=== PATIENT | male | born 1945 | race Caucasian/White ===

== ENCOUNTER 2022-01-22 03:25 | Emergency (ER) | payer MEDICARE, OTHER ==
[~2022-01-22] VITALS: Ht 185.4 cm; Wt 102.0 kg
[~2022-01-22 03:25] MED LIST: HYDROCHLOROTHIA25 MG PO; LOSARTAN POTASS50 MG PO
[2022-01-22] MEDS ORDERED: ATORVASTATIN CA10 MG PO (03:40)
[2022-01-22] MEDS ORDERED: BENZONATATE100 MG PO (05:15)
== END 2022-01-22 05:40 | disposition home or self-care (01) ==
LOC: ED 03:25
DX: J18.9 Pneumonia, unspecified organism (principal); E78.00 Pure hypercholesterolemia, unspecified; Z79.899 Other long term (current) drug therapy
CPT/HCPCS: 36415; 71046; 80053; 83880; 85025; 99285-25

== ENCOUNTER 2022-10-03 10:32 | Emergency (ER) | payer MEDICARE, OTHER ==
[~2022-10-03] VITALS: Ht 185.4 cm; Wt 104.2 kg
[~2022-10-03 10:32] MED LIST changes: +ATORVASTATIN CA10 MG PO; +BENZONATATE100 MG PO
[2022-10-03] MEDS ORDERED: HYDROCHLOROTHIA25 MG PO (10:48)
[2022-10-03] MEDS ORDERED: CEPHALEXIN500 M1 PO (11:20)
== END 2022-10-03 14:11 | disposition home or self-care (01) ==
LOC: ED 10:32
PROC: 0KQC0ZZ Repair Right Hand Muscle, Open Approach (ICD-10-PCS; principal; 2022-10-03)
DX: S66.821A Laceration of other specified muscles, fascia and tendons at wrist and hand level, right hand, initial encounter (principal); Z23 Encounter for immunization; Z79.899 Other long term (current) drug therapy; W27.0XXA Contact with workbench tool, initial encounter
CPT/HCPCS: 12002; 90471; 90715; 99282-25; A9270; J1885

== ENCOUNTER 2023-04-11 08:25 | Emergency (ER) | payer MEDICARE, OTHER ==
[~2023-04-11] VITALS: Ht 185.4 cm; Wt 103.9 kg
--- OUTSIDE RECORDS SUMMARY | ~2023-04-11 | XMS | Continuity of Care Document ---
Demographics + + + | Address | [address] | | | [place] [address] | + + + | Preferred Language | Unknown | + + + | Marital Status | | + + + | Jain Affiliation | Unknown | + + + | Race | White | + + + | Ethnic Group | or | + + + Author + + + | Author | [facility] | + + + | Organization | [facility] | + + + | Address | [address] | | | [place] [address] | + + + | Phone | | + + + Care Team Providers + + + + | Care Buffing Machine Tender Name | Role | Phone | + + + + Unavailable | Unavailable | + + + + Unavailable | Unavailable | + + + + Unavailable | Unavailable | + + + + Unavailable | Unavailable | + + + + Unavailable | Unavailable | + + + + Unavailable | Unavailable | + + + + Allergies and Intolerances + + + + + + | date | description | facility | reaction | severity | + + + + + + | (no date) | NO ALLERGY | [facility] | (no reaction) | (no severity) | | | INFORMATION | [facility] System - | | | | | AVAILABLE | [place] | | | + + + + + + | (no date) | NO KNOWN | [facility] | (no reaction) | (no severity) | | | ALLERGIES | Health System - | | | | | | [place] | | | + + + + + + | (no date) | No Known Drug | [facility] | (no reaction) | (no severity) | | | Allergies | | | | + + + + + + | (no date) | NO KNOWN | [facility] | (no reaction) | (no severity) | | | ALLERGIES | | | | + + + + + + Encounters No information. Functional Status No information. Immunizations + + + + | date | description | facility | + + + + | 2022-10-03 00:00 | Tdap | [facility] | + + + + Medications + + + + | date | description | facility | + + + + | 2022-10-03 00:00 | CEPHALEXIN | [facility] | + + + + | 2021-11-12 00:00 | [id number] 200 actuat | [facility] | | | albuterol 0.09 mg/actuat | [facility] [place] | | | metered dose inhaler | | + + + + | 2022-10-03 00:00 | HYDROCHLOROTHIAZIDE | [facility] | + + + + | 2021-02-25 00:00 | hydrochlorothiazide 25 mg | [facility] | | | oral tablet | [facility] [place] | + + + + | 2022-10-03 00:00 | ATORVASTATIN CALCIUM | [facility] | + + + + | 2020-12-31 00:00 | atorvastatin calcium 10 mg | [facility] | | | oral tablet | [facility] [place] | + + + + | 2022-01-06 00:00 | fluticasone propionate 0.25 | [facility] | | | mg / salmeterol 0.05 mg | [facility] [place] | | | per actuat dry powder | | | | inhaler, 60 actuat | | + + + + | 2022-10-03 00:00 | LOSARTAN POTASSIUM | [facility] | + + + + | 2022-01-14 00:00 | losartan potassium 50 mg | [facility] | | | oral tablet | [facility] [place] | + + + + Problems + + + + | date | description | facility | + + + + | (no date) | Pneumonia, unspecified | [facility] - | | | organism | [place] | + + + + | (no date) | Abnormal findings on | [facility] - | | | diagnostic imaging of other | [place] | | | specified body structures | | + + + + | (no date) | Abnormal findings on | [facility] - | | | diagnostic imaging of other | [place] | | | specified body structures | | + + + + | (no date) | Encounter for screening | [facility] - | | | for infectious and | [place] | | | parasitic diseases, | | | | unspecified | | + + + + | 2022-01-13 00:00 | imaging of thorax abnormal | [facility] | | | (finding) | [facility] [place] | + + + + | 2022-01-13 00:00 | upward displacement of | [facility] | | | diaphragm | [facility] [place] | + + + + | 2022-01-13 00:00 | Elevated diaphragm | [facility] | | | | [facility] [place] | + + + + | 2022-01-13 00:00 | Abnormal CXR | [facility] | | | | [facility] [place] | + + + + | 2022-01-13 07:52:12 | Abnormal findings on | [facility] - | | | diagnostic imaging of other | [place] | | | specified body structures | | + + + + | 2022-01-13 11:21:09 | Disorders of diaphragm | [facility] - | | | | [place] | + + + + | 2022-01-13 11:21:09 | Abnormal findings on | [facility] - | | | diagnostic imaging of other | [place] | | | specified body structures | | + + + + | 2022-01-13 12:30:36 | Abnormal findings on | [facility] - | | | diagnostic imaging of other | [place] | | | specified body structures | | + + + + | 2022-01-13 13:02:15 | Abnormal findings on | [facility] - | | | diagnostic imaging of other | [place] | | | specified body structures | | + + + + | 2022-01-22 00:00 | Atypical pneumonia | [facility] | + + + + | 2022-01-22 03:27 | Pure hypercholesterolemia, | [facility] | | | unspecified | [facility] | + + + + | 2022-01-22 03:27 | Pneumonia, unspecified | [facility] | | | organism | [facility] | + + + + | 2022-01-22 03:27 | Cough, unspecified | [facility] | | | | [facility] | + + + + | 2022-01-22 03:27 | Other retirement (current) | [facility] | | | drug therapy | [facility] | + + + + | 2022-03-12 07:28 | Other nonspecific abnormal | [facility] - | | | finding of lung field | [place] | + + + + | 2022-03-19 10:30:59 | Pneumonia, unspecified | [facility] - | | | organism | [place] | + + + + | 2022-04-28 11:47:19 | Pneumonia, unspecified | [facility] - | | | organism | [place] | + + + + | 2022-05-10 14:58 | Diarrhea | [facility] | + + + + | 2022-05-10 19:47:36 | Pneumonia, unspecified | [facility] | | | organism | | + + + + | 2022-07-02 07:13 | SPONDYLOSIS, UNSPECIFIED | [facility] | + + + + | 2022-10-03 00:00 | Laceration of hand | [facility] | + + + + Procedures No information. Results/Labs +--------+--------+ +---------+--------+---------+ | test | date | facility | value | unit | notes | +--------+--------+ +---------+--------+---------+ + + | Result panel 1 | + + + + + + + + + | Specimen | (no date) | [facility] | (missing) | (missing) | (missing) | | collection | | Pulmonary | | | | | (procedure) | | [facility] [place] | | | | + + + + + + + + + | Result panel 2 | + + + + + + + + + | Specimen | (no date) | [facility] | (missing) | (missing) | (missing) | | collection | | Pulmonary | | | | | (procedure) | | [facility] [place] | | | | + + + + + + + + + | Result panel 3 | + + + + + + + + + | | (no date) | [facility] | (missing) | (missing) | (missing) | | (unavailable | | Pulmonary | | | | | ) | | [facility] [place] | | | | + + + + + + + + + | Result panel 4 | + + + + + + + + + | Specimen | (no date) | [facility] | (missing) | (missing) | (missing) | | collection | | Pulmonary | | | | | (procedure) | | [facility] [place] | | | | + + + + + + + + + | Result panel 5 | + + + + + + + + + | | (no date) | [facility] | (missing) | (missing) | (missing) | | (unavailable | | Pulmonary | | | | | ) | | [facility] [place] | | | | + + + + + + + + + | Result panel 6 | + + + + + + + + + | Specimen | (no date) | [facility] | (missing) | (missing) | (missing) | | collection | | Pulmonary | | | | | (procedure) | | [facility] [place] | | | | + + + + + + + + + | Result panel 7 | + + + + + + + + + | | (no date) | [facility] | (missing) | (missing) | (missing) | | (unavailable | | Pulmonary | | | | | ) | | [facility] [place] | | | | + + + + + + + + + | Result panel 8 | + + + + + +--------+---------+ + | NRBC/100 | 2022-01-13 | [facility] | 0.0 | % | (missing) | | WBCS BY | 12:30:55 | Health | | | | | AUTOMATED | | System - | | | | | COUNT | | [place] | | | | + + + +--------+---------+ + | NRBC/100 | 2022-01-13 | [facility] | 0.0 | % | (missing) | | WBCS BY | 12:30:55 | Health | | | | | AUTOMATED | | System - | | | | | COUNT | | [place] | | | | + + + +--------+---------+ + | | 2022-01-13 | [facility] | 0.0 | k/mcl | (missing) | | NRBC(10*3/UL | :30:55 | Health | | | | | ) IN BLOOD | | System - | | | | | BY AUTOMATED | | [place] | | | | | COUNT | | | | | | + + + +--------+---------+ + | | 2022-01-13 | [facility] | 0.0 | k/mcl | (missing) | | NRBC(10*3/UL | 12:30:55 | Health | | | | | ) IN BLOOD | | System - | | | | | BY AUTOMATED | | [place] | | | | | COUNT | | | | | | + + + +--------+---------+ + | IMMATURE | 2022-01-13 | [facility] | 0.03 | k/mcl | (missing) | | GRANULOCYTE | 12:30:55 | Health | | | | | (ABS) | | System - | | | | | | | [place] | | | | + + + +--------+---------+ + | IMMATURE | 2022-01-13 | [facility] | 0.03 | k/mcl | (missing) | | GRANULOCYTE | 12:30:55 | Health | | | | | (ABS) | | System - | | | | | | | [place] | | | | + + + +--------+---------+ + | BASOPHILS | 2022-01-13 | [facility] | 0.1 | k/mcl | (missing) | | (10*3/UL) IN | 12:30:55 | Health | | | | | BLOOD BY | | System - | | | | | AUTOMATED | | [place] | | | | | COUNT | | | | | | + + + +--------+---------+ + | BASOPHILS | 2022-01-13 | [facility] | 0.1 | k/mcl | (missing) | | (10*3/UL) IN | 12:30:55 | Health | | | | | BLOOD BY | | System - | | | | | AUTOMATED | | [place] | | | | | COUNT | | | | | | + + + +--------+---------+ + | IMMATURE | 2022-01-13 | [facility] | 0.3 | % | (missing) | | GRANULOCYTE | 12:30:55 | Health | | | | | % (AUTO) | | System - | | | | | | | [place] | | | | + + + +--------+---------+ + | IMMATURE | 2022-01-13 | [facility] | 0.3 | % | (missing) | | GRANULOCYTE | 12:30:55 | Health | | | | | % (AUTO) | | System - | | | | | | | [place] | | | | + + + +--------+---------+ + | EOSINOPHILS | 2022-01-13 | [facility] | 0.3 | k/mcl | (missing) | | (10*3/UL) | 12:30:55 | Health | | | | | IN BLOOD BY | | System - | | | | | AUTOMATED | | [place] | | | | | COUNT | | | | | | + + + +--------+---------+ + | EOSINOPHILS | 2022-01-13 | [facility] | 0.3 | k/mcl | (missing) | | (10*3/UL) | 12:30:55 | Health | | | | | IN BLOOD BY | | System - | | | | | AUTOMATED | | [place] | | | | | COUNT | | | | | | + + + +--------+---------+ + | | 2022-01-13 | [facility] | 0.5 | % | (missing) | | BASOPHILS/10 | 12:30:55 | Health | | | | | 0 LEUKOCYTES | | System - | | | | | IN BLOOD BY | | [place] | | | | | AUTOMATED | | | | | | | COUNT | | | | | | + + + +--------+---------+ + | | 2022-01-13 | [facility] | 0.5 | % | (missing) | | BASOPHILS/10 | 12:30:55 | Health | | | | | 0 LEUKOCYTES | | System - | | | | | IN BLOOD BY | | [place] | | | | | AUTOMATED | | | | | | | COUNT | | | | | | + + + +--------+---------+ + | MONOCYTES | 2022-01-13 | [facility] | 0.9 | k/mcl | (missing) | | (10*3/UL) IN | 12:30:55 | Health | | | | | BLOOD BY | | System - | | | | | AUTOMATED | | [place] | | | | | COUNT | | | | | | + + + +--------+---------+ + | MONOCYTES | 2022-01-13 | [facility] | 0.9 | k/mcl | (missing) | | (10*3/UL) IN | 12:30:55 | Health | | | | | BLOOD BY | | System - | | | | | AUTOMATED | | [place] | | | | | COUNT | | | | | | + + + +--------+---------+ + | PLATELET | 2022-01-13 | [facility] | 10.9 | fl | (missing) | | MEAN VOLUME | 12:30:55 | Health | | | | | (FL) IN | | System - | | | | | BLOOD BY | | [place] | | | | | AUTOMATED | | | | | | | COUNT | | | | | | + + + +--------+---------+ + | PLATELET | 2022-01-13 | [facility] | 10.9 | fl | (missing) | | MEAN VOLUME | 12:30:55 | Health | | | | | (FL) IN | | System - | | | | | BLOOD BY | | [place] | | | | | AUTOMATED | | | | | | | COUNT | | | | | | + + + +--------+---------+ + | | 2022-01-13 | [facility] | 11.6 | k/mcl | (missing) | | LEUKOCYTES(1 | 12:30:55 | Health | | | | | 0*3/UL) IN | | System - | | | | | BLOOD BY | | [place] | | | | | AUTOMATED | | | | | | | COUNT | | | | | | + + + +--------+---------+ + | | 2022-01-13 | [facility] | 11.6 | k/mcl | (missing) | | LEUKOCYTES(1 | 12::55 | Health | | | | | 0*3/UL) IN | | System - | | | | | BLOOD BY | | [place] | | | | | AUTOMATED | | | | | | | COUNT | | | | | | + + + +--------+---------+ + | HEMOGLOBIN | 2022-01-13 | [facility] | 13.9 | g/dl | (missing) | | (G/DL) IN | 12:30:55 | Health | | | | | BLOOD | | System - | | | | | | | [place] | | | | + + + +--------+---------+ + | HEMOGLOBIN | 2022-01-13 | [facility] | 13.9 | g/dl | (missing) | | (G/DL) IN | 12:30:55 | Health | | | | | BLOOD | | System - | | | | | | | [place] | | | | + + + +--------+---------+ + | ERYTHROCYTE | 2022-01-13 | [facility] | 14.8 | % | (missing) | | | 12:30:55 | Health | | | | | DISTRIBUTION | | System - | | | | | WIDTH | | [place] | | | | | (RATIO) BY | | | | | | | AUTOMATED | | | | | | | COUNT | | | | | | + + + +--------+---------+ + | ERYTHROCYTE | 2022-01-13 | [facility] | 14.8 | % | (missing) | | | 12:30:55 | Health | | | | | DISTRIBUTION | | System - | | | | | WIDTH | | [place] | | | | | (RATIO) BY | | | | | | | AUTOMATED | | | | | | | COUNT | | | | | | + + + +--------+---------+ + | | 2022-01-13 | [facility] | 2.2 | % | (missing) | | EOSINOPHILS/ | 12:30:55 | Health | | | | | 100 | | System - | | | | | LEUKOCYTES | | [place] | | | | | IN BLOOD BY | | | | | | | AUTOMATED | | | | | | | COUNT | | | | | | + + + +--------+---------+ + | | 2022-01-13 | [facility] | 2.2 | % | (missing) | | EOSINOPHILS/ | 12:30:55 | Health | | | | | 100 | | System - | | | | | LEUKOCYTES | | [place] | | | | | IN BLOOD BY | | | | | | | AUTOMATED | | | | | | | COUNT | | | | | | + + + +--------+---------+ + | LYMPHOCYTES | 2022-01-13 | [facility] | 2.9 | k/mcl | (missing) | | (10*3/UL) | 12:30:55 | Health | | | | | IN BLOOD BY | | System - | | | | | AUTOMATED | | [place] | | | | | COUNT | | | | | | + + + +--------+---------+ + | LYMPHOCYTES | 2022-01-13 | [facility] | 2.9 | k/mcl | (missing) | | (10*3/UL) | 12:30:55 | Health | | | | | IN BLOOD BY | | System - | | | | | AUTOMATED | | [place] | | | | | COUNT | | | | | | + + + +--------+---------+ + | PLATELETS | 2022-01-13 | [facility] | 206 | k/mcl | (missing) | | (10*3/UL) IN | 12:30:55 | Health | | | | | BLOOD | | System - | | | | | AUTOMATED | | [place] | | | | | COUNT | | | | | | + + + +--------+---------+ + | PLATELETS | 2022-01-13 | [facility] | 206 | k/mcl | (missing) | | (10*3/UL) IN | 12:30:55 | Health | | | | | BLOOD | | System - | | | | | AUTOMATED | | [place] | | | | | COUNT | | | | | | + + + +--------+---------+ + | | 2022-01-13 | [facility] | 24.8 | % | (missing) | | LYMPHOCYTES/ | 12:30:55 | Health | | | | | 100 | | System - | | | | | LEUKOCYTES | | [place] | | | | | IN BLOOD BY | | | | | | | AUTOMATED | | | | | | | COUNT | | | | | | + + + +--------+---------+ + | | 2022-01-13 | [facility] | 24.8 | % | (missing) | | LYMPHOCYTES/ | 12:30:55 | Health | | | | | 100 | | System - | | | | | LEUKOCYTES | | [place] | | | | | IN BLOOD BY | | | | | | | AUTOMATED | | | | | | | COUNT | | | | | | + + + +--------+---------+ + | ERYTHROCYTE | 2022-01-13 | [facility] | 29.1 | pg | (missing) | | MEAN | 12:30:55 | Health | | | | | CORPUSCULAR | | System - | | | | | HEMOGLOBIN | | [place] | | | | | (PG) BY | | | | | | | AUTOMATED | | | | | | | COUNT | | | | | | + + + +--------+---------+ + | ERYTHROCYTE | 2022-01-13 | [facility] | 29.1 | pg | (missing) | | MEAN | 12:30:55 | Health | | | | | CORPUSCULAR | | System - | | | | | HEMOGLOBIN | | [place] | | | | | (PG) BY | | | | | | | AUTOMATED | | | | | | | COUNT | | | | | | + + + +--------+---------+ + | ERYTHROCYTE | 2022-01-13 | [facility] | 32.4 | g/dl | (missing) | | MEAN | 12:30:55 | Health | | | | | CORPUSCULAR | | System - | | | | | HEMOGLOBIN | | [place] | | | | | CONCENTRATIO | | | | | | | N (G/DL) BY | | | | | | | AUTOMATED | | | | | | + + + +--------+---------+ + | ERYTHROCYTE | 2022-01-13 | [facility] | 32.4 | g/dl | (missing) | | MEAN | 12:30:55 | Health | | | | | CORPUSCULAR | | System - | | | | | HEMOGLOBIN | | [place] | | | | | CONCENTRATIO | | | | | | | N (G/DL) BY | | | | | | | AUTOMATED | | | | | | + + + +--------+---------+ + | | 2022-01-13 | [facility] | 4.78 | m/mcl | (missing) | | ERYTHROCYTES | 12:30:55 | Health | | | | | (10*6/UL) | | System - | | | | | IN BLOOD BY | | [place] | | | | | AUTOMATED | | | | | | | COUNT | | | | | | + + + +--------+---------+ + | | 2022-01-13 | [facility] | 4.78 | m/mcl | (missing) | | ERYTHROCYTES | 12:30:55 | Health | | | | | (10*6/UL) | | System - | | | | | IN BLOOD BY | | [place] | | | | | AUTOMATED | | | | | | | COUNT | | | | | | + + + +--------+---------+ + | HEMATOCRIT | 2022-01-13 | [facility] | 42.9 | % | (missing) | | (%) IN BLOOD | 12:30:55 | Health | | | | | BY | | System - | | | | | AUTOMATED | | [place] | | | | | COUNT | | | | | | + + + +--------+---------+ + | HEMATOCRIT | 2022-01-13 | [facility] | 42.9 | % | (missing) | | (%) IN BLOOD | 12:30:55 | Health | | | | | BY | | System - | | | | | AUTOMATED | | [place] | | | | | COUNT | | | | | | + + + +--------+---------+ + | | 2022-01-13 | [facility] | 64.6 | % | (missing) | | NEUTROPHILS/ | 12:30:55 | Health | | | | | 100 | | System - | | | | | LEUKOCYTES | | [place] | | | | | IN BLOOD BY | | | | | | | AUTOMATED | | | | | | | COUNT | | | | | | + + + +--------+---------+ + | | 2022-01-13 | [facility] | 64.6 | % | (missing) | | NEUTROPHILS/ | 12:30:55 | Health | | | | | 100 | | System - | | | | | LEUKOCYTES | | [place] | | | | | IN BLOOD BY | | | | | | | AUTOMATED | | | | | | | COUNT | | | | | | + + + +--------+---------+ + | NEUTROPHILS | 2022-01-13 | [facility] | 7.5 | k/mcl | (missing) | | (10*3/UL) | 12:30:55 | Health | | | | | IN BLOOD BY | | System - | | | | | AUTOMATED | | [place] | | | | | COUNT | | | | | | + + + +--------+---------+ + | NEUTROPHILS | 2022-01-13 | [facility] | 7.5 | k/mcl | (missing) | | (10*3/UL) | 12:30:55 | Health | | | | | IN BLOOD BY | | System - | | | | | AUTOMATED | | [place] | | | | | COUNT | | | | | | + + + +--------+---------+ + | | 2022-01-13 | [facility] | 7.6 | % | (missing) | | MONOCYTES/10 | 12:30:55 | Health | | | | | 0 LEUKOCYTES | | System - | | | | | IN BLOOD BY | | [place] | | | | | AUTOMATED | | | | | | | COUNT | | | | | | + + + +--------+---------+ + | | 2022-01-13 | [facility] | 7.6 | % | (missing) | | MONOCYTES/10 | 12::55 | Health | | | | | 0 LEUKOCYTES | | System - | | | | | IN BLOOD BY | | [place] | | | | | AUTOMATED | | | | | | | COUNT | | | | | | + + + +--------+---------+ + | ERYTHROCYTE | 2022-01-13 | [facility] | 89.7 | fl | (missing) | | MEAN | 12:30:55 | Health | | | | | CORPUSCULAR | | System - | | | | | VOLUME (FL) | | [place] | | | | | BY AUTOMATED | | | | | | | COUNT | | | | | | + + + +--------+---------+ + | ERYTHROCYTE | 2022-01-13 | [facility] | 89.7 | fl | (missing) | | MEAN | 12:30:55 | Health | | | | | CORPUSCULAR | | System - | | | | | VOLUME (FL) | | [place] | | | | | BY AUTOMATED | | | | | | | COUNT | | | | | | + + + +--------+---------+ + + + | Result panel 9 | + + + + + + + + + | A. FLAVUS | 2022-01-13 | [facility] | (missing) | (missing) | (missing) | | AB, | 12:30:56 | Health | | | | | PRECIPITIN | | System - | | | | | | | [place] | | | | + + + + + + + | A. | 2022-01-13 | [facility] | (missing) | (missing) | (missing) | | FUMIGATUS #1 | 12:30:56 | Health | | | | | AB, | | System - | | | | | PRECIPITIN | | [place] | | | | + + + + + + + | A. | 2022-01-13 | [facility] | (missing) | (missing) | (missing) | | FUMIGATUS #2 | 12:30:56 | Health | | | | | AB, | | System - | | | | | PRECIPITIN | | [place] | | | | + + + + + + + | A. | 2022-01-13 | [facility] | (missing) | (missing) | (missing) | | FUMIGATUS #3 | 12:30:56 | Health | | | | | AB, | | System - | | | | | PRECIPITIN | | [place] | | | | + + + + + + + | A. | 2022-01-13 | [facility] | (missing) | (missing) | (missing) | | FUMIGATUS #6 | 12:30:56 | Health | | | | | AB, | | System - | | | | | PRECIPITIN | | [place] | | | | + + + + + + + | A. | 2022-01-13 | [facility] | (missing) | (missing) | (missing) | | PULLULANS | 12:30:56 | Health | | | | | AB, | | System - | | | | | PRECIPITIN | | [place] | | | | + + + + + + + | ALLERGEN, | 2022-01-13 | [facility] | (missing) | (missing) | (missing) | | ANIMAL, | 12:30:56 | Health | | | | | FEATHER MIX | | System - | | | | | IGE | | [place] | | | | + + + + + + + | ALLERGEN, | 2022-01-13 | [facility] | (missing) | (missing) | (missing) | | FOOD, BEEF | 12:30:56 | Health | | | | | IGE | | System - | | | | | | | [place] | | | | + + + + + + + | ALLERGEN, | 2022-01-13 | [facility] | (missing) | (missing) | (missing) | | FOOD, PORK | 12:30:56 | Health | | | | | IGE | | System - | | | | | | | [place] | | | | + + + + + + + | ALLERGEN, | 2022-01-13 | [facility] | (missing) | (missing) | (missing) | | FUNGI/MOLD, | 12:30:56 | Health | | | | | PHOMA BETAE | | System - | | | | | IGE | | [place] | | | | + + + + + + + | ALLERGEN, | 2022-01-13 | [facility] | (missing) | (missing) | (missing) | | INTERP, | 12:30:56 | Health | | | | | IMMUNOCAP | | System - | | | | | SCORE IGE | | [place] | | | | + + + + + + + | Karyna CULVER | 2022-01-13 | [facility] | (missing) | (missing) | (missing) | | AB, | 12:30:56 | Health | | | | | PRECIPITIN | | System - | | | | | | | [place] | | | | + + + + + + + | TOMYON | 2022-01-13 | [facility] | (missing) | (missing) | (missing) | | SERUM AB, | 12:30:56 | Health | | | | | PRECIPITIN | | System - | | | | | | | [place] | | | | + + + + + + + | Deyanira DAIGLE | 2022-01-13 | [facility] | (missing) | (missing) | (missing) | | AB, | 12:30:56 | Health | | | | | PRECIPITIN | | System - | | | | | | | [place] | | | | + + + + + + + | T. CANDIDUS | 2022-01-13 | [facility] | (missing) | (missing) | (missing) | | AB, | 12:30:56 | Health | | | | | PRECIPITIN | | System - | | | | | | | [place] | | | | + + + + + + + | T. VULGARIS | 2022-01-13 | [facility] | (missing) | (missing) | (missing) | | #1 AB, | 12:30:56 | Health | | | | | PRECIPITIN | | System - | | | | | | | [place] | | | | + + + + + + + | A. | 2022-01-13 | [facility] | (missing) | (missing) | (missing) | | FUMIGATUS #3 | 12:30:56 | Health | | | | | AB, | | System - | | | | | PRECIPITIN | | [place] | | | | + + + + + + + | S. VIRIDIS | 2022-01-13 | [facility] | (missing) | (missing) | (missing) | | AB, | 12:30:56 | Health | | | | | PRECIPITIN | | System - | | | | | | | [place] | | | | + + + + + + + | T. MADYSONUS | 2022-01-13 | [facility] | (missing) | (missing) | (missing) | | AB, | 12:30:56 | Health | | | | | PRECIPITIN | | System - | | | | | | | [place] | | | | + + + + + + + | A. FLAVUS | 2022-01-13 | [facility] | (missing) | (missing) | (missing) | | AB, | 12:30:56 | Health | | | | | PRECIPITIN | | System - | | | | | | | [place] | | | | + + + + + + + | A. | 2022-01-13 | [facility] | (missing) | (missing) | (missing) | | FUMIGATUS #2 | 12:30:56 | Health | | | | | AB, | | System - | | | | | PRECIPITIN | | [place] | | | | + + + + + + + | ALLERGEN, | 2022-01-13 | [facility] | (missing) | (missing) | (missing) | | ANIMAL, | 12:30:56 | Health | | | | | FEATHER MIX | | System - | | | | | IGE | | [place] | | | | + + + + + + + | ALLERGEN, | 2022-01-13 | [facility] | (missing) | (missing) | (missing) | | INTERP, | 12:30:56 | Health | | | | | IMMUNOCAP | | System - | | | | | SCORE IGE | | [place] | | | | + + + + + + + | T. VULGARIS | 2022-01-13 | [facility] | (missing) | (missing) | (missing) | | #1 AB, | 12:30:56 | Health | | | | | PRECIPITIN | | System - | | | | | | | [place] | | | | + + + + + + + | ALLERGEN, | 2022-01-13 | [facility] | (missing) | (missing) | (missing) | | FOOD, BEEF | 12:30:56 | Health | | | | | IGE | | System - | | | | | | | [place] | | | | + + + + + + + | ALLERGEN, | 2022-01-13 | [facility] | (missing) | (missing) | (missing) | | FUNGI/MOLD, | 12:30:56 | Health | | | | | PHOMA BETAE | | System - | | | | | IGE | | [place] | | | | + + + + + + + | ALLERGEN, | 2022-01-13 | [facility] | (missing) | (missing) | (missing) | | FOOD, PORK | 12:30:56 | Health | | | | | IGE | | System - | | | | | | | [place] | | | | + + + + + + + | PIGEON | 2022-01-13 | [facility] | (missing) | (missing) | (missing) | | SERUM AB, | 12:30:56 | Health | | | | | PRECIPITIN | | System - | | | | | | | [place] | | | | + + + + + + + | A. | 2022-01-13 | [facility] | (missing) | (missing) | (missing) | | FUMIGATUS #1 | 12:30:56 | Health | | | | | AB, | | System - | | | | | PRECIPITIN | | [place] | | | | + + + + + + + | A. | 2022-01-13 | [facility] | (missing) | (missing) | (missing) | | FUMIGATUS #6 | 12:30:56 | Health | | | | | AB, | | System - | | | | | PRECIPITIN | | [place] | | | | + + + + + + + | A. | 2022-01-13 | [facility] | (missing) | (missing) | (missing) | | [facility] | 12:30:56 | Health | | | | | AB, | | System - | | | | | PRECIPITIN | | [place] | | | | + + + + + + + | Karyna CULVER | 2022-01-13 | [facility] | (missing) | (missing) | (missing) | | AB, | 12:30:56 | Health | | | | | PRECIPITIN | | System - | | | | | | | [place] | | | | + + + + + + + | ANTINUCLEAR | 2022-01-13 | [facility] | <1:80 | (missing) | (missing) | | AB, HEP-2 | 12:30:56 | Health | (Negative) | | | | SUBSTRATE, S | | System - | | | | | | | [place] | | | | + + + + + + + | ANTINUCLEAR | 2022-01-13 | [facility] | <1:80 | (missing) | | | AB, HEP-2 | 12:30:56 | Health | (Negative) | | -------ADDIT | | SUBSTRATE, S | | System - | | | IONAL | | | | [place] | | | INFORMATION- | | | | | | | | | | | | | | ------ | | | | | | | Method: | | | | | | | Immunofluore | | | | | | | scence using | | | | | | | HEp-2 | | | | | | | cellular | | | | | | | substrate. | | | | | | | Test | | | | | | | Performed | | | | | | | by: [facility] | | [facility] | [facility] | | | | | | | Laboratories | | | | | | | - [address] | | | | | | | [address] | | | | | | | [address] | | | [address] | | [address], | | | | | | | [place], | | | | | | | [place] [address] Lab | | | | | | | Director: | | | | | | | Robert Flowers | | | | | | | [facility] | | | | | | | Ph.D.; CHARISIA# | | | | | | | [id number] | + + + + + + + | C REACTIVE | 2022-01-13 | [facility] | 1.30 | mg/dl | (missing) | | PROTEIN | 12:30:56 | Health | | | | | (MG/DL) IN | | System - | | | | | SER/PLAS | | [place] | | | | + + + + + + + | C REACTIVE | 2022-01-13 | [facility] | 1.30 | mg/dl | (missing) | | PROTEIN | 12:30:56 | Health | | | | | (MG/DL) IN | | System - | | | | | SER/PLAS | | [place] | | | | + + + + + + + | | 2022-01-13 | [facility] | 18 | mm/hr | (missing) | | SEDIMENTATIO | :30:56 | Health | | | | | N RATE, | | System - | | | | | ERYTHROCYTE | | [place] | | | | + + + + + + + | | 2022-01-13 | [facility] | 7.5 | ku/l | (missing) | | IMMUNOGLOBUL | 12:30:56 | Health | | | | | IN E (IGE) | | System - | | | | | | | [place] | | | | + + + + + + + | | 2022-01-13 | [facility] | 7.5 | ku/l | Test | | IMMUNOGLOBUL | 12:30:56 | Health | | | Performed | | IN E (IGE) | | System - | | | by: [facility] | | | | [place] | | | [facility] | | | | | | | [facility] | | | | | | | - [place] | | | | | | | [place] | | | | | | | [address] | | | | | | | [address] | | | | | | | [address], | | | | | | | [place], | | | | | | | [place] [address] Lab | | | | | | | Director: | | | | | | | Robert Flowers | | | | | | | [facility] | | | | | | | Ph.D.; SERGIO# | | | | | | | [id number] | + + + + + + + | C-ANCA | 2022-01-13 | [facility] | Negative | (missing) | (missing) | | | 12:30:56 | Health | | | | | | | System - | | | | | | | [place] | | | | + + + + + + + | P-ANCA | 2022-01-13 | [facility] | Negative | (missing) | (missing) | | | 12:30:56 | Health | | | | | | | System - | | | | | | | [place] | | | | + + + + + + + | C-ANCA | 2022-01-13 | [facility] | Negative | (missing) | (missing) | | | 12:30:56 | Health | | | | | | | System - | | | | | | | [place] | | | | + + + + + + + | P-ANCA | 2022-01-13 | [facility] | Negative | (missing) | Negative for | | | 12:30:56 | Health | | | cANCA and | | | | System - | | | pANCA | | | | [place] | | | patterns by | | | | | | | immunofluore | | | | | | | scence. | | | | | | | | | | | | | | -------ADDIT | | | | | | | IONAL | | | | | | | INFORMATION- | | | | | | | | | | | | | | ------ This | | | | | | | test was | | | | | | | developed | | | | | | | and its | | | | | | | performance | | | | | | | characterist | | | | | | | ics | | | | | | | determined | | | | | | | by [facility] | | [facility] | [facility] in a | | | | | | | manner | | | | | | | consistent | | | | | | | with CLIA | | | | | | | requirements | | | | | | | . This test | | | | | | | has not been | | | | | | | cleared or | | | | | | | approved by | | | | | | | the [place] | | | | | | | Food and | | | | | | | Drug | | | | | | | Administrati | | | | | | | on. Test | | | | | | | Performed | | | | | | | by: [facility] | | | | [facility] | | [facility] | | | | | | | Laboratories | | | | | | | - [place] | | | | | | | [address] | | [address] | | | | | | | [address] | | | | | | | [address], | | | | | | | [place], | | | | | | | [place] [address] Lab | | | | | | | Director: | | | | | | | Robert Flowers | | | | | | | [facility] | | | | | | | Ph.D.; CLIA# | | | | | | | [id number] | + + + + + + + | SCAN RESULT | 2022-01-13 | [facility] | See Scanned | (missing) | (missing) | | | 12:30:56 | Health | Report | | | | | | System - | | | | | | | [place] | | | | + + + + + + + + + | Result panel 10 | + + + + + + + + + | | 2022-01-13 | [facility] | (missing) | (missing) | (missing) | | (unavailable | 13:02:15 | Health | | | | | ) | | System - | | | | | | | [place] | | | | + + + + + + + | | 2022-01-13 | [facility] | BONES: No | (missing) | (missing) | | (unavailable | 13:02:15 | Health | acute or | | | | ) | | System - | suspicious | | | | | | [place] | bony | | | | | | | abnormality. | | | | | | | | | | + + + + + + + | | 2022-01-13 | [facility] | COMPARISON: | (missing) | (missing) | | (unavailable | 13:02:15 | Health | None. | | | | ) | | System - | | | | | | | [place] | | | | + + + + + + + | | 2022-01-13 | [facility] | Electronical | (missing) | (missing) | | (unavailable | 13:02:15 | Health | ly signed | | | | ) | | System - | by: Darin | | | | | | [place] | MD Jamaal | | | | | | | on 01/13/2022 | | | | | | | 1:30 PM at | | | | | | | workstation | | | | | | | [id number] | | | + + + + + + + | | 2022-01-13 | [facility] | FINDINGS: | (missing) | (missing) | | (unavailable | 13:02:15 | Health | | | | | ) | | System - | | | | | | | [place] | | | | + + + + + + + | | 2022-01-13 | [facility] | HEART: | (missing) | (missing) | | (unavailable | 13:02:15 | Health | Normal in | | | | ) | | System - | size. | | | | | | [place] | | | | + + + + + + + | | 2022-01-13 | [facility] | | (missing) | (missing) | | (unavailable | 13:02:15 | Health | INDICATIONS: | | | | ) | | System - | infiltrates | | | | | | [place] | | | | + + + + + + + | | 2022-01-13 | [facility] | Ill-defined | (missing) | (missing) | | (unavailable | :02:15 | Health | bilateral | | | | ) | | System - | peripheral | | | | | | [place] | opacities. | | | | | | | Differential | | | | | | | | | | | | | | consideratio | | | | | | | ns may | | | | | | | include | | | | | | | atypical | | | | | | | infection, | | | | | | | organizing | | | | | | | pneumonia or | | | | | | | chronic | | | | | | | interstitial | | | | | | | lung | | | | | | | disease. | | | | | | | Correlation | | | | | | | with prior | | | | | | | outside | | | | | | | imaging | | | | | | | studies may | | | | | | | be useful. | | | | | | | CT chest per | | | | | | | | | | | | | | high-resolut | | | | | | | ion protocol | | | | | | | could also | | | | | | | be helpful. | | | + + + + + + + | | 2022-01-13 | [facility] | LUNGS: | (missing) | (missing) | | (unavailable | 13:02:15 | Health | Ill-defined | | | | ) | | System - | bilateral | | | | | | [place] | peripheral | | | | | | | opacities.. | | | | | | | No focal | | | | | | | consolidatio | | | | | | | n. No | | | | | | | suspicious | | | | | | | lung | | | | | | | nodules. | | | + + + + + + + | | 2022-01-13 | [facility] | MEDIASTINUM: | (missing) | (missing) | | (unavailable | 13:02:15 | Health | Normal | | | | ) | | System - | mediastinal | | | | | | [place] | contours | | | | | | | without | | | | | | | radiographic | | | | | | | evidence of | | | | | | | | | | | | | | lymphadenopa | | | | | | | thy. | | | + + + + + + + | | 2022-01-13 | [facility] | PLEURAL | (missing) | (missing) | | (unavailable | 13:02:15 | Health | SPACES: No | | | | ) | | System - | pleural | | | | | | [place] | effusion or | | | | | | | pneumothorax | | | | | | | . | | | + + + + + + + | | 2022-01-13 | [facility] | PROCEDURE: | (missing) | (missing) | | (unavailable | 13:02:15 | Health | CHEST - TWO | | | | ) | | System - | VIEWS | | | | | | [place] | | | | + + + + + + + | | 2022-01-13 | [facility] | | (missing) | (missing) | | (unavailable | 13:02:15 | Health | Procedure(s) | | | | ) | | System - | : * No | | | | | | [place] | procedures | | | | | | | listed * | | | + + + + + + + + + | Result panel 11 | + + + + + + + + + | | 2022-01-13 | [facility] | (missing) | (missing) | (missing) | | (unavailable | 20:06:55 | Pulmonary | | | | | ) | | [facility] [place] | | | | + + + + + + + + + | Result panel 12 | + + +--------+ + + + + + | Body | 2022-01-13 | [facility] | (missing) | (missing) | (missing) | | | 20:06:55 | Pulmonary | | | | | | | [facility] [place] | | | | +--------+ + + + + + + + | Result panel 13 | + + + + + +--------+ + + | | 2022-01-13 | [facility] | 11.6 | (missing) | (missing) | | (unavailable | 20:24:35 | Pulmonary | | | | | ) | | [facility] [place] | | | | + + + +--------+ + + + + | Result panel 14 | + + + + + +--------+ + + | | 2022-01-13 | [facility] | 4.78 | (missing) | (missing) | | (unavailable | 20:24:35 | Pulmonary | | | | | ) | | [facility] [place] | | | | + + + +--------+ + + + + | Result panel 15 | + + + + + +--------+--------+ + | | 2022-01-13 | [facility] | 13.9 | g/dL | (missing) | | (unavailable | 20:24:35 | Pulmonary | | | | | ) | | [facility] [place] | | | | + + + +--------+--------+ + + + | Result panel 16 | + + + + + +--------+-----+ + | | 2022-01-13 | [facility] | 42.9 | % | (missing) | | (unavailable | 20:24:35 | Pulmonary | | | | | ) | | [facility] [place] | | | | + + + +--------+-----+ + + + | Result panel 17 | + + + + + +--------+------+ + | | 2022-01-13 | [facility] | 89.7 | fl | (missing) | | (unavailable | 20:24:35 | Pulmonary | | | | | ) | | [facility] [place] | | | | + + + +--------+------+ + + + | Result panel 18 | + + + + + +--------+------+ + | | 2022-01-13 | [facility] | 29.1 | pg | (missing) | | (unavailable | 20:24:35 | Pulmonary | | | | | ) | | [facility] [place] | | | | + + + +--------+------+ + + + | Result panel 19 | + + + + + +--------+--------+ + | | 2022-01-13 | [facility] | 32.4 | g/dL | (missing) | | (unavailable | 20:24:35 | Pulmonary | | | | | ) | | [facility] [place] | | | | + + + +--------+--------+ + + + | Result panel 20 | + + + + + +--------+-----+ + | | 2022-01-13 | [facility] | 14.8 | % | (missing) | | (unavailable | 20:24:35 | Pulmonary | | | | | ) | | [facility] [place] | | | | + + + +--------+-----+ + + + | Result panel 21 | + + + + + +-------+ + + | | 2022-01-13 | [facility] | 206 | (missing) | (missing) | | (unavailable | 20:24:35 | Pulmonary | | | | | ) | | [facility] [place] | | | | + + + +-------+ + + + + | Result panel 22 | + + + + + +--------+------+ + | | 2022-01-13 | [facility] | 10.9 | fl | (missing) | | (unavailable | 20:24:35 | Pulmonary | | | | | ) | | [facility] [place] | | | | + + + +--------+------+ + + + | Result panel 23 | + + + + + +--------+-----+ + | | 2022-01-13 | [facility] | 64.6 | % | (missing) | | (unavailable | 20:24:35 | Pulmonary | | | | | ) | | [facility] [place] | | | | + + + +--------+-----+ + + + | Result panel 24 | + + + + + +--------+-----+ + | | 2022-01-13 | [facility] | 24.8 | % | (missing) | | (unavailable | 20:24:35 | Pulmonary | | | | | ) | | [facility] [place] | | | | + + + +--------+-----+ + + + | Result panel 25 | + + + + + +-------+-----+ + | | 2022-01-13 | [facility] | 7.6 | % | (missing) | | (unavailable | 20:24:35 | Pulmonary | | | | | ) | | [facility] [place] | | | | + + + +-------+-----+ + + + | Result panel 26 | + + + + + +-------+-----+ + | | 2022-01-13 | [facility] | 2.2 | % | (missing) | | (unavailable | 20:24:35 | Pulmonary | | | | | ) | | [facility] [place] | | | | + + + +-------+-----+ + + + | Result panel 27 | + + + + + +-------+-----+ + | | 2022-01-13 | [facility] | 0.5 | % | (missing) | | (unavailable | 20:24:35 | Pulmonary | | | | | ) | | [facility] [place] | | | | + + + +-------+-----+ + + + | Result panel 28 | + + + + + +-------+-----+ + | | 2022-01-13 | [facility] | 0.3 | % | (missing) | | (unavailable | 20:24:35 | Pulmonary | | | | | ) | | [facility] [place] | | | | + + + +-------+-----+ + + + | Result panel 29 | + + + + + +-------+-----+ + | | 2022-01-13 | [facility] | 0.0 | % | (missing) | | (unavailable | 20:24:35 | Pulmonary | | | | | ) | | [facility] [place] | | | | + + + +-------+-----+ + + + | Result panel 30 | + + + + + +-------+ + + | | 2022-01-13 | [facility] | 7.5 | (missing) | (missing) | | (unavailable | 20:24:35 | Pulmonary | | | | | ) | | [facility] [place] | | | | + + + +-------+ + + + + | Result panel 31 | + + + + + +-------+ + + | | 2022-01-13 | [facility] | 2.9 | (missing) | (missing) | | (unavailable | 20:24:35 | Pulmonary | | | | | ) | | [facility] [place] | | | | + + + +-------+ + + + + | Result panel 32 | + + + + + +-------+ + + | | 2022-01-13 | [facility] | 0.9 | (missing) | (missing) | | (unavailable | 20:24:35 | Pulmonary | | | | | ) | | [facility] [place] | | | | + + + +-------+ + + + + | Result panel 33 | + + + + + +-------+ + + | | 2022-01-13 | [facility] | 0.3 | (missing) | (missing) | | (unavailable | 20:24:35 | Pulmonary | | | | | ) | | [facility] [place] | | | | + + + +-------+ + + + + | Result panel 34 | + + + + + +-------+ + + | | 2022-01-13 | [facility] | 0.1 | (missing) | (missing) | | (unavailable | 20:24:35 | Pulmonary | | | | | ) | | [facility] [place] | | | | + + + +-------+ + + + + | Result panel 35 | + + + + + +--------+ + + | | 2022-01-13 | [facility] | 0.03 | (missing) | (missing) | | (unavailable | 20:24:35 | Pulmonary | | | | | ) | | [facility] [place] | | | | + + + +--------+ + + + + | Result panel 36 | + + + + + +-------+ + + | | 2022-01-13 | [facility] | 0.0 | (missing) | (missing) | | (unavailable | 20:24:35 | Pulmonary | | | | | ) | | [facility] [place] | | | | + + + +-------+ + + + + | Result panel 37 | + + + + + + + + + | | 2022-01-13 | [facility] | Abnormal | (missing) | (missing) | | (unavailable | 20:24:35 | Pulmonary | | | | | ) | | [facility] [place] | | | | + + + + + + + + + | Result panel 38 | + + + + + + + + + | | 2022-01-13 | [facility] | (missing) | (missing) | (missing) | | (unavailable | 20:30:29 | Pulmonary | | | | | ) | | [facility] [place] | | | | + + + + + + + + + | Result panel 39 | + + + + + + + + + | | 2022-01-13 | [facility] | (missing) | (missing) | (missing) | | (unavailable | 20:30:29 | Pulmonary | | | | | ) | | [facility] [place] | | | | + + + + + + + + + | Result panel 40 | + + + + + + + + + | | 2022-01-13 | [facility] | (missing) | (missing) | (missing) | | (unavailable | 20:30:29 | Pulmonary | | | | | ) | | [facility] [place] | | | | + + + + + + + + + | Result panel 41 | + + + + + +--------+---------+ + | | 2022-01-13 | [facility] | 1.30 | mg/dL | (missing) | | (unavailable | 20:49:45 | Pulmonary | | | | | ) | | [facility] [place] | | | | + + + +--------+---------+ + + + | Result panel 42 | + + + + + + + + + | | 2022-01-13 | [facility] | Abnormal | (missing) | (missing) | | (unavailable | 20:49:45 | Pulmonary | | | | | ) | | [facility] [place] | | | | + + + + + + + + + | Result panel 43 | + + + + + +------+ + + | Sed Rate | 2022-01-13 | [facility] | 18 | (missing) | (missing) | | | 21:00:47 | Pulmonary | | | | | | | [facility] [place] | | | | + + + +------+ + + + + | Result panel 44 | + + + + + + + + + | | 2022-01-13 | [facility] | Normal | (missing) | (missing) | | (unavailable | 21:00:47 | Pulmonary | | | | | ) | | [facility] [place] | | | | + + + + + + + + + | Result panel 45 | + + + + + + + + + | NON-APPLICATION DEVELOPER MANAGER | 2022-03-12 | [facility] | | (missing) | (missing) | | CYTOLOGY | 07:28 | Health | [facility] | | | | | | System - | pplication/r | | | | | | [place] | tfUnable to | | | | | | | process the | | | | | | | BASE64 data | | | | | | | that was | | | | | | | here | | | + + + + + + + | NON-APPLICATION DEVELOPER MANAGER | 2022-03-12 | [facility] | See Note: | (missing) | (missing) | | CYTOLOGY | 07:28 | Health | | | | | | | System - | | | | | | | [place] | | | | + + + + + + + | NON-APPLICATION DEVELOPER MANAGER | 2022-03-12 | [facility] | See Note: | (missing) | CASE: | | CYTOLOGY | 07:28 | Health | | | N-90 | | | | System - | | | PATIENT: | | | | [place] | | | JERMAINE RANKIN | | | | | | | Medical | | | | | | | Record #: | | | | | | | [id number] | | | | | | | Visit #: | | | | | | | [id number] | | | | | | | Location: | | | | | | | [facility] [place] | | | | | | | Date of | | | | | | | : | | | | | | | 1945 | | | | | | | Age: 76 | | | | | | | Service | | | | | | | Date: | | | | | | | 03/12/2022 | | | | | | | 10:47:11 AM | | | | | | | Gender: M | | | | | | | Received: | | | | | | | 03/12/2022 | | | | | | | Physician(s) | | | | | | | : Germain | | | | | | | Bill | | | | | | | MD Mejia Not | | | | | | | on file | | | | | | | Physician, | | | | | | | MD Tissue: | | | | | | | A) Left | | | | | | | upper lobe | | | | | | | bronchoalveo | | | | | | | lar lavage. | | | | | | | B) Left | | | | | | | lower lobe | | | | | | | transbronchi | | | | | | | al biopsy. | | | | | | | Clinical | | | | | | | Data: | | | | | | | Persistent | | | | | | | pulmonary | | | | | | | infiltrates. | | | | | | | Diagnosis: | | | | | | | A. Lung, | | | | | | | left upper | | | | | | | lobe, | | | | | | | bronchoalveo | | | | | | | lar lavage: | | | | | | | No malignant | | | | | | | cells or | | | | | | | viral | | | | | | | cytopathic | | | | | | | effect | | | | | | | identified. | | | | | | | Predominantl | | | | | | | y alveolar | | | | | | | macrophages | | | | | | | with | | | | | | | scattered | | | | | | | chronic | | | | | | | inflammatory | | | | | | | cells. AFB | | | | | | | and GMS are | | | | | | | negative for | | | | | | | acid-fast | | | | | | | bacilli and | | | | | | | fungal | | | | | | | organisms. | | | | | | | B. Lung, | | | | | | | left lower | | | | | | | lobe, | | | | | | | transbronchi | | | | | | | al biopsy: | | | | | | | Benign | | | | | | | bronchial | | | | | | | mucosa with | | | | | | | mild chronic | | | | | | | | | | | | | | inflammation | | | | | | | . Benign, | | | | | | | unremarkable | | | | | | | alveolar | | | | | | | parenchyma. | | | | | | | Gross | | | | | | | Description: | | | | | | | A. Received | | | | | | | is | | | | | | | approximatel | | | | | | | y 50 mL of | | | | | | | cloudy, | | | | | | | colorless | | | | | | | fluid in | | | | | | | Cytolyt, | | | | | | | from which | | | | | | | two | | | | | | | cytospins, a | | | | | | | ThinPrep, a | | | | | | | cell block, | | | | | | | and special | | | | | | | stains for | | | | | | | AFB and GMS | | | | | | | are | | | | | | | prepared. B. | | | | | | | Received in | | | | | | | formalin | | | | | | | are multiple | | | | | | | biopsies of | | | | | | | chavira | | | | | | | tissue, from | | | | | | | which a | | | | | | | traditional | | | | | | | cell block | | | | | | | is prepared. | | | | | | | Microscopic | | | | | | | | | | | | | | Description: | | | | | | | A. The | | | | | | | ThinPrep and | | | | | | | cell block | | | | | | | slides | | | | | | | contain | | | | | | | numerous | | | | | | | alveolar | | | | | | | macrophages | | | | | | | and | | | | | | | scattered | | | | | | | mixed | | | | | | | inflammatory | | | | | | | cells, | | | | | | | primarily | | | | | | | chronic | | | | | | | inflammatory | | | | | | | cells. No | | | | | | | malignant | | | | | | | cells or | | | | | | | viral | | | | | | | cytopathic | | | | | | | effect is | | | | | | | identified. | | | | | | | AFB and GMS | | | | | | | special | | | | | | | stains are | | | | | | | negative for | | | | | | | acid-fast | | | | | | | bacilli and | | | | | | | fungal | | | | | | | organisms. | | | | | | | Control | | | | | | | tissues | | | | | | | reacted | | | | | | | appropriatel | | | | | | | y. B. The | | | | | | | slide | | | | | | | contains | | | | | | | fragments of | | | | | | | bronchial | | | | | | | mucosa with | | | | | | | mild chronic | | | | | | | | | | | | | | inflammation | | | | | | | and | | | | | | | alveolar | | | | | | | parenchyma. | | | | | | | There is no | | | | | | | evidence of | | | | | | | malignancy, | | | | | | | significant | | | | | | | acute | | | | | | | inflammation | | | | | | | or | | | | | | | granulomas. | | | | | | | A small | | | | | | | amount of | | | | | | | anthracotic | | | | | | | pigment is | | | | | | | present. | | | | | | | IAC:cdm | | | | | | | Final | | | | | | | Diagnosis | | | | | | | performed by | | | | | | | Krys A. | | | | | | | Czyszczon | | | | | | | D.O. | | | | | | | Electronical | | | | | | | ly signed | | | | | | | 03/13/2022 | | | | | | | Service | | | | | | | provided by: | | | | | | | [facility] | [place] | | | | | | | [facility] | | | | | | | [facility], | | | | | | | [address] | | | | | | | [address] | | | | | | | [place], | | | | | | | [place] | | | | | | | [phone] | + + + + + + + + + | Result panel 46 | + + + + + +-------+ + + | POCT | 2022-03-12 | [facility] | 4.0 | mmol/l | (missing) | | POTASSIUM | 08:54 | Health | | | | | | | System - | | | | | | | [place] | | | | + + + +-------+ + + + + | Result panel 47 | + + + + + + + + + | | 2022-03-12 | [facility] | (missing) | (missing) | (missing) | | (unavailable | 09:46 | Health | | | | | ) | | System - | | | | | | | [place] | | | | + + + + + + + | | 2022-03-12 | [facility] | Electronical | (missing) | (missing) | | (unavailable | 09:46 | Health | ly signed | | | | ) | | System - | by: Valerio | | | | | | [place] | MD Chacho | | | | | | | on 03/12/2022 | | | | | | | 11:38 AM at | | | | | | | workstation | | | | | | | | | | | | | | [id number] | | | + + + + + + + | | 2022-03-12 | [facility] | FINDINGS: | (missing) | (missing) | | (unavailable | 09:46 | Health | | | | | ) | | System - | | | | | | | [place] | | | | + + + + + + + | | 2022-03-12 | [facility] | FLUORO | (missing) | (missing) | | (unavailable | 09:46 | Health | TIME: 2.077 | | | | ) | | System - | minutes | | | | | | [place] | | | | + + + + + + + | | 2022-03-12 | [facility] | | (missing) | (missing) | | (unavailable | 09:46 | Health | INDICATIONS: | | | | ) | | System - | | | | | | | [place] | Bronchoscopy | | | | | | | . | | | + + + + + + + | | 2022-03-12 | [facility] | Intraprocedu | (missing) | (missing) | | (unavailable | 09:46 | Health | ral | | | | ) | | System - | fluoroscopy | | | | | | [place] | provided to | | | | | | | the clinical | | | | | | | service for | | | | | | | surgical | | | | | | | purposes. | | | + + + + + + + | | 2022-03-12 | [facility] | PROCEDURE: | (missing) | (missing) | | (unavailable | 09:46 | Health | FLUOROSCOPY | | | | ) | | System - | - LESS THAN | | | | | | [place] | ONE HOUR | | | + + + + + + + | | 2022-03-12 | [facility] | | (missing) | (missing) | | (unavailable | 09:46 | Health | Procedure(s) | | | | ) | | System - | : * No | | | | | | [place] | procedures | | | | | | | listed * | | | + + + + + + + | | 2022-03-12 | [facility] | Several spot | (missing) | (missing) | | (unavailable | 09:46 | Health | images from | | | | ) | | System - | real time | | | | | | [place] | intraoperati | | | | | | | ve C-arm | | | | | | | fluoroscopy | | | | | | | were | | | | | | | submitted. | | | + + + + + + + + + | Result panel 48 | + + + + + + + + + | FUNGAL | 2022-03-12 | [facility] | 445 | (missing) | (missing) | | CULTURE | 10:44:16 | Health | | | | | | | System - | | | | | | | [place] | | | | + + + + + + + | FUNGAL | 2022-03-12 | [facility] | 445 | (missing) | [place] | | CULTURE | 10:44:16 | Health | | | Gold | | | | System - | | | General | | | | [place] | | | [phone] | | | | | | | Rare Yeast | | | | | | | Isolated | | | | | | | Further | | | | | | | isolation | | | | | | | required | + + + + + + + | FUNGAL | 2022-03-12 | [facility] | 528 | (missing) | (missing) | | CULTURE | 10:44:16 | Health | | | | | | | System - | | | | | | | [place] | | | | + + + + + + + | FUNGAL | 2022-03-12 | [facility] | 528 | (missing) | [place] | | CULTURE | 10:44:16 | Health | | | Gold | | | | System - | | | General | | | | [place] | | | [phone] | | | | | | | Rare | | | | | | | Eulalia | | | | | | | albicans | + + + + + + + | GRAM STAIN | 2022-03-12 | [facility] | Few | (missing) | (missing) | | | 10:44:16 | Health | Epithelial | | | | | | System - | cells | | | | | | [place] | | | | + + + + + + + | GRAM STAIN | 2022-03-12 | [facility] | Few | (missing) | (missing) | | | 10:44:16 | Health | Epithelial | | | | | | System - | cells | | | | | | [place] | | | | + + + + + + + | GRAM STAIN | 2022-03-12 | [facility] | Few Gram | (missing) | (missing) | | | 10:44:16 | Health | negative | | | | | | System - | rods | | | | | | [place] | | | | + + + + + + + | GRAM STAIN | 2022-03-12 | [facility] | Few Gram | (missing) | (missing) | | | 10:44:16 | Health | negative | | | | | | System - | rods | | | | | | [place] | | | | + + + + + + + | GRAM STAIN | 2022-03-12 | [facility] | Few Gram | (missing) | Gram stain | | | 10:44:16 | Health | negative | | performed on | | | | System - | rods | | | | | | [place] | | | concentrated | | | | | | | specimen. | + + + + + + + | GRAM STAIN | 2022-03-12 | [facility] | Few Gram | (missing) | (missing) | | | 10:44:16 | Health | positive | | | | | | System - | cocci | | | | | | [place] | | | | + + + + + + + | GRAM STAIN | 2022-03-12 | [facility] | Few Gram | (missing) | (missing) | | | 10:44:16 | Health | positive | | | | | | System - | cocci | | | | | | [place] | | | | + + + + + + + | GRAM STAIN | 2022-03-12 | [facility] | Few Gram | (missing) | (missing) | | | 10:44:16 | Health | positive | | | | | | System - | rods | | | | | | [place] | | | | + + + + + + + | GRAM STAIN | 2022-03-12 | [facility] | Few Gram | (missing) | (missing) | | | 10:44:16 | Health | positive | | | | | | System - | rods | | | | | | [place] | | | | + + + + + + + | GRAM STAIN | 2022-03-12 | [facility] | Few WBCs | (missing) | (missing) | | | 10:44:16 | Health | | | | | | | System - | | | | | | | [place] | | | | + + + + + + + | GRAM STAIN | 2022-03-12 | [facility] | Few WBCs | (missing) | (missing) | | | 10:44:16 | Health | | | | | | | System - | | | | | | | [place] | | | | + + + + + + + | GRAM STAIN | 2022-03-12 | [facility] | Few WBCs | (missing) | [facility] | | | 10:44:16 | Health | | | Gold | | | | System - | | | General | | | | [place] | | | [phone] | | | | | | | | + + + + + + + | FUNGUS | 2022-03-12 | [facility] | No Yeast or | (missing) | (missing) | | STAIN | 10:44:16 | Health | [facility] | | | | | | System - | | | | | | | [place] | | | | + + + + + + + | FUNGUS | 2022-03-12 | [facility] | No Yeast or | (missing) | [place] | | STAIN | 10:44:16 | Health | [facility] | | Gold | | | | System - | | | General | | | | [place] | | | [phone] | | | | | | | | + + + + + + + | AFB STAIN | 2022-03-12 | [facility] | No acid | (missing) | (missing) | | | 10:44:16 | Health | fast bacilli | | | | | | System - | seen on | | | | | | [place] | concentrated | | | | | | | smear | | | + + + + + + + | AFB STAIN | 2022-03-12 | [facility] | No acid | (missing) | (missing) | | | 10:44:16 | Health | fast bacilli | | | | | | System - | seen on | | | | | | [place] | concentrated | | | | | | | smear | | | + + + + + + + | AFB STAIN | 2022-03-12 | [facility] | No acid | (missing) | [place] | | | 10:44:16 | Health | fast bacilli | | Gold | | | | System - | seen on | | General | | | | [place] | concentrated | | [phone] | | | | | smear | | | + + + + + + + | AFB CULTURE | 2022-03-12 | [facility] | No growth | (missing) | (missing) | | | 10:44:16 | Health | at 1 week | | | | | | System - | | | | | | | [place] | | | | + + + + + + + | AFB CULTURE | 2022-03-12 | [facility] | No growth | (missing) | [place] | | | 10:44:16 | Health | at 1 week | | Gold | | | | System - | | | General | | | | [place] | | | [phone] | | | | | | | | + + + + + + + | AFB CULTURE | 2022-03-12 | [facility] | No growth | (missing) | (missing) | | | 10:44:16 | Health | at 2 weeks | | | | | | System - | | | | | | | [place] | | | | + + + + + + + | AFB CULTURE | 2022-03-12 | [facility] | No growth | (missing) | [place] | | | 10:44:16 | Health | at 2 weeks | | Gold | | | | System - | | | General | | | | [place] | | | [phone] | | | | | | | | + + + + + + + | AFB CULTURE | 2022-03-12 | [facility] | No growth | (missing) | (missing) | | | 10:44:16 | Health | at 3 weeks | | | | | | System - | | | | | | | [place] | | | | + + + + + + + | AFB CULTURE | 2022-03-12 | [facility] | No growth | (missing) | [place] | | | 10:44:16 | Health | at 3 weeks | | Gold | | | | System - | | | General | | | | [place] | | | [phone] | | | | | | | | + + + + + + + | AFB CULTURE | 2022-03-12 | [facility] | No growth | (missing) | (missing) | | | 10:44:16 | Health | at 4 weeks | | | | | | System - | | | | | | | [place] | | | | + + + + + + + | AFB CULTURE | 2022-03-12 | [facility] | No growth | (missing) | [place] | | | 10:44:16 | Health | at 4 weeks | | Gold | | | | System - | | | General | | | | [place] | | | [phone] | | | | | | | | + + + + + + + | AFB CULTURE | 2022-03-12 | [facility] | No growth | (missing) | (missing) | | | 10:44:16 | Health | at 5 weeks | | | | | | System - | | | | | | | [place] | | | | + + + + + + + | AFB CULTURE | 2022-03-12 | [facility] | No growth | (missing) | [place] | | | 10:44:16 | Health | at 5 weeks | | Gold | | | | System - | | | General | | | | [place] | | | [phone] | | | | | | | | + + + + + + + | AFB CULTURE | 2022-03-12 | [facility] | No growth | (missing) | (missing) | | | 10:44:16 | Health | at 6 weeks | | | | | | System - | | | | | | | [place] | | | | + + + + + + + | AFB CULTURE | 2022-03-12 | [facility] | No growth | (missing) | [place] | | | 10:44:16 | Health | at 6 weeks | | Gold | | | | System - | | | General | | | | [place] | | | [phone] | | | | | | | | + + + + + + + | RESPIRATORY | 2022-03-12 | [facility] | Normal | (missing) | (missing) | | CULTURE | 10:44:16 | Health | Respiratory | | | | | | System - | [facility] | | | | | | [place] | | | | + + + + + + + | RESPIRATORY | 2022-03-12 | [facility] | Normal | (missing) | [place] | | CULTURE | 10:44:16 | Health | Respiratory | | Gold | | | | System - | [facility] | | General | | | | [place] | | | [phone] | | | | | | | | + + + + + + + | RESPIRATORY | 2022-03-12 | [facility] | Normal | (missing) | (missing) | | CULTURE | 10:44:16 | Health | Respiratory | | | | | | System - | Jennifer. No | | | | | | [place] | pathogens | | | | | | | isolated. | | | + + + + + + + | RESPIRATORY | 2022-03-12 | [facility] | Normal | (missing) | [place] | | CULTURE | 10:44:16 | Health | Respiratory | | Gold | | | | System - | Jennifer. No | | General | | | | [place] | pathogens | | [phone] | | | | | isolated. | | | + + + + + + + + + | Result panel 49 | + + + + + + + + + | | 2022-03-12 | [facility] | 0 | /mcl | (missing) | | ERYTHROCYTES | 10:45 | Health | | | | | (MCL) IN | | System - | | | | | BODY FLUID | | [place] | | | | + + + + + + + | | 2022-03-12 | [facility] | 0 | /mcl | (missing) | | ERYTHROCYTES | 10:45 | Health | | | | | (MCL) IN | | System - | | | | | BODY FLUID | | [place] | | | | + + + + + + + | | 2022-03-12 | [facility] | 10 | % | (missing) | | MONOS-MACROS | 10:45 | Health | | | | | /100 WBC IN | | System - | | | | | BF BY MAN CT | | [place] | | | | | | | | | | | + + + + + + + | | 2022-03-12 | [facility] | 10 | % | (missing) | | MONOS-MACROS | 10:45 | Health | | | | | /100 WBC IN | | System - | | | | | BF BY MAN CT | | [place] | | | | | | | | | | | + + + + + + + | NUCLEATED | 2022-03-12 | [facility] | 224 | /mcl | (missing) | | CELLS IN | 10:45 | Health | | | | | BODY FLUID | | System - | | | | | | | [place] | | | | + + + + + + + | NUCLEATED | 2022-03-12 | [facility] | 224 | /mcl | | | CELLS IN | 10:45 | Health | | | Intracellula | | BODY FLUID | | System - | | | r bacteria | | | | [place] | | | noted. | + + + + + + + | BRONCHIAL | 2022-03-12 | [facility] | 4 | % | (missing) | | EPI/200 WBC | 10:45 | Health | | | | | BY MAN CT | | System - | | | | | | | [place] | | | | + + + + + + + | | 2022-03-12 | [facility] | 4 | % | (missing) | | EOSINOPHILS/ | 10:45 | Health | | | | | 100 WBC IN | | System - | | | | | BF BY MANUAL | | [place] | | | | | [place] | | | | | | + + + + + + + | SQUAMOUS | 2022-03-12 | [facility] | 4 | % | (missing) | | EPI/200 WBC | 10:45 | Health | | | | | IN BF BY MAN | | System - | | | | | [place] | | [place] | | | | + + + + + + + | | 2022-03-12 | [facility] | 4 | % | (missing) | | EOSINOPHILS/ | 10:45 | Health | | | | | 100 WBC IN | | System - | | | | | BF BY MANUAL | | [place] | | | | | [place] | | | | | | + + + + + + + | SQUAMOUS | 2022-03-12 | [facility] | 4 | % | (missing) | | EPI/200 WBC | 10:45 | Health | | | | | IN BF BY MAN | | System - | | | | | [place] | | [place] | | | | + + + + + + + | BRONCHIAL | 2022-03-12 | [facility] | 4 | % | (missing) | | EPI/200 WBC | 10:45 | Health | | | | | BY MAN CT | | System - | | | | | | | [place] | | | | + + + + + + + | | 2022-03-12 | [facility] | 6 | % | (missing) | | LYMPHOCYTES/ | 10:45 | Health | | | | | 100 WBC IN | | System - | | | | | BF BY MAN CT | | [place] | | | | | | | | | | | + + + + + + + | | 2022-03-12 | [facility] | 6 | % | (missing) | | LYMPHOCYTES/ | 10:45 | Health | | | | | 100 WBC IN | | System - | | | | | BF BY MAN CT | | [place] | | | | | | | | | | | + + + + + + + | | 2022-03-12 | [facility] | 73 | % | (missing) | | NEUTROPHILS/ | 10:45 | Health | | | | | 100 WBC IN | | System - | | | | | BF BY MAN CT | | [place] | | | | | | | | | | | + + + + + + + | | 2022-03-12 | [facility] | 73 | % | [place] | | NEUTROPHILS/ | 10:45 | Health | | | Gold | | 100 WBC IN | | System - | | | General | | BF BY MAN CT | | [place] | | | [phone] | | | | | | | | + + + + + + + | VOLUME OF | 2022-03-12 | [facility] | 9.0 | ml | (missing) | | BODY FLUID | 10:45 | Health | | | | | | | System - | | | | | | | [place] | | | | + + + + + + + | VOLUME OF | 2022-03-12 | [facility] | 9.0 | ml | [place] | | BODY FLUID | 10:45 | Health | | | Gold | | | | System - | | | General | | | | [place] | | | [phone] | | | | | | | | + + + + + + + | APPEARANCE | 2022-03-12 | [facility] | Cloudy | (missing) | (missing) | | OF BODY | 10:45 | Health | | | | | FLUID | | System - | | | | | | | [place] | | | | + + + + + + + | APPEARANCE | 2022-03-12 | [facility] | Cloudy | (missing) | (missing) | | OF BODY | 10:45 | Health | | | | | FLUID | | System - | | | | | | | [place] | | | | + + + + + + + | COLOR OF | 2022-03-12 | [facility] | Colorless | (missing) | (missing) | | BODY FLUID | 10:45 | Health | | | | | | | System - | | | | | | | [place] | | | | + + + + + + + | COLOR OF | 2022-03-12 | [facility] | Colorless | (missing) | (missing) | | BODY FLUID | 10:45 | Health | | | | | | | System - | | | | | | | [place] | | | | + + + + + + + + + | Result panel 50 | + + + + + + + + + | ADENOVIRUS | 2022-03-12 | [facility] | (missing) | (missing) | (missing) | | | 10:47:11 | Health | | | | | | | System - | | | | | | | [place] | | | | + + + + + + + | ADENOVIRUS | 2022-03-12 | [facility] | (missing) | (missing) | Currently | | | 10:47:11 | Health | | | there is an | | | | System - | | | increased | | | | [place] | | | risk of | | | | | | | false | | | | | | | negative | | | | | | | Adenovirus | | | | | | | results when | | | | | | | using the | | | | | | | [employer] | | | | | | | Pneumonia | | | | | | | Panel.? If | | | | | | | Adenovirus | | | | | | | is | | | | | | | suspected, | | | | | | | further | | | | | | | testing is | | | | | | | required. | + + + + + + + | AFB CULTURE | 2022-03-12 | [facility] | [phone] | (missing) | (missing) | | | 10:47:11 | Health | | | | | | | System - | | | | | | | [place] | | | | + + + + + + + | AFB CULTURE | 2022-03-12 | [facility] | [phone] | (missing) | [facility] | | | 10:47:11 | Health | | | Gold | | | | System - | | | General | | | | [place] | | | [phone] | | | | | | | From Liquid | | | | | | | Media Only | | | | | | | Acid Fast | | | | | | | Bacilli | | | | | | | Isolated | | | | | | | Isolate has | | | | | | | been sent to | | | | | | | reference | | | | | | | laboratory | | | | | | | for further | | | | | | | testing. | | | | | | | Please see | | | | | | | separate | | | | | | | report for | | | | | | | test | | | | | | | results. | + + + + + + + | AFB CULTURE | 2022-03-12 | [facility] | [phone] | (missing) | [facility] | | | 10:47:11 | Health | | | Gold | | | | System - | | | General | | | | [place] | | | [phone] | | | | | | | From Liquid | | | | | | | Media Only | | | | | | | Acid Fast | | | | | | | Bacilli | | | | | | | Isolated | + + + + + + + | CTX-M | 2022-03-12 | [facility] | N/A | (missing) | (missing) | | | 10:47:11 | Health | | | | | | | System - | | | | | | | [place] | | | | + + + + + + + | IMP | 2022-03-12 | [facility] | N/A | (missing) | (missing) | | | 10:47:11 | Health | | | | | | | System - | | | | | | | [place] | | | | + + + + + + + | KPC | 2022-03-12 | [facility] | N/A | (missing) | (missing) | | | 10:47:11 | Health | | | | | | | System - | | | | | | | [place] | | | | + + + + + + + | MECA/C | 2022-03-12 | [facility] | N/A | (missing) | (missing) | | | 10:47:11 | Health | | | | | | | System - | | | | | | | [place] | | | | + + + + + + + | NDM | 2022-03-12 | [facility] | N/A | (missing) | (missing) | | | 10:47:11 | Health | | | | | | | System - | | | | | | | [place] | | | | + + + + + + + | OXA-48-LIKE | 2022-03-12 | [facility] | N/A | (missing) | (missing) | | | 10:47:11 | Health | | | | | | | System - | | | | | | | [place] | | | | + + + + + + + | VIM | 2022-03-12 | [facility] | N/A | (missing) | (missing) | | | 10:47:11 | Health | | | | | | | System - | | | | | | | [place] | | | | + + + + + + + | KPC | 2022-03-12 | [facility] | N/A | (missing) | (missing) | | | 10:47:11 | Health | | | | | | | System - | | | | | | | [place] | | | | + + + + + + + | NDM | 2022-03-12 | [facility] | N/A | (missing) | (missing) | | | 10:47:11 | Health | | | | | | | System - | | | | | | | [place] | | | | + + + + + + + | IMP | 2022-03-12 | [facility] | N/A | (missing) | (missing) | | | 10:47:11 | Health | | | | | | | System - | | | | | | | [place] | | | | + + + + + + + | VIM | 2022-03-12 | [facility] | N/A | (missing) | (missing) | | | 10:47:11 | Health | | | | | | | System - | | | | | | | [place] | | | | + + + + + + + | OXA-48-LIKE | 2022-03-12 | [facility] | N/A | (missing) | (missing) | | | 10:47:11 | Health | | | | | | | System - | | | | | | | [place] | | | | + + + + + + + | CTX-M | 2022-03-12 | [facility] | N/A | (missing) | (missing) | | | 10:47:11 | Health | | | | | | | System - | | | | | | | [place] | | | | + + + + + + + | GRAM STAIN | 2022-03-12 | [facility] | No | (missing) | (missing) | | | 10:47:11 | Health | Epithelial | | | | | | System - | cells | | | | | | [place] | | | | + + + + + + + | GRAM STAIN | 2022-03-12 | [facility] | No | (missing) | (missing) | | | 10:47:11 | Health | Epithelial | | | | | | System - | cells | | | | | | [place] | | | | + + + + + + + | GRAM STAIN | 2022-03-12 | [facility] | No WBCs | (missing) | (missing) | | | 10:47:11 | Health | | | | | | | System - | | | | | | | [place] | | | | + + + + + + + | GRAM STAIN | 2022-03-12 | [facility] | No WBCs | (missing) | (missing) | | | 10:47:11 | Health | | | | | | | System - | | | | | | | [place] | | | | + + + + + + + | GRAM STAIN | 2022-03-12 | [facility] | No WBCs | (missing) | [facility] | | | 10:47:11 | Health | | | Gold | | | | System - | | | General | | | | [place] | | | [phone] | | | | | | | Gram stain | | | | | | | performed on | | | | | | | | | | | | | | concentrated | | | | | | | specimen. | + + + + + + + | GRAM STAIN | 2022-03-12 | [facility] | No WBCs | (missing) | [facility] | | | 10:47:11 | Health | | | Gold | | | | System - | | | General | | | | [place] | | | [phone] | | | | | | | | + + + + + + + | FUNGUS | 2022-03-12 | [facility] | No Yeast or | (missing) | (missing) | | STAIN | 10:47:11 | Health | [facility] | | | | | | System - | | | | | | | [place] | | | | + + + + + + + | FUNGUS | 2022-03-12 | [facility] | No Yeast or | (missing) | [place] | | STAIN | 10:47:11 | Health | [facility] | | Gold | | | | System - | | | General | | | | [place] | | | [phone] | | | | | | | | + + + + + + + | AFB STAIN | 2022-03-12 | [facility] | No acid | (missing) | (missing) | | | 10:47:11 | Health | fast bacilli | | | | | | System - | seen on | | | | | | [place] | concentrated | | | | | | | smear | | | + + + + + + + | AFB STAIN | 2022-03-12 | [facility] | No acid | (missing) | (missing) | | | 10:47:11 | Health | fast bacilli | | | | | | System - | seen on | | | | | | [place] | concentrated | | | | | | | smear | | | + + + + + + + | AFB STAIN | 2022-03-12 | [facility] | No acid | (missing) | [facility] | | | 10:47:11 | Health | fast bacilli | | Gold | | | | System - | seen on | | General | | | | [place] | concentrated | | [phone] | | | | | smear | | | + + + + + + + | AFB CULTURE | 2022-03-12 | [facility] | No growth | (missing) | (missing) | | | 10:47:11 | Health | at 1 week | | | | | | System - | | | | | | | [place] | | | | + + + + + + + | FUNGAL | 2022-03-12 | [facility] | No growth | (missing) | (missing) | | CULTURE | 10:47:11 | Health | at 1 week | | | | | | System - | | | | | | | [place] | | | | + + + + + + + | AFB CULTURE | 2022-03-12 | [facility] | No growth | (missing) | [facility] | | | 10:47:11 | Health | at 1 week | | Gold | | | | System - | | | General | | | | [place] | | | [phone] | | | | | | | | + + + + + + + | FUNGAL | 2022-03-12 | [facility] | No growth | (missing) | [place] | | CULTURE | 10:47:11 | Health | at 1 week | | Gold | | | | System - | | | General | | | | [place] | | | [phone] | | | | | | | | + + + + + + + | AFB CULTURE | 2022-03-12 | [facility] | No growth | (missing) | (missing) | | | 10:47:11 | Health | at 2 weeks | | | | | | System - | | | | | | | [place] | | | | + + + + + + + | FUNGAL | 2022-03-12 | [facility] | No growth | (missing) | (missing) | | CULTURE | 10:47:11 | Health | at 2 weeks | | | | | | System - | | | | | | | [place] | | | | + + + + + + + | AFB CULTURE | 2022-03-12 | [facility] | No growth | (missing) | [facility] | | | 10:47:11 | Health | at 2 weeks | | Gold | | | | System - | | | General | | | | [place] | | | [phone] | | | | | | | | + + + + + + + | FUNGAL | 2022-03-12 | [facility] | No growth | (missing) | [place] | | CULTURE | 10:47:11 | Health | at 2 weeks | | Gold | | | | System - | | | General | | | | [place] | | | [phone] | | | | | | | | + + + + + + + | AFB CULTURE | 2022-03-12 | [facility] | No growth | (missing) | (missing) | | | 10:47:11 | Health | at 3 weeks | | | | | | System - | | | | | | | [place] | | | | + + + + + + + | FUNGAL | 2022-03-12 | [facility] | No growth | (missing) | (missing) | | CULTURE | 10:47:11 | Health | at 3 weeks | | | | | | System - | | | | | | | [place] | | | | + + + + + + + | AFB CULTURE | 2022-03-12 | [facility] | No growth | (missing) | [facility] | | | 10:47:11 | Health | at 3 weeks | | Gold | | | | System - | | | General | | | | [place] | | | [phone] | | | | | | | | + + + + + + + | FUNGAL | 2022-03-12 | [facility] | No growth | (missing) | [place] | | CULTURE | 10:47:11 | Health | at 3 weeks | | Gold | | | | System - | | | General | | | | [place] | | | [phone] | | | | | | | | + + + + + + + | AFB CULTURE | 2022-03-12 | [facility] | No growth | (missing) | (missing) | | | 10:47:11 | Health | at 4 weeks | | | | | | System - | | | | | | | [place] | | | | + + + + + + + | FUNGAL | 2022-03-12 | [facility] | No growth | (missing) | (missing) | | CULTURE | 10:47:11 | Health | at 4 weeks | | | | | | System - | | | | | | | [place] | | | | + + + + + + + | AFB CULTURE | 2022-03-12 | [facility] | No growth | (missing) | [facility] | | | 10:47:11 | Health | at 4 weeks | | Gold | | | | System - | | | General | | | | [place] | | | [phone] | | | | | | | | + + + + + + + | FUNGAL | 2022-03-12 | [facility] | No growth | (missing) | [facility] | | CULTURE | 10:47:11 | Health | at 4 weeks | | Gold | | | | System - | | | General | | | | [place] | | | [phone] | | | | | | | | + + + + + + + | AFB CULTURE | 2022-03-12 | [facility] | No growth | (missing) | (missing) | | | 10:47:11 | Health | at 5 weeks | | | | | | System - | | | | | | | [place] | | | | + + + + + + + | AFB CULTURE | 2022-03-12 | [facility] | No growth | (missing) | [facility] | | | 10:47:11 | Health | at 5 weeks | | Gold | | | | System - | | | General | | | | [place] | | | [phone] | | | | | | | | + + + + + + + | AFB CULTURE | 2022-03-12 | [facility] | No growth | (missing) | (missing) | | | 10:47:11 | Health | at 6 weeks | | | | | | System - | | | | | | | [place] | | | | + + + + + + + | AFB CULTURE | 2022-03-12 | [facility] | No growth | (missing) | [facility] | | | 10:47:11 | Health | at 6 weeks | | Gold | | | | System - | | | General | | | | [place] | | | [phone] | | | | | | | | + + + + + + + | GRAM STAIN | 2022-03-12 | [facility] | No | (missing) | (missing) | | | 10:47:11 | Health | organisms | | | | | | System - | seen | | | | | | [place] | | | | + + + + + + + | GRAM STAIN | 2022-03-12 | [facility] | No | (missing) | (missing) | | | 10:47:11 | Health | organisms | | | | | | System - | seen | | | | | | [place] | | | | + + + + + + + | RESPIRATORY | 2022-03-12 | [facility] | Normal | (missing) | (missing) | | CULTURE | 10:47:11 | Health | Respiratory | | | | | | System - | [facility] | | | | | | [place] | | | | + + + + + + + | RESPIRATORY | 2022-03-12 | [facility] | Normal | (missing) | [facility] | | CULTURE | 10:47:11 | Health | Respiratory | | Gold | | | | System - | [facility] | | General | | | | [place] | | | [phone] | | | | | | | Gram stain | | | | | | | performed on | | | | | | | | | | | | | | concentrated | | | | | | | specimen. | + + + + + + + | RESPIRATORY | 2022-03-12 | [facility] | Normal | (missing) | (missing) | | CULTURE | 10:47:11 | Health | Respiratory | | | | | | System - | [facility]. No | | | | | | [place] | pathogens | | | | | | | isolated. | | | + + + + + + + | RESPIRATORY | 2022-03-12 | [facility] | Normal | (missing) | [facility] | | CULTURE | 10:47:11 | Health | Respiratory | | Gold | | | | System - | [facility]. No | | General | | | | [place] | pathogens | | [phone] | | | | | isolated. | | Gram stain | | | | | | | performed on | | | | | | | | | | | | | | concentrated | | | | | | | specimen. | + + + + + + + | CHLAMYDIA | 2022-03-12 | [facility] | Not | (missing) | (missing) | | PNEUMONIAE | 10:47:11 | Health | Detected | | | | | | System - | | | | | | | [place] | | | | + + + + + + + | CORONAVIRUS | 2022-03-12 | [facility] | Not | (missing) | (missing) | | | 10:47:11 | Health | Detected | | | | | | System - | | | | | | | [place] | | | | + + + + + + + | HUMAN | 2022-03-12 | [facility] | Not | (missing) | (missing) | | METAPNEUMOVI | 10:47:11 | Health | Detected | | | | JOSE | | System - | | | | | | | [place] | | | | + + + + + + + | HUMAN | 2022-03-12 | [facility] | Not | (missing) | (missing) | | RHINOVIRUS/E | 10:47:11 | Health | Detected | | | | NTEROVIRUS | | System - | | | | | | | [place] | | | | + + + + + + + | INFLUENZA A | 2022-03-12 | [facility] | Not | (missing) | (missing) | | | 10:47:11 | Health | Detected | | | | | | System - | | | | | | | [place] | | | | + + + + + + + | INFLUENZA B | 2022-03-12 | [facility] | Not | (missing) | (missing) | | | 10:47:11 | Health | Detected | | | | | | System - | | | | | | | [place] | | | | + + + + + + + | LEGIONELLA | 2022-03-12 | [facility] | Not | (missing) | (missing) | | PNEUMONIAE | 10:47:11 | Health | Detected | | | | | | System - | | | | | | | [place] | | | | + + + + + + + | MYCOPLASMA | 2022-03-12 | [facility] | Not | (missing) | (missing) | | PNEUMONIAE | 10:47:11 | Health | Detected | | | | | | System - | | | | | | | [place] | | | | + + + + + + + | | 2022-03-12 | [facility] | Not | (missing) | (missing) | | PARAINFLUENZ | 10:47:11 | Health | Detected | | | | A VIRUS | | System - | | | | | | | [place] | | | | + + + + + + + | RESPIRATORY | 2022-03-12 | [facility] | Not | (missing) | (missing) | | SYNCYTIAL | 10:47:11 | Health | Detected | | | | VIRUS | | System - | | | | | | | [place] | | | | + + + + + + + | HUMAN | 2022-03-12 | [facility] | Not | (missing) | (missing) | | RHINOVIRUS/E | 10:47:11 | Health | Detected | | | | NTEROVIRUS | | System - | | | | | | | [place] | | | | + + + + + + + | RESPIRATORY | 2022-03-12 | [facility] | Not | (missing) | (missing) | | SYNCYTIAL | 10:47:11 | Health | Detected | | | | VIRUS | | System - | | | | | | | [place] | | | | + + + + + + + | | 2022-03-12 | [facility] | Not | (missing) | (missing) | | PARAINFLUENZ | 10:47:11 | Health | Detected | | | | A VIRUS | | System - | | | | | | | [place] | | | | + + + + + + + | MYCOPLASMA | 2022-03-12 | [facility] | Not | (missing) | (missing) | | PNEUMONIAE | 10:47:11 | Health | Detected | | | | | | System - | | | | | | | [place] | | | | + + + + + + + | LEGIONELLA | 2022-03-12 | [facility] | Not | (missing) | (missing) | | PNEUMONIAE | 10:47:11 | Health | Detected | | | | | | System - | | | | | | | [place] | | | | + + + + + + + | INFLUENZA B | 2022-03-12 | [facility] | Not | (missing) | (missing) | | | 10:47:11 | Health | Detected | | | | | | System - | | | | | | | [place] | | | | + + + + + + + | INFLUENZA A | 2022-03-12 | [facility] | Not | (missing) | (missing) | | | 10:47:11 | Health | Detected | | | | | | System - | | | | | | | [place] | | | | + + + + + + + | HUMAN | 2022-03-12 | [facility] | Not | (missing) | (missing) | | METAPNEUMOVI | 10:47:11 | Health | Detected | | | | JOSE | | System - | | | | | | | [place] | | | | + + + + + + + | CORONAVIRUS | 2022-03-12 | [facility] | Not | (missing) | (missing) | | | 10:47:11 | Health | Detected | | | | | | System - | | | | | | | [place] | | | | + + + + + + + | CHLAMYDIA | 2022-03-12 | [facility] | Not | (missing) | (missing) | | PNEUMONIAE | 10:47:11 | Health | Detected | | | | | | System - | | | | | | | [place] | | | | + + + + + + + | | 2022-03-12 | [facility] | Not | copies/ml | (missing) | | ENTEROBACTER | 10:47:11 | Health | Detected | | | | CLOACAE | | System - | | | | | COMPLEX | | [place] | | | | + + + + + + + | ESCHERICHIA | 2022-03-12 | [facility] | Not | copies/ml | (missing) | | COLI | 10:47:11 | Health | Detected | | | | | | System - | | | | | | | [place] | | | | + + + + + + + | HAEMOPHILUS | 2022-03-12 | [facility] | Not | copies/ml | (missing) | | INFLUENZAE | 10:47:11 | Health | Detected | | | | | | System - | | | | | | | [place] | | | | + + + + + + + | KLEBSIELLA | 2022-03-12 | [facility] | Not | copies/ml | (missing) | | AEROGENES | 10:47:11 | Health | Detected | | | | | | System - | | | | | | | [place] | | | | + + + + + + + | KLEBSIELLA | 2022-03-12 | [facility] | Not | copies/ml | (missing) | | OXYTOCA | 10:47:11 | Health | Detected | | | | | | System - | | | | | | | [place] | | | | + + + + + + + | KLEBSIELLA | 2022-03-12 | [facility] | Not | copies/ml | (missing) | | PNEUMONIAE | 10:47:11 | Health | Detected | | | | GROUP | | System - | | | | | | | [place] | | | | + + + + + + + | MORAXELLA | 2022-03-12 | [facility] | Not | copies/ml | (missing) | | CATARRHALIS | 10:47:11 | Health | Detected | | | | | | System - | | | | | | | [place] | | | | + + + + + + + | PROTEUS | 2022-03-12 | [facility] | Not | copies/ml | (missing) | | SPP. | 10:47:11 | Health | Detected | | | | | | System - | | | | | | | [place] | | | | + + + + + + + | PSEUDOMONAS | 2022-03-12 | [facility] | Not | copies/ml | (missing) | | AERUGINOSA | 10:47:11 | Health | Detected | | | | | | System - | | | | | | | [place] | | | | + + + + + + + | SERRATIA | 2022-03-12 | [facility] | Not | copies/ml | (missing) | | MARCESCENS | 10:47:11 | Health | Detected | | | | | | System - | | | | | | | [place] | | | | + + + + + + + | | 2022-03-12 | [facility] | Not | copies/ml | (missing) | | STAPHYLOCOCC | 10:47:11 | Health | Detected | | | | US AUREUS | | System - | | | | | | | [place] | | | | + + + + + + + | | 2022-03-12 | [facility] | Not | copies/ml | (missing) | | STREPTOCOCCU | 10:47:11 | Health | Detected | | | | S AGALACTIAE | | System - | | | | | | | [place] | | | | + + + + + + + | | 2022-03-12 | [facility] | Not | copies/ml | (missing) | | STREPTOCOCCU | 10:47:11 | Health | Detected | | | | S PNEUMONIAE | | System - | | | | | | | [place] | | | | + + + + + + + | | 2022-03-12 | [facility] | Not | copies/ml | (missing) | | STREPTOCOCCU | 10:47:11 | Health | Detected | | | | S PYOGENES | | System - | | | | | | | [place] | | | | + + + + + + + | | 2022-03-12 | [facility] | Not | copies/ml | (missing) | | STREPTOCOCCU | 10:47:11 | Health | Detected | | | | S PYOGENES | | System - | | | | | | | [place] | | | | + + + + + + + | | 2022-03-12 | [facility] | Not | copies/ml | (missing) | | STREPTOCOCCU | 10:47:11 | Health | Detected | | | | S PNEUMONIAE | | System - | | | | | | | [place] | | | | + + + + + + + | | 2022-03-12 | [facility] | Not | copies/ml | (missing) | | STREPTOCOCCU | 10:47:11 | Health | Detected | | | | S AGALACTIAE | | System - | | | | | | | [place] | | | | + + + + + + + | | 2022-03-12 | [facility] | Not | copies/ml | (missing) | | STAPHYLOCOCC | 10:47:11 | Health | Detected | | | | US AUREUS | | System - | | | | | | | [place] | | | | + + + + + + + | SERRATIA | 2022-03-12 | [facility] | Not | copies/ml | (missing) | | MARCESCENS | 10:47:11 | Health | Detected | | | | | | System - | | | | | | | [place] | | | | + + + + + + + | PSEUDOMONAS | 2022-03-12 | [facility] | Not | copies/ml | (missing) | | AERUGINOSA | 10:47:11 | Health | Detected | | | | | | System - | | | | | | | [place] | | | | + + + + + + + | PROTEUS | 2022-03-12 | [facility] | Not | copies/ml | (missing) | | SPP. | 10:47:11 | Health | Detected | | | | | | System - | | | | | | | [place] | | | | + + + + + + + | MORAXELLA | 2022-03-12 | [facility] | Not | copies/ml | (missing) | | CATARRHALIS | 10:47:11 | Health | Detected | | | | | | System - | | | | | | | [place] | | | | + + + + + + + | KLEBSIELLA | 2022-03-12 | [facility] | Not | copies/ml | (missing) | | PNEUMONIAE | 10:47:11 | Health | Detected | | | | GROUP | | System - | | | | | | | [place] | | | | + + + + + + + | KLEBSIELLA | 2022-03-12 | [facility] | Not | copies/ml | (missing) | | OXYTOCA | 10:47:11 | Health | Detected | | | | | | System - | | | | | | | [place] | | | | + + + + + + + | KLEBSIELLA | 2022-03-12 | [facility] | Not | copies/ml | (missing) | | AEROGENES | 10:47:11 | Health | Detected | | | | | | System - | | | | | | | [place] | | | | + + + + + + + | HAEMOPHILUS | 2022-03-12 | [facility] | Not | copies/ml | (missing) | | INFLUENZAE | 10:47:11 | Health | Detected | | | | | | System - | | | | | | | [place] | | | | + + + + + + + | ESCHERICHIA | 2022-03-12 | [facility] | Not | copies/ml | (missing) | | COLI | 10:47:11 | Health | Detected | | | | | | System - | | | | | | | [place] | | | | + + + + + + + | | 2022-03-12 | [facility] | Not | copies/ml | (missing) | | ENTEROBACTER | 10:47:11 | Health | Detected | | | | CLOACAE | | System - | | | | | COMPLEX | | [place] | | | | + + + + + + + | | 2022-03-12 | [facility] | Not | copies/ml | (missing) | | ACINETOBACTE | 10:47:11 | Health | Detected | | | | R | | System - | | | | | CALCOACETICU | | [place] | | | | | S-BAUMANNII | | | | | | | COMPLEX | | | | | | + + + + + + + | | 2022-03-12 | [facility] | Not | copies/ml | [place] | | ACINETOBACTE | 10:47:11 | Health | Detected | | Gold | | R | | System - | | | General | | CALCOACETICU | | [place] | | | [phone] | | S-BAUMANNII | | | | | This assay | | COMPLEX | | | | | is able to | | | | | | | detect | | | | | | | Coronavirus | | | | | | | 229E, OC43, | | | | | | | HKU1, and | | | | | | | NL63.? It | | | | | | | cannot | | | | | | | detect | | | | | | | SARS-CoV-2.' | | | | | | | Note: | | | | | | | Detection of | | | | | | | bacterial | | | | | | | nucleic acid | | | | | | | may be | | | | | | | indicative | | | | | | | of | | | | | | | colonizing | | | | | | | or normal | | | | | | | respiratory | | | | | | | jennifer and | | | | | | | may not | | | | | | | indicate the | | | | | | | causative | | | | | | | agent of | | | | | | | pneumonia. | | | | | | | Semi-quantit | | | | | | | ative Bin | | | | | | | (copies/mL) | | | | | | | results | | | | | | | generated by | | | | | | | the | | | | | | | [employer] | | | | | | | Pneumonia | | | | | | | Panel are | | | | | | | not | | | | | | | equivalent | | | | | | | to CFU/mL | | | | | | | and do not | | | | | | | consistently | | | | | | | correlate | | | | | | | with the | | | | | | | quantity of | | | | | | | bacterial | | | | | | | analytes | | | | | | | compared to | | | | | | | CFU/mL. For | | | | | | | specimens | | | | | | | with | | | | | | | multiple | | | | | | | bacteria | | | | | | | detected, | | | | | | | the relative | | | | | | | abundance | | | | | | | of nucleic | | | | | | | acids | | | | | | | (copies/mL) | | | | | | | may not | | | | | | | correlate | | | | | | | with the | | | | | | | relative | | | | | | | abundance of | | | | | | | bacteria as | | | | | | | determined | | | | | | | by culture | | | | | | | (CFU/mL). | | | | | | | Clinical | | | | | | | correlation | | | | | | | is advised | | | | | | | to determine | | | | | | | | | | | | | | significance | | | | | | | of | | | | | | | semi-quantit | | | | | | | ative Bin | | | | | | | (copies/mL) | | | | | | | for clinical | | | | | | | management. | | | | | | | Note: | | | | | | | Antimicrobia | | | | | | | l resistance | | | | | | | can occur | | | | | | | via multiple | | | | | | | mechanisms. | | | | | | | A Not | | | | | | | Detected | | | | | | | result for a | | | | | | | genetic | | | | | | | marker of | | | | | | | antimicrobia | | | | | | | l resistance | | | | | | | does not | | | | | | | indicate | | | | | | | susceptibili | | | | | | | ty to | | | | | | | associated | | | | | | | antimicrobia | | | | | | | l drugs or | | | | | | | drug | | | | | | | classes. A | | | | | | | Detected | | | | | | | result for a | | | | | | | genetic | | | | | | | marker of | | | | | | | antimicrobia | | | | | | | l resistance | | | | | | | cannot be | | | | | | | definitively | | | | | | | linked to | | | | | | | the | | | | | | | microorganis | | | | | | | m(s) | | | | | | | detected. | | | | | | | Culture is | | | | | | | required to | | | | | | | obtain | | | | | | | isolates for | | | | | | | | | | | | | | antimicrobia | | | | | | | l | | | | | | | susceptibili | | | | | | | ty testing | | | | | | | and | | | | | | | [employer] | | | | | | | Pneumonia | | | | | | | Panel | | | | | | | results | | | | | | | should be | | | | | | | used in | | | | | | | conjunction | | | | | | | with culture | | | | | | | results for | | | | | | | the | | | | | | | determinatio | | | | | | | n of | | | | | | | susceptibili | | | | | | | ty or | | | | | | | resistance. | + + + + + + + + + | Result panel 51 | + + + + + + + + + | | 2022-03-12 | [facility] | 0 | /mcl | (missing) | | ERYTHROCYTES | 10:48 | Health | | | | | (MCL) IN | | System - | | | | | BODY FLUID | | [place] | | | | + + + + + + + | | 2022-03-12 | [facility] | 0 | /mcl | (missing) | | ERYTHROCYTES | 10:48 | Health | | | | | (MCL) IN | | System - | | | | | BODY FLUID | | [place] | | | | + + + + + + + | | 2022-03-12 | [facility] | 1 | % | (missing) | | BASOPHILS/10 | 10:48 | Health | | | | | 0 LEUKOCYTES | | System - | | | | | IN BODY | | [place] | | | | | FLUID BY MAN | | | | | | | CT | | | | | | + + + + + + + | | 2022-03-12 | [facility] | 1 | % | (missing) | | EOSINOPHILS/ | 10:48 | Health | | | | | 100 WBC IN | | System - | | | | | BF BY MANUAL | | [place] | | | | | [place] | | | | | | + + + + + + + | | 2022-03-12 | [facility] | 1 | % | (missing) | | BASOPHILS/10 | 10:48 | Health | | | | | 0 LEUKOCYTES | | System - | | | | | IN BODY | | [place] | | | | | FLUID BY MAN | | | | | | | CT | | | | | | + + + + + + + | | 2022-03-12 | [facility] | 1 | % | (missing) | | EOSINOPHILS/ | 10:48 | Health | | | | | 100 WBC IN | | System - | | | | | BF BY MANUAL | | [place] | | | | | [place] | | | | | | + + + + + + + | | 2022-03-12 | [facility] | 25 | % | (missing) | | LYMPHOCYTES/ | 10:48 | Health | | | | | 100 WBC IN | | System - | | | | | BF BY MAN CT | | [place] | | | | | | | | | | | + + + + + + + | | 2022-03-12 | [facility] | 25 | % | (missing) | | LYMPHOCYTES/ | 10:48 | Health | | | | | 100 WBC IN | | System - | | | | | BF BY MAN CT | | [place] | | | | | | | | | | | + + + + + + + | NUCLEATED | 2022-03-12 | [facility] | 325 | /mcl | (missing) | | CELLS IN | 10:48 | Health | | | | | BODY FLUID | | System - | | | | | | | [place] | | | | + + + + + + + | NUCLEATED | 2022-03-12 | [facility] | 325 | /mcl | (missing) | | CELLS IN | 10:48 | Health | | | | | BODY FLUID | | System - | | | | | | | [place] | | | | + + + + + + + | | 2022-03-12 | [facility] | 5 | % | (missing) | | NEUTROPHILS/ | 10:48 | Health | | | | | 100 WBC IN | | System - | | | | | BF BY MAN CT | | [place] | | | | | | | | | | | + + + + + + + | | 2022-03-12 | [facility] | 5 | % | Leah | | NEUTROPHILS/ | 10:48 | Health | | | Gold | | 100 WBC IN | | System - | | | General | | BF BY MAN CT | | [place] | | | [phone] | | | | | | | | + + + + + + + | | 2022-03-12 | [facility] | 69 | % | (missing) | | MONOS-MACROS | 10:48 | Health | | | | | /100 WBC IN | | System - | | | | | BF BY MAN CT | | [place] | | | | | | | | | | | + + + + + + + | | 2022-03-12 | [facility] | 69 | % | (missing) | | MONOS-MACROS | 10:48 | Health | | | | | /100 WBC IN | | System - | | | | | BF BY MAN CT | | [place] | | | | | | | | | | | + + + + + + + | VOLUME OF | 2022-03-12 | [facility] | 8.0 | ml | (missing) | | BODY FLUID | 10:48 | Health | | | | | | | System - | | | | | | | [place] | | | | + + + + + + + | VOLUME OF | 2022-03-12 | [facility] | 8.0 | ml | Leah | | BODY FLUID | 10:48 | Health | | | Gold | | | | System - | | | General | | | | [place] | | | [phone] | | | | | | | | + + + + + + + | COLOR OF | 2022-03-12 | [facility] | Colorless | (missing) | (missing) | | BODY FLUID | 10:48 | Health | | | | | | | System - | | | | | | | [place] | | | | + + + + + + + | COLOR OF | 2022-03-12 | [facility] | Colorless | (missing) | (missing) | | BODY FLUID | 10:48 | Health | | | | | | | System - | | | | | | | [place] | | | | + + + + + + + | APPEARANCE | 2022-03-12 | [facility] | Hazy | (missing) | (missing) | | OF BODY | 10:48 | Health | | | | | FLUID | | System - | | | | | | | [place] | | | | + + + + + + + | APPEARANCE | 2022-03-12 | [facility] | Hazy | (missing) | (missing) | | OF BODY | 10:48 | Health | | | | | FLUID | | System - | | | | | | | [place] | | | | + + + + + + + + + | Result panel 52 | + + + + + + + + + | | 2022-03-12 | [facility] | (missing) | (missing) | (missing) | | (unavailable | 10:50 | Health | | | | | ) | | System - | | | | | | | [place] | | | | + + + + + + + | | 2022-03-12 | [facility] | 1. No | (missing) | (missing) | | (unavailable | 10:50 | Health | evidence of | | | | ) | | System - | complication | | | | | | [place] | post | | | | | | | bronchoscopy | | | | | | | . | | | + + + + + + + | | 2022-03-12 | [facility] | BONES: No | (missing) | (missing) | | (unavailable | 10:50 | Health | acute | | | | ) | | System - | osseous | | | | | | [place] | abnormality. | | | | | | | | | | + + + + + + + | | 2022-03-12 | [facility] | COMPARISON: | (missing) | (missing) | | (unavailable | 10:50 | Health | 01/13/2022 | | | | ) | | System - | | | | | | | [place] | | | | + + + + + + + | | 2022-03-12 | [facility] | Electronical | (missing) | (missing) | | (unavailable | 10:50 | Health | ly signed | | | | ) | | System - | by: Valerio | | | | | | [place] | MD Chacho | | | | | | | on 03/12/2022 | | | | | | | 11:41 AM at | | | | | | | workstation | | | | | | | | | | | | | | [phone] | | | + + + + + + + | | 2022-03-12 | [facility] | FINDINGS: | (missing) | (missing) | | (unavailable | 10:50 | Health | | | | | ) | | System - | | | | | | | [place] | | | | + + + + + + + | | 2022-03-12 | [facility] | HEART: | (missing) | (missing) | | (unavailable | 10:50 | Health | Normal in | | | | ) | | System - | size and | | | | | | [place] | appearance. | | | + + + + + + + | | 2022-03-12 | [facility] | INDICATION: | (missing) | (missing) | | (unavailable | 10:50 | Health | post | | | | ) | | System - | broncoscopy | | | | | | [place] | | | | + + + + + + + | | 2022-03-12 | [facility] | LUNGS: | (missing) | (missing) | | (unavailable | 10:50 | Health | Peripheral | | | | ) | | System - | reticular | | | | | | [place] | opacities | | | | | | | redemonstrat | | | | | | | ed, not well | | | | | | | assessed on | | | | | | | this | | | | | | | portable | | | | | | | radiograph. | | | | | | | Hazy opacity | | | | | | | at the | | | | | | | right | | | | | | | peripheral | | | | | | | midlung | | | | | | | favored | | | | | | | reflect | | | | | | | technique. | | | | | | | No | | | | | | | consolidatio | | | | | | | n | | | + + + + + + + | | 2022-03-12 | [facility] | MEDIASTINUM: | (missing) | (missing) | | (unavailable | 10:50 | Health | Normal | | | | ) | | System - | mediastinal | | | | | | [place] | contours | | | | | | | without | | | | | | | radiographic | | | | | | | evidence of | | | | | | | | | | | | | | lymphadenopa | | | | | | | thy. | | | + + + + + + + | | 2022-03-12 | [facility] | PLEURAL | (missing) | (missing) | | (unavailable | 10:50 | Health | SPACES: | | | | ) | | System - | Unchanged | | | | | | [place] | elevation of | | | | | | | the right | | | | | | | hemidiaphrag | | | | | | | m. No | | | | | | | pleural | | | | | | | effusion or | | | | | | | pneumothorax | | | | | | | . | | | + + + + + + + | | 2022-03-12 | [facility] | PROCEDURE: | (missing) | (missing) | | (unavailable | 10:50 | Health | CHEST - ONE | | | | ) | | System - | VIEW | | | | | | [place] | | | | + + + + + + + | | 2022-03-12 | [facility] | | (missing) | (missing) | | (unavailable | 10:50 | Health | Procedure(s) | | | | ) | | System - | : * No | | | | | | [place] | procedures | | | | | | | listed * | | | + + + + + + + | | 2022-03-12 | [facility] | SUPPORT | (missing) | (missing) | | (unavailable | 10:50 | Health | DEVICES: | | | | ) | | System - | None. | | | | | | [place] | | | | + + + + + + + + + | Result panel 53 | + + + + + + + + + | | 2022-04-28 | [facility] | (missing) | (missing) | (missing) | | (unavailable | 11:47:19 | Health | | | | | ) | | System - | | | | | | | [place] | | | | + + + + + + + | | 2022-04-28 | [facility] | BONY | (missing) | (missing) | | (unavailable | 11:47:19 | Health | THORAX: | | | | ) | | System - | Unremarkable | | | | | | [place] | . | | | + + + + + + + | | 2022-04-28 | [facility] | COMPARISON: | (missing) | (missing) | | (unavailable | 11:47:19 | Health | Chest x-ray | | | | ) | | System - | 03/12/2022. | | | | | | [place] | | | | + + + + + + + | | 2022-04-28 | [facility] | Electronical | (missing) | (missing) | | (unavailable | 11:47:19 | Health | ly signed | | | | ) | | System - | by: Marlene | | | | | | [place] | MD Thomas on | | | | | | | 04/28/2022 | | | | | | | 12:22 PM at | | | | | | | workstation | | | | | | | [phone] | | | + + + + + + + | | 2022-04-28 | [facility] | FINDINGS: | (missing) | (missing) | | (unavailable | 11:47:19 | Health | | | | | ) | | System - | | | | | | | [place] | | | | + + + + + + + | | 2022-04-28 | [facility] | HEART: | (missing) | (missing) | | (unavailable | 11:47:19 | Health | Normal size. | | | | ) | | System - | | | | | | | [place] | | | | + + + + + + + | | 2022-04-28 | [facility] | | (missing) | (missing) | | (unavailable | 11:47:19 | Health | INDICATIONS: | | | | ) | | System - | Infiltrates | | | | | | [place] | | | | + + + + + + + | | 2022-04-28 | [facility] | LUNGS: | (missing) | (missing) | | (unavailable | 11:47:19 | Health | Bibasilar | | | | ) | | System - | pulmonary | | | | | | [place] | infiltrates | | | | | | | have | | | | | | | resolved. | | | | | | | There | | | | | | | continues to | | | | | | | be | | | | | | | mamillation | | | | | | | of the right | | | | | | | | | | | | | | hemidiaphrag | | | | | | | m. | | | + + + + + + + | | 2022-04-28 | [facility] | PLEURA: No | (missing) | (missing) | | (unavailable | 11:47:19 | Health | effusions or | | | | ) | | System - | | | | | | | [place] | pneumothorax | | | | | | | . | | | + + + + + + + | | 2022-04-28 | [facility] | PROCEDURE: | (missing) | (missing) | | (unavailable | 11:47:19 | Health | CHEST - TWO | | | | ) | | System - | VIEWS | | | | | | [place] | | | | + + + + + + + | | 2022-04-28 | [facility] | | (missing) | (missing) | | (unavailable | 11:47:19 | Health | Procedure(s) | | | | ) | | System - | : * No | | | | | | [place] | procedures | | | | | | | listed * | | | + + + + + + + | | 2022-04-28 | [facility] | | (missing) | Steve Wilson | | (unavailable | 11:47:19 | Health | Procedure(s) | | clinic | | ) | | System - | : * No | | | | | | [place] | procedures | | | | | | | listed * | | | + + + + + + + | | 2022-04-28 | [facility] | Resolution | (missing) | (missing) | | (unavailable | 11:47:19 | Health | of bilateral | | | | ) | | System - | pneumonia. | | | | | | [place] | | | | + + + + + + + + + | Result panel 54 | + + + + + + + + + | MISC TEST | 2022-04-28 | [facility] | (missing) | (missing) | (missing) | | NAME | 12:04 | Health | | | | | | | System - | | | | | | | [place] | | | | + + + + + + + | MISC TEST | 2022-04-28 | [facility] | (missing) | (missing) | [facility] | | NAME | 12:04 | Health | | | Gold | | | | System - | | | General | | | | [place] | | | [phone] | | | | | | | | + + + + + + + | SCAN RESULT | 2022-04-28 | [facility] | Final | (missing) | | | | 12:04 | Health | Report, [id number] | | | | | | System - | & [facility] | | | | | | [place] | ([facility] | | | | | | | [facility] | | | | | | | [facility]) | | | + + + + + + + Social History + + + + | date | description | facility | + + + + | 2022-01-13 00:00 | Never smoked tobacco | [facility] | | | | [facility] [place] | + + + + Vital Signs + + + +---------+ | date | measurement | value | units | + + + +---------+ | 2022-01-13 00:00 | BMI | 29.93 | kg/m2 | + + + +---------+ | 2022-01-13 00:00 | BP_diastolic | 62 | mmHg | + + + +---------+ | 2022-01-13 00:00 | BP_systolic | 118 | mmHg | + + + +---------+ | 2022-01-13 00:00 | heart_rate | 79 | /min | + + + +---------+ | 2022-01-13 00:00 | o2_saturation | 93 | % | + + + +---------+ | 2022-01-13 00:00 | temperature_metric | 36.44 | C | | | | | | + + + +---------+ | 2022-01-13 00:00 | | 97.59 | F | | | temperature_standar | | | | | d | | | + + + +---------+ | 2022-01-13 00:00 | weight_metric | 100.25 | kg | + + + +---------+ | 2022-01-13 00:00 | weight_standard | 221 | lb | + + + +---------+ | 2022-10-03 00:00 | BMI | 30.3 | kg/m2 | + + + +---------+ | 2022-10-03 00:00 | BP_diastolic | 81 | mmHg | + + + +---------+ | 2022-10-03 00:00 | BP_systolic | 119 | mmHg | + + + +---------+ | 2022-10-03 00:00 | heart_rate | 75 | /min | + + + +---------+ | 2022-10-03 00:00 | height_metric | 185.42 | cm | + + + +---------+ | 2022-10-03 00:00 | height_standard | 73 | in | + + + +---------+ | 2022-10-03 00:00 | o2_saturation | 98 | % | + + + +---------+ | 2022-10-03 00:00 | respiration_rate | 18 | /min | + + + +---------+ | 2022-10-03 00:00 | temperature_metric | 37 | C | | | | | | + + + +---------+ | 2022-10-03 00:00 | | 98.6 | F | | | temperature_standar | | | | | d | | | + + + +---------+ | 2022-10-03 00:00 | weight_metric | 104.24 | kg | + + + +---------+ | 2022-10-03 00:00 | weight_standard | 229.81 | lb | + + + +---------+"
--- OUTSIDE RECORDS SUMMARY | ~2023-04-11 | XMS | Continuity of Care Document ---
Demographics + + + | Address | [address] | | | [place] [address] | + + + | Preferred Language | Unknown | + + + | Marital Status | | + + + | Mormonism Affiliation | Unknown | + + + | Race | White | + + + | Ethnic Group | or | + + + Author + + + | Author | [facility] | + + + | Organization | [facility] | + + + | Address | [address] | | | [place] [address] | + + + | Phone | | + + + Care Team Providers + + + + | Care Nursing Project Coordinator Name | Role | Phone | + [...] | 2022-10-03 00:00 | Tdap | [facility] | + + + + Medications + + + + | date | description | facility | + + + + | 2022-10-03 00:00 | CEPHALEXIN | [facility] | + + + + | 2021-11-12 00:00 | [id number] 200 actuat | [facility] | | | albuterol 0.09 mg/actuat | [facility] [place] | | | metered dose inhaler | | + + + + | 2022-10-03 00:00 | HYDROCHLOROTHIAZIDE | [facility] | + + + + | 2021-02-25 00:00 | hydrochlorothiazide 25 mg | [facility] | | | oral tablet | [facility] [place] | + + + + | 2022-10-03 00:00 | ATORVASTATIN CALCIUM | [facility] | + + + + | [...] 2022-10-03 00:00 | LOSARTAN POTASSIUM | [facility] | + + + + | 2022-01-14 00:00 | losartan potassium 50 mg | [facility] | | | oral tablet | [facility] [place] | + + + + Problems + + + + | date | description | facility | + + + + | (no date) | Pneumonia, unspecified | [facility] [place] [facility] - | | | organism | [place] | + + + + | (no date) | Abnormal findings on | [facility] - | | | diagnostic imaging of other | [place] | | | specified body structures | | + + + + | (no date) | Abnormal findings on | [facility] - | | | diagnostic imaging of other | [place] | | | specified body structures | | + + + + | (no date) | Encounter for screening | [facility] - | | | for infectious and | [place] | | | parasitic diseases, | | | | unspecified | | + + + + | 2022-01-13 00:00 | imaging of thorax abnormal | [facility] | | | (finding) | [facility] [place] | + + + + | 2022-01-13 00:00 | upward displacement of | [facility] | | | diaphragm | [facility] [place] | + + + + | 2022-01-13 00:00 | Elevated diaphragm | [facility] | | | | [facility] [place] | + + + + | 2022-01-13 00:00 | Abnormal CXR | [facility] | | | | [facility] [place] | + + + + | 2022-01-13 07:52:12 | Abnormal findings on | [facility] [place] - | | | diagnostic imaging of other | [place] | | | specified body structures | | + + + + | 2022-01-13 11:21:09 | Disorders of diaphragm | [facility] [place] - | | | | [place] | + + + + | 2022-01-13 11:21:09 | Abnormal findings on | [facility] [place] [facility] - | | | diagnostic imaging of other | [place] | | | specified body structures | | + + + + | 2022-01-13 12:30:36 | Abnormal findings on | [facility] [place] - | | | diagnostic imaging of other | [place] | | | specified body structures | | + + + + | 2022-01-13 13:02:15 | Abnormal findings on | [facility] [place] - | | | diagnostic imaging of other | [place] | | | specified body structures | | + + + + | 2022-01-22 00:00 | Atypical pneumonia | [facility] | + + + + | 2022-01-22 [...] + + | 2022-01-22 03:27 | Other usp (current) | [facility] | | | drug therapy | [facility] | + + + + | 2022-03-12 07:28 | Other nonspecific abnormal | [facility] [place] [facility] - | | | finding of lung field | [place] | + + + + | 2022-03-19 10:30:59 | Pneumonia, unspecified | [facility] [place] - | | | organism | [place] | + + + + | 2022-04-28 11:47:19 | Pneumonia, unspecified | [facility] [place] - | | | organism | [place] | + + + + | 2022-05-10 14:58 | Diarrhea | [facility] | + + + + | 2022-05-10 19:47:36 | Pneumonia, unspecified | [facility] | | | organism | | + + + + | 2022-07-02 07:13 | SPONDYLOSIS, UNSPECIFIED | [facility] | + + + + | 2022-10-03 00:00 | Laceration of hand | [facility] | + + + + Procedures [...] | | | | | | | [place], | | | | | | | [place] [address] Lab | | | | | | | Director: | | | | | | | Robert Flowers | | | | | | | Gideon Hernandez | | | | | | | Ph.D.; CHARISIA# | | | | | | | [id number] | + + + + + + [...] | | | [place] | | | [facility] | | | | | | | [facility] | | | | | | | - [place] | | | | | | | [place] | | | | | | | [address] | | | | | | | [address] | | | | | | | [address], | | | | | | | [place], | | | | | | | [place] [address] Lab | | | | | | | Director: | | | | | | | Robert Flowers | | | | | | | Gideon Hernandez | | | | | | | Ph.D.; SERGIO# | | | | | | | [id number] | + + + + + + [...] | | | | | | by Hernandez | | | | | | [...] | | | | | | - [place] | | | | | | | [place] | | | | | | | [address] | | | | | | | [address] | | | | | | | [address], | | | | | | | [place], | | | | | | | [place] [address] Lab | | | | | | | Director: | | | | | | | Robert Flowers | | | | | | | Gideon Hernandez | | | | | | | Ph.D.; CLIA# | | | | | | | [id number] | + + + + + + [...] + + | | 2022-01-13 | [facility] | 0.03 | (missing) | (missing) | [...] + + + + + + | NON-SITE INSPECTOR | 2022-03-12 | [facility] | | [...] + + + + + + | NON-SITE INSPECTOR | 2022-03-12 | [facility] | See Note: | (missing) | (missing) | | CYTOLOGY | 07:28 | Health | | | | | | | System - | | | | | | | [place] | | | | + + + + + + + | NON-SITE INSPECTOR | 2022-03-12 | [facility] | See [...] | | | | | | | [phone] | | | | | | | Visit #: | | | | | | | [id number] | | | | | | | [...] | | | | | | | [place] | | | | | | | Pathology | | | | | | | [facility], | | | | | | | [address] | | | | | | | [address] | | | | | | | [place], | | | | | | | [place] | | | | | | | [phone] | + + + + + + [...] | | | | | | | [phone] | | | + + + + [...] | | | [place] | | | [phone] | | | | | | | [...] | | | [place] | | | [phone] | | | | | | | [...] | | | [place] | | | [phone] | | | | | | | [...] | | | [place] | | | [phone] | | | | | | | [...] | | [place] | concentrated | | [phone] | | | | | smear | [...] | | | [place] | | | [phone] | | | | | | | [...] | | | [place] | | | [phone] | | | | | | | [...] | | | [place] | | | [phone] | | | | | | | [...] | | | [place] | | | [phone] | | | | | | | [...] | | | [place] | | | [phone] | | | | | | | [...] | | | [place] | | | [phone] | | | | | | | [...] 10:44:16 | Health | Respiratory | | [facility] | | | | System - | [facility] | | General | | | | [place] | | | [phone] | | | | | | | [...] | | [place] | pathogens | | [phone] | | | | | isolated. | [...] CT | | [place] | | | [phone] | | | | | | | [...] | | | [place] | | | [phone] | | | | | | | [...] | | | [place] | | | [phone] | | | | | | | [...] | | | [place] | | | [phone] | | | | | | | [...] | | | [place] | | | [phone] | | | | | | | [...] | | | [place] | | | [phone] | | | | | | | [...] | | | [place] | | | [phone] | | | | | | | [...] | | [place] | concentrated | | [phone] | | | | | smear | [...] | | | [place] | | | [phone] | | | | | | | | + + + + + + + | FUNGAL | 2022-03-12 | [facility] | No growth | (missing) | [facility] | | CULTURE | 10:47:11 | Health | at 1 week | | Gold | | | | System - | | | General | | | | [place] | | | [phone] | | | | | | | [...] | | | [place] | | | [phone] | | | | | | | | + + + + + + + | FUNGAL | 2022-03-12 | [facility] | No growth | (missing) | [facility] | | CULTURE | 10:47:11 | Health | at 2 weeks | | Gold | | | | System - | | | General | | | | [place] | | | [phone] | | | | | | | [...] | | | [place] | | | [phone] | | | | | | | | + + + + + + + | FUNGAL | 2022-03-12 | [facility] | No growth | (missing) | [facility] | | CULTURE | 10:47:11 | Health | at 3 weeks | | Gold | | | | System - | | | General | | | | [place] | | | [phone] | | | | | | | [...] | | | [place] | | | [phone] | | | | | | | | + + + + + + + | FUNGAL | 2022-03-12 | [facility] | No growth | (missing) | [facility] | | CULTURE | 10:47:11 | Health | at 4 weeks | | Gold | | | | System - | | | General | | | | [place] | | | [phone] | | | | | | | [...] | | | [place] | | | [phone] | | | | | | | [...] | | | [place] | | | [phone] | | | | | | | [...] | | | [place] | | | [phone] | | | | | | | [...] | | [place] | pathogens | | [phone] | | | | | isolated. | [...] [facility] | | [place] | | | [phone] | | S-[facility] | | | | [...] CT | | [place] | | | [phone] | | | | | | | [...] | | | [place] | | | [phone] | | | | | | | [...] | | | | | | | [phone] | | | + + + + [...] | | | [place] | | | [phone] | | | | | | | [...] | | | | | | | [employer] | | | | | | | [...]
[~2023-04-11 08:25] MED LIST changes: +CEPHALEXIN500 M1 PO
--- OUTSIDE RECORDS SUMMARY | 2023-04-11 08:28 | XMS ---
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 CARE PROVIDERS There are no care providers on record at this time. Shakira has no Care Guidelines for this patient. [place] VISIT COUNT (12 MO.) 3 AN[facility] TOTAL 4 NOTE: Visits indicate total known visits. 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 [place] [facility] TYPE: Emergency COMPLAINT: - NAUSEA DIAGNOSES: - Pneumonia, unspecified organism - Diarrhea - NAUSEA INPATIENT VISIT TRACKING (12 MO.) No inpatient visits to display in this time frame [email or web address]
[2023-04-11 08:46] LABS: BASOPHILS 0.6 % (0-2); EOSINOPHILS 0.4 % (0-6); HEMOGLOBIN 15.1 g/dL (12.0-18.0); LYMPHOCYTES 31.6 % (24-44); MCH 30.5 (27-36); MCHC 34.3 g/dl (30-36); MCV 89.1 fl (81-99); MONOCYTES 4.1 % (0-12); NEUTROPHILS 63.3 % (39-80); PLATELET COUNT 169 K/uL (140-440); RBC 4.94 M/ul (4.3-5.7); RDW 13.5 (10.5-15.0)
[2023-04-11 09:00] LABS: ALBUMIN 3.9 g/dL (3.4-5.0); ALBUMIN/GLOBULIN RATIO 1.22 (1.1-2.4); ANION GAP 14.6 (7-21); BILIRUBIN, TOTAL 0.6 ng/dL (0.2-1.0); BUN/CREATININE RATIO 17.88 (6.0-28.6); CREATININE, SERUM 1.23 mg/dL (0.70-1.30); POTASSIUM 3.6 mmol/L (3.5-5.1); PROTEIN, TOTAL 7.1 g/dL (6.4-8.2)
[2023-04-11 10:10] LABS: BILIRUBIN, URINE NEGATIVE (negative); BLOOD/HGB, URINE NEGATIVE (Negative); KETONE, URINE SMALL (Negative); LEUK ESTERASE, URINE NEGATIVE (negative); NITRITE, URINE NEGATIVE (negative)
[2023-04-11 10:37] LABS: INFLUENZA B NAA NEGATIVE (NEGATIVE); RESPIRATORY SYNCYTIAL VIR NAA NEGATIVE (NEGATIVE)
[2023-04-11] MEDS ORDERED: ONDANSETRON ODT8 MG PO (11:34)
[2023-04-11 12:25] VITALS: BP 131/75
== END 2023-04-11 12:26 | disposition home or self-care (01) ==
LOC: ED 08:25
PROVIDERS: Family Medicine
DX: A08.4 Viral intestinal infection, unspecified (principal); R51.9 Headache, unspecified; Z20.822 Contact with and (suspected) exposure to COVID-19; Z79.899 Other long term (current) drug therapy
CPT/HCPCS: 36415; 74177; 80053; 81003; 83735; 85025; 87502; 96361; 96375; 99284-25; J1790; J2270; J2405; J7030; Q9967; U0002

== ENCOUNTER 2023-06-11 17:32 | Emergency (ER) | payer MEDICARE, OTHER ==
[~2023-06-11] VITALS: Ht 185.4 cm; Wt 93.0 kg
[~2023-06-11 17:32] MED LIST changes: +ONDANSETRON ODT8 MG PO
--- OUTSIDE RECORDS SUMMARY | 2023-06-11 17:34 | XMS ---
PreManage Notification: JERMAINE RANKIN Security Expense Analyst Events No recent Security Events currently on file CRITERIA MET - [facility] CARE PROVIDERS There are no care providers on record at this time. Shakira has no Care Guidelines for this patient. [place] VISIT COUNT (12 MO.) 4 [facility] TOTAL 4 NOTE: Visits indicate total known visits. ED/C VISIT TRACKING (12 MO.) 06/11/2023 17:33 [facility] [place] TYPE: Emergency COMPLAINT: - VOMITING 04/11/2023 08:26 [facility] [place] TYPE: Emergency COMPLAINT: - NAUSEA, WEAKNESS DIAGNOSES: - Contact with and (suspected) exposure to COVID-19 - Headache, unspecified - Other watermelon inspector (current) drug therapy - Viral intestinal infection, unspecified - Vomiting, unspecified 10/05/2022 07:32 [facility] [place] TYPE: Emergency COMPLAINT: - WOUND CHECK 10/03/2022 10:33 [facility] [place] TYPE: Emergency COMPLAINT: - R HAND INJURY DIAGNOSES: - Contact with workbench tool, initial encounter - Encounter for immunization - Laceration of other specified muscles, fascia and tendons at wrist and hand level, right hand, initial encounter - Laceration without foreign body of right hand, initial encounter - Other watermelon inspector (current) drug therapy INPATIENT VISIT TRACKING (12 MO.) No inpatient visits to display in this time frame [id number]
[2023-06-11] MEDS ORDERED: METRONIDAZOLE500 MG PO (17:36)
[2023-06-11] MEDS ORDERED: TETRACYCLINE H500 MG PO (17:37)
[2023-06-11] MEDS ORDERED: ANTI-DIARR262 MG/15 PO (17:37)
[2023-06-11 18:19] LABS: BASOPHILS 0.3 % (0-2); EOSINOPHILS 0.4 % (0-6); HEMOGLOBIN 14.8 g/dL (12.0-18.0); LYMPHOCYTES 21.2 % (24-44); MCH 30.7 (27-36); MCHC 33.7 g/dl (30-36); MCV 91.2 fl (81-99); MONOCYTES 4.8 % (0-12); NEUTROPHILS 73.3 % (39-80); PLATELET COUNT 140 K/uL (140-440); RBC 4.83 M/ul (4.3-5.7); RDW 14.6 (10.5-15.0)
[2023-06-11 18:31] LABS: ALBUMIN 3.7 g/dL (3.4-5.0); ALBUMIN/GLOBULIN RATIO 1.23 (1.1-2.4); BILIRUBIN, TOTAL 0.7 ng/dL (0.2-1.0); BUN/CREATININE RATIO 16.21 (6.0-28.6); CALCIUM 8.9 mg/dL (8.5-10.1); CREATININE, SERUM 1.48 mg/dL (0.70-1.30); PROTEIN, TOTAL 6.7 g/dL (6.4-8.2)
[2023-06-11 20:38] LABS: INFLUENZA B NAA NEGATIVE (NEGATIVE); RESPIRATORY SYNCYTIAL VIR NAA NEGATIVE (NEGATIVE)
[2023-06-11] MEDS ORDERED: PROTONIX40 MG PO (21:16)
[2023-06-11] MEDS ORDERED: PROMETHAZINE HC25 M1 PO (21:16)
[2023-06-11 21:45] VITALS: BP 119/63
== END 2023-06-11 21:45 | disposition home or self-care (01) ==
LOC: ED 17:32
PROVIDERS: Emergency Medicine; Family Medicine
DX: K29.70 Gastritis, unspecified, without bleeding (principal); E86.0 Dehydration; T36.95XA Adverse effect of unspecified systemic antibiotic, initial encounter; Z20.822 Contact with and (suspected) exposure to COVID-19; X58.XXXA Exposure to other specified factors, initial encounter; Z79.899 Other long term (current) drug therapy
CPT/HCPCS: 36415; 80053; 81001; 83735; 85025; 87502; 96374; 99284-25; C9803; J2405; J7030; U0002

== ENCOUNTER 2023-06-13 20:24 | Inpatient (IN) | payer MEDICARE, OTHER ==
[~2023-06-13] VITALS: Ht 185.4 cm; Wt 93.0 kg
[~2023-06-13 20:24] MED LIST changes: +ANTI-DIARR262 MG/15 PO; +METRONIDAZOLE500 MG PO; +PROMETHAZINE HC25 M1 PO; +PROTONIX40 MG PO; +TETRACYCLINE H500 MG PO
--- OUTSIDE RECORDS SUMMARY | 2023-06-13 20:27 | XMS ---
PreManage Notification: JERMAINE RANKIN Security Dust Collector Events No recent Security Events currently on file CRITERIA MET - [facility] - [facility] - 2 Visits in 30 Days CARE PROVIDERS There are no care providers on record at this time. Shakira has no Care Guidelines for this patient. [place] VISIT COUNT (12 MO[address] 5 [facility] TOTAL 5 NOTE: Visits indicate total known visits. ED/C VISIT TRACKING (12 MO.) [facility] [place] [facility] COMPLAINT: - ABDOMINAL PAIN 06/11/2023 17:33 [facility] [place] TYPE: Emergency COMPLAINT: - VOMITING DIAGNOSES: - Adverse effect of unspecified systemic antibiotic, initial encounter - Contact with and (suspected) exposure to COVID-19 - Dehydration - Epigastric pain - Exposure to other specified factors, initial encounter - Gastritis, unspecified, without bleeding - Other terminal worker (current) drug therapy 04/11/2023 08:26 [facility] [place] TYPE: Emergency COMPLAINT: - NAUSEA, WEAKNESS DIAGNOSES: - Contact with and (suspected) exposure to COVID-19 - Headache, unspecified - Other care home (current) drug therapy - Viral intestinal infection, unspecified - Vomiting, unspecified 10/05/2022 07:32 [facility] [place] TYPE: Emergency COMPLAINT: - WOUND CHECK 10/03/2022 10:[address] [facility] [place] TYPE: Emergency COMPLAINT: - R HAND INJURY DIAGNOSES: - Contact with workbench tool, initial encounter - Encounter for immunization - Laceration of other specified muscles, fascia and tendons at wrist and hand level, right hand, initial encounter - Laceration without foreign body of right hand, initial encounter - Other care home (current) drug therapy INPATIENT VISIT TRACKING (12 MO.) No inpatient visits to display in this time frame [email or web address]
[2023-06-13 20:45] LABS: BASOPHILS 0.4 % (0-2); HEMATOCRIT 46.9 % (35.0-50.0); LYMPHOCYTES 27.3 % (24-44); MCHC 34.1 g/dl (30-36); MCV 90.9 fl (81-99); MONOCYTES 8.3 % (0-12); PLATELET COUNT 143 K/uL (140-440); RBC 5.16 M/ul (4.3-5.7); RDW 14.6 (10.5-15.0)
[2023-06-13 20:55] LABS: ALBUMIN 4.2 g/dL (3.4-5.0); ALBUMIN/GLOBULIN RATIO 1.4 (1.1-2.4); ANION GAP 13.6 (7-21); BILIRUBIN, TOTAL 0.7 ng/dL (0.2-1.0); BUN/CREATININE RATIO 14.64 (6.0-28.6); CALCIUM 9.2 mg/dL (8.5-10.1); CREATININE, SERUM 1.57 mg/dL (0.70-1.30); POTASSIUM 3.6 mmol/L (3.5-5.1); PROTEIN, TOTAL 7.2 g/dL (6.4-8.2)
[2023-06-13 22:49] LABS: BILIRUBIN, URINE NEGATIVE (negative); BLOOD/HGB, URINE NEGATIVE (Negative); KETONE, URINE NEGATIVE (Negative); LEUK ESTERASE, URINE NEGATIVE (negative); NITRITE, URINE NEGATIVE (negative); PH, URINE 6.5 (5-7)
--- NOTE | 2023-06-13 23:34 | NUR ---
bedside report received from ed rn shahram stevens brought to floor from ed by ed rn. pt awake and orineted to room and poc, call light in reach. cupola charger remains in room to complete admission.
[2023-06-13 23:38] VITALS: BP 174/81
[2023-06-13 23:51] LABS: INFLUENZA B NAA NEGATIVE (NEGATIVE); RESPIRATORY SYNCYTIAL VIR NAA NEGATIVE (NEGATIVE)
--- NOTE | 2023-06-14 00:20 | NUR ---
pt went to bathroom sba and voided 300mls dark yellow urine. back in bed, steady on feet. pt asking for ice chips, educated pt is strictly npo for now, mouth swabs at bedside. iv fluids infusing as directed, iv site wnl. assessment complete. call light in reach. hearing aids in seperate denture cups, labeled with pt sticker.
--- NOTE | 2023-06-14 01:25 | NUR ---
rounded on pt, pt resting quietly in bed with eyes closed. on ra, rr even and unlabored. no distress noted. call light in reach.
--- NOTE | 2023-06-14 01:59 | NUR ---
call light answered, pt reports 7/10 abd pain-prn pain medication given, see emar. pt asking about his nausea medication, not yet available. pt reports nausea increases w/ pain. pt educated on available nausea medication, alt measures used-deep breathing, cool rag to forehead and pt smelled alcohol swabs, reports this does help he thinks. focused assessment unchanged, call light in reach.
--- NOTE | 2023-06-14 02:42 | NUR ---
pt REPORTS ABD PAIN REMAINS, SOMEWHAT IMPROVES BUT STILL REPROTS INTOLERABLE, GRIMACING NOTED. TELEPHONE ORDER READ BACK FROM DR ROMANO FOR ONE TIME ORDER OF 0.5MG IV DILAUDID FOR NOW. MEDICATION GIVEN-SEE EMAR.
--- NOTE | 2023-06-14 03:30 | NUR ---
rounded on pt, pt remains on ra, rr even and unalbored. no distress noted. pt appears much more relaxed and comfortable. call light in reach.
[2023-06-14 04:38] VITALS: BP 137/84
--- NOTE | 2023-06-14 04:53 | NUR ---
rounded on pt, pt resting quietly in bed. on ra, rr even and unlabored. no distress noted. iv site wnl, fluids infusing as directed. pt deneis additional needs or concerns, call light in reach and urinal emptied. iv pump also cleared.
--- NOTE | 2023-06-14 06:12 | NUR ---
prn pain and nausea medication given, see emar. pt reprots pain 4/10 in abd when still, increases with movement. iv site wnl, fluids contineu to infuse as directed. call light in reach and cpox in place for safety, PT remains wnl on ra. rr even and unlabored.
--- NOTE | 2023-06-14 07:32 | NUR ---
PT AWAKE AND AND INTERACTIVE AT TIME OF SHIFT REPORT. WARM WASH CLOTH AND PERSONAL CARE ITEMS PROVIDED. AGREES HE IS COMFORTABLE AT THIS TIME DENIES OTHER REQUESTS. CALL LIGHT AND NEEDED ITEMS IN REACH.
--- NOTE | 2023-06-14 09:06 | NUR ---
PT CONTINUES RESTING IN BED AT THIS TIME. INDICATES HE WANTS TO "STAY AHEAD OF THE PAIN" PRNS AND TIMING DISCUSSED. PT VERBALIZES UNDERSTANDING, NEXT MED TIME WRITTEN ON WHITE BOARD.
[2023-06-14 09:08] VITALS: BP 138/77
--- NOTE | 2023-06-14 09:44 | NUR ---
NO EMESIS THIS SHIFT. PT DOES STATE HE IS A LITTLE NAUSEATED "ALL THE TIME" HOWEVER. RESTING EYES CLOSED CURRENTLY CALL LIGHT IN REACH
--- NOTE | 2023-06-14 10:34 | NUR ---
PATIENT IN BED, VITALS AND I/O'S COMPLETED. PATIENT HAS NO OTHER REQUESTS AT THIS TIME. CALL LIGHT WITHIN REACH.
--- NOTE | 2023-06-14 10:48 | NUR ---
PT CONTINUES RESTING IN BED. PRESENT BRINGS PERSONAL CARE ITEMS. NEEDS DENIED
--- NOTE | 2023-06-14 11:51 | NUR ---
DR OGDEN IN TO SEE PT, HIS IS PRESENT. PLAN OF CARE DISCUSSED AT LENGTH PT AND HAD SEVERAL QUESTIONS. ALL WERE ANSWERED. PT TO ADVANCE TO CLEAR LIQUIDS.
[2023-06-14 12:58] VITALS: BP 131/66
[2023-06-14 12:58] LABS: CHOLESTEROL/HDL RATIO 2.8
[2023-06-14] MEDS ORDERED: LOSARTAN POTAS100 MG PO (13:36)
--- NOTE | 2023-06-14 14:11 | NUR ---
PT RESTING EYES CLOSED, LEFT UNDISTURBED. CALL LIGHT AND H20 AT BEDSIDE
--- NOTE | 2023-06-14 15:06 | NUR ---
PT RATES PAIN 2/10 STATES HE'S FEELING "MUCH BETTER" THIS SHIFT. HE HAD WANTED PAIN MED Q2 AT START OF SHIFT, FEARING HE'D GET BEHIND, WILL BE STRETCHING IT OUT FARTHER HE SEEMS WELL IMPROVED. CLEAR LIQUIDS PROVIDED AT NOON TIME, PT HAS SIPS ONLY AND HAS DONE WELL. IS PRESENT IN THE ROOM
--- NOTE | 2023-06-14 15:45 | NUR ---
RECORDS RECEIVED FROM [facility] IN [place]. RECORDS PLACED ON PTS PAPER CHART.
--- NOTE | 2023-06-14 17:33 | NUR ---
PT AWAKENS TO NOISE AGREES HE WANTS PAIN MEDICATION AT THIS TIME. AGREES HE STILL HAS SOME NAUSEA, WELL BUT NO EMESIS OR WRETCHING. REFUSES ANY CLEAR LIQUIDS TAKING SIPS OF H20 ONLY. RETURNS TO RESTING EYES CLOSED
[2023-06-14 17:56] VITALS: BP 135/85
--- NOTE | 2023-06-14 17:56 | NUR ---
IN WITH PT FOR VS AND I/O. PT'S PRIMARY NURSE IN WITH PT. PT'S DINNER TRAY AT BEDSIDE; HOWEVER, HE HAS NOT FELT LIKE DRINKING ANY OF IT. CALL LIGHT IN REACH. DENIES FURTHER NEEDS AT THIS TIME.
--- NOTE | 2023-06-14 19:30 | NUR ---
REPORT RECEIVED FROM DAY SHIFT RN. PT RESTING IN BED. SAFETY PRECAUTIONS MAINTAINED. CALL LIGHT WITHIN REACH. WILL CONTINUE TO MONITOR.
[2023-06-14 20:44] VITALS: BP 161/74
--- NOTE | 2023-06-14 20:54 | NUR ---
PT ASSESSED AND MEDICATIONS GIVEN. IVF INFUSING PER ORDER. PT UP INDEPENDENTLY. GOOD OUTPUT NOTED. PAIN TREATED WITH IV DILAUDID. SAFETY PRECAUTIONS MAINTAINED. CALL LIGHT WITHIN [facility]. WILL CONTINUE TO MONITOR.
[2023-06-15 05:20] VITALS: BP 133/58
[2023-06-15 05:54] LABS: BASOPHILS 0.2 % (0-2); EOSINOPHILS 1.8 % (0-6); HEMATOCRIT 40.5 % (35.0-50.0); HEMOGLOBIN 14.2 g/dL (12.0-18.0); LYMPHOCYTES 24.5 % (24-44); MCH 31.1 (27-36); MCV 88.8 fl (81-99); NEUTROPHILS 63.5 % (39-80); PLATELET COUNT 116 K/uL (140-440); RBC 4.56 M/ul (4.3-5.7); RDW 14.1 (10.5-15.0)
--- NOTE | 2023-06-15 06:02 | NUR ---
PT RESTED WELL DURING THE SHIFT. IVF INFUSING PER ORDER. PT UP INDEPENDENTLY. PT VOIDING ADEQUETLY. VSS. PAIN MANAGED WITH DILAUDID. ZOFRAN GIVEN FOR NAUSEA. PT ABLE TO DRINK SMALL AMOUNTS OF FLUIDS DURING THE SHIFT. SAFETY PRECAUTIONS MAINTAINED. CALL LIGHT WITHIN REACH. WILL CONTINUE TO MONITOR.
[2023-06-15 06:03] LABS: ALBUMIN/GLOBULIN RATIO 1.11 (1.1-2.4); ANION GAP 9.8 (7-21); BILIRUBIN, TOTAL 0.7 ng/dL (0.2-1.0); BUN/CREATININE RATIO 12.5 (6.0-28.6); CALCIUM 8.5 mg/dL (8.5-10.1); CREATININE, SERUM 1.04 mg/dL (0.70-1.30); POTASSIUM 3.8 mmol/L (3.5-5.1); PROTEIN, TOTAL 5.7 g/dL (6.4-8.2)
--- NOTE | 2023-06-15 07:35 | NUR ---
PT AWAKE AND INTERACTIVE AT TIME OF SHIFT REPORT. NO C/O PAIN OR NAUSEA RESTING IN BED READING.
--- NOTE | 2023-06-15 08:27 | NUR ---
PT CONTINUES RESTING IN BED AGREES HE WILL SHOWER THIS SHIFT, BUT WANTS TO WAIT FOR HIS . RATES HIS PAIN 11/07 4 BEING THE GOAL. PT ASKS REPEATEDLY HOW LONG SINCE HIS LAST PAIN MED, FOCUSED ON THE TIME BETWEEN TREATMENT OPPOSED TO THE LEVEL OF PAIN. DISCUSSED SIDE EFFECTS OF PAIN MEDS AND SUGGESTED PT REQUEST MED PAIN INCREASES INSTEAD OF AT REGULAR INTERVALS. UNDERSTANDING VERBALIZED.
[2023-06-15 10:04] VITALS: BP 132/69
--- NOTE | 2023-06-15 10:15 | NUR ---
PT READY FOR SHOWER. IV PUMP PLACED IN STANDBY. IV SITE COVERED. PT INDEPENDENT IN ROOM AND EDUCATED TO USE CALL LIGHT IF HELP NEEDED.
--- NOTE | 2023-06-15 10:17 | NUR ---
PT TO THE SHOWER INDEPENDANTLY DENIES NEED OF ASSIST. IS PRESENT IN THE ROOM AT THIS TIME. LINENS CHANGED PRIOR TO SHIFT CHANGE. PT HAS PERSONAL CARE ITEMS AND IS DOING IS OWN CARE.
--- NOTE | 2023-06-15 10:46 | NUR ---
medications reconciled
--- NOTE | 2023-06-15 11:19 | NUR ---
UR NOTE: PATIENT MET PANCREATITIS (ISC) INPATIENT 06/15/23 1128
--- NOTE | 2023-06-15 12:43 | NUR ---
PT C/O ABDOMINAL PAIN 12/08 DILAUDID ADMINISTERED PER REQUEST
--- NOTE | 2023-06-15 14:05 | NUR ---
PT DECLINED VISIT STATING HE WAS PRESBYTERIAN AND HAD GOOD SUPPORT WHO HAD ALREADY VISITED. DECLINED BEDSIDE PRAYER. PRAYED SILENTLY FOR HEALING AND DEFINITIVE DIAGNOSIS FROM OUTSIDE ROOM.
[2023-06-15 14:23] VITALS: BP 151/78
--- NOTE | 2023-06-15 15:23 | NUR ---
U/S COMPLETE WELL TOLERATED. PT IS ASKING FOR FOOD, WAITING TO HEAR FROM THE DOCTOR. NO C/O OF PAIN AT THIS TIME, PRESENT IN THE ROOM.
--- NOTE | 2023-06-15 16:34 | NUR ---
DR DOAN GIVES PERMISSION FOR ADVANCE DIET TOLERATED. PT HAS CHICKEN NOODLE SOUP FROM HOME AND JELLO. DENIES NAUSEA OR INCREASED PAIN. RESTING IN BED NOW DENIES NEED OF ANYTHING
--- NOTE | 2023-06-15 17:54 | NUR ---
PT AMBULATES THE MAGDALENO REQUESTED, CONTINUES TO AGREE HE FEELS WELL. NO C/O NAUSEA OR PAIN. RESTING IN BED NOW DENIES NEEDS OF
[2023-06-15 18:33] VITALS: BP 154/73
--- NOTE | 2023-06-15 19:33 | NUR ---
REPORT RECEIVED FROM DAY SHIFT RN. PT RESTING IN BED. SAFETY PRECAUTIONS MAINTAINED. CALL LIGHT WITHIN REACH. WILL CONTINUE TO MONITOR.
[2023-06-15 20:59] VITALS: BP 117/66
--- NOTE | 2023-06-15 21:02 | NUR ---
PT ASSESSED AND MEDICATIONS GIVEN. VSS. PT UP INDEPENDENTLY IN ROOM. GOOD OUTPUT NOTED. IVF INFUSING PER ORDER. SAFETY PRECAUTIONS MAINTAINED. CALL LIGHT WITHIN REACH. WILL CONTINUE TO MONITOR.
[2023-06-16 05:15] VITALS: BP 139/61
--- NOTE | 2023-06-16 06:00 | NUR ---
PT RESTED SOME THROGHOUT THE SHIFT. PT MORE RESTLESS AND HAD A HARD TIME SLEEPING. PT STATED THAT THEIR PAIN WAS FELT MORE THIS SHIFT THAN DURIN GPREVIOUS SHIFTS. PAIN TREATED WITH IV DILAUDID. IVF INFUSING PER ORDER. GOOD OUTPUT NOTED. VSS. PT UP INDEPENDENTLY. SAFETY PRECAUTIONS MAINTAINED. CALL LIGHT WITHIN REACH. WILL CONTINUE TO MONITOR.
[2023-06-16 06:13] LABS: BASOPHILS 0.3 % (0-2); EOSINOPHILS 3.2 % (0-6); HEMOGLOBIN 13.2 g/dL (12.0-18.0); LYMPHOCYTES 27.4 % (24-44); MCH 30.8 (27-36); MCHC 34.7 g/dl (30-36); MCV 88.7 fl (81-99); MONOCYTES 10.8 % (0-12); NEUTROPHILS 58.3 % (39-80); PLATELET COUNT 108 K/uL (140-440); RBC 4.29 M/ul (4.3-5.7); RDW 14.3 (10.5-15.0)
[2023-06-16 06:32] LABS: ALBUMIN 2.7 g/dL (3.4-5.0); ALBUMIN/GLOBULIN RATIO 1.08 (1.1-2.4); ANION GAP 10.6 (7-21); BILIRUBIN, TOTAL 0.6 ng/dL (0.2-1.0); BUN/CREATININE RATIO 7.14 (6.0-28.6); CALCIUM 8.5 mg/dL (8.5-10.1); CREATININE, SERUM 1.12 mg/dL (0.70-1.30); POTASSIUM 3.6 mmol/L (3.5-5.1); PROTEIN, TOTAL 5.2 g/dL (6.4-8.2)
--- NOTE | 2023-06-16 07:25 | NUR ---
REPORT RECEIVED FROM NATHANAEL NUÑEZ. PT RESTING IN BED WITH EYES CLOSED, RESPIRATION EVEN AND UNLABORED. BED RAILS UP. CALL LIGHT WITHIN REACH. PT ALLOWED TO REST.
--- NOTE | 2023-06-16 08:44 | NUR ---
MORNING ASSESSMENT AND MEDICATION DUE. PT AWAKE AND ALERT. PT REPORTS HE DID NO SLEEP WELL LAST NIGHT BECAUSE THE "PAIN CAME BACK WITH A VENGENCE." PT EDUCATION DONE REGARDING DIET AND THE PANCREAS. PT STATES HE HAD EGGS AND SAUSAGE FOR BREAKFAST. PT STATES PAIN RADIATES AT TIME TO HIS LOWER BACK. PT CONTINUES TO STATES "I NEED AN EXPLANATION FOR ALL OF THIS." PT ALERT AND OREINTED TO ALL. HEART TONES REGULAR . LUNG SOUNDS CLAER. ABDOMEN SOFT. PT REPORTS MILD ABDOMINAL DISTENTION. PT DENIES NAUSEA AND STATES THIS HAS BEEN RESOLVED FOR A FULL DAY NOW. PT REPORTS HEART BURN HAS IMPROVED. EXTENSIVE EDUCATION DONE WITH PT REGARDING PLAN OF CARE, HEART BURN, H PYLORI, AND PANCREATITIS. PT VERBALZIES UNDERSTANDING AND CONTINUES TO STATES "I'M NOT LEAVING HERE UNTIL I GET AN EXPLANATION FOR ALL THIS." PT ALSO STATES "YOU'VE BEEN VERY INFORMATIVE." PT REMAINS STEADY ON FEET AND INDEPENDANT IN ROOM. NO ADDITIONAL REQUESTS OR COMPLAINTS. CALL LIGHT WITHIN REACH. BED RAILS UP.
--- NOTE | 2023-06-16 09:36 | NUR ---
PT DECLINED VISIT. PRAYED SILENTLY FOR ONGOING HEALING AND ABIDING PEACE.
--- NOTE | 2023-06-16 09:43 | NUR ---
THIS RN TO ROOM WITH DR. DOAN FOR ROUNDS. PT AND PTS UPDATED ON STATUS, PLAN OF CARE, AND PLAN FOR DISCHARGE. EXTENSIVE TIME SPENT WITH PT BY DR. DOAN WITH UPDATES. PT STATES ALL HIS QUESTIONS HAVE BEEN ANSWERED. NO ADDITIONAL NEEDS AT THIS TIME. CALL LIGHT WITHIN REACH. BED RAILS UP. PTS AT BEDSIDE.
[2023-06-16 10:25] VITALS: BP 131/71
--- NOTE | 2023-06-16 10:32 | NUR ---
THIS RN TO ROOM TO CHECK ON PT. IV PUMP ALARMING, IV FLUID BAG COMPLETE. IV FLUSHED AND SALINE LOCKED PER MD ORDER. ALCOHOL CAP APPLIED. PT ENCORUAGED TO AMBULATE ABLE, REMAINS STEADY ON FEET WITH NO ASSISTANCE NEEDED. PT REPORTS PAIN IS "MUCH BETER" NOW 09/09. PT STATES BACK PAIN HAS RESOLVED. LOW FAT MENU PROVIDED PER PT REQUEST. NO ADDITIONAL REQUESTS OR COMPLAINTS. CALL LIGHT WITHIN REACH. BED RAILS UP.
--- NOTE | 2023-06-16 11:16 | NUR ---
THIS RN TO ROOM TO CHECK ON PT RESTING ON RIGHT SIDE WITH EYES CLOSED, RESPIATIONS EVEN AND UNLABORED. DR DOAN TO BEDSIDE WITH UPDATE, PT AWAKENS TO VOICE. PT UPDATED ON PLAN OF CARE AND VERBALIZES UNDERSTANDING. NO ADDITONAL REQUESTS OR COMPLAINTS. PT RETURNS TO RESTING WITH EYES CLOSED. CALL LIGHT WITHIN REACH. BED RAILS UP. PTS AT BEDSIDE.
--- NOTE | 2023-06-16 12:30 | NUR ---
LUNCH DELIVERED TO PT. PT SITTING ON EDGE OF BED TO EAT MASHED POTATOES AND FRUIT. PT REPORTS 1/10 PAIN THAT IS WELL CONTROLLED. PT DENIES NAUSEA. NO ADDITIONAL REQUESTS OR COMPLAINTS. CALL LIGHT WITHIN REACH. BED RAILS UP. PTS AT BEDSIDE.
--- NOTE | 2023-06-16 12:52 | NUR ---
PT CALL LIGHT ON. PT REQUESTS PAIN MEDICAITON FOR 4/10 PAIN IN RIGHT UPPER QUADRANT AFTER EATING LUNCH. PT REPORTS PAIN IS NOT RADIATING TO HIS BACK AT THIS TIME "JUST PRESSURE IN MY STOMACH." SEE MAR FOR MEDICATION GIVEN. PT DENIES NAUSEA. NO ADDITIONAL REQUESTS OR COMPLAINTS. CALL LIGHT WITHIN REACH. BED RAILS UP.
--- NOTE | 2023-06-16 13:26 | NUR ---
UR NOTE [facility] 06/15 MET CARE DAY 2 06/16 VARIANCE FOR CARE DAY 3
--- NOTE | 2023-06-16 13:30 | NUR ---
UPDATE GIVEN TO NATHANAEL CABRERA. THIS RN AND NATHANAEL CABRERA CONTINUE CARE OF PT.
[2023-06-16 13:59] VITALS: BP 128/66
--- NOTE | 2023-06-16 14:28 | NUR ---
AFTERNOON ASSESSMENT DUE. PT LYING IN BED AWAKE AND ALERT. IV SITE PATENT AND FLUSHED, SALINE LOCKED. PT REPORTS HAVING SOME "POSSIBLE NAUSEA COMING ON" AND IS REQUESTING NAUSEA MEDICATION, PROVIDER NOTIFIED, NEW ORDER PLACED (SEE EMAR) AND REPEAT BACK PERFORMED. PT REPORTS ABDOMEN IS FEELING "A LITTLE PUFFY AND DISTENDED" BUT STATES IT IS UNCHANGED FROM THIS MORNING. PT REPORTS 2/10 PAIN IN HIS ABDOMEN AND STATES LLQ IS TENDER TO TOUCH. NAUSEA MEDICATION GIVEN PER ORDER (SEE EMAR). PT EDUCATED ON PLAN OF CARE AND VERBALIZES UNDERSTANDING. PT REPORTS NO FURTHER NEEDS AT THIS TIME, CALL LIGHT WITHIN REACH, BED RAILS UP.
--- NOTE | 2023-06-16 15:20 | NUR ---
PT RESTING IN BED WITH EYES CLOSED, RR 16 WITH EVEN AND UNLABORED BREATHING. CALL LIGHT WITHIN REACH, BED RAILS UP.
--- NOTE | 2023-06-16 15:20 | NUR ---
Spoke with pt and his . He is resting in bed, belching. States he now is taking po, and this is causing him to not feel well. States he feels flushed. He has a vomit bag beside him in bed "just in case". Denies needs.
--- NOTE | 2023-06-16 15:54 | NUR ---
Patient began treatment for H pylori infection 06/05/23. Before therapy was completed, he was admitted for acute pancreatitis. Antibiotic therapy was discontinued on admittance due to the possibility of being causitive agents for inducing pancreatitis
--- NOTE | 2023-06-16 16:15 | NUR ---
PT'S PRESSED CALL LIGHT, THIS RN TO BEDSIDE. PT THROWING UP INTO EMESIS BAG. EMESIS YELLOW. PT'S STATES "THEY WANT HIM TO GO HOME TOMORROW, BUT I AM NOT OKAY WITH THAT PLAN IF HE IS LIKE THIS". PT REQUESTED A COOL CLOTH FOR HIS FOREHEAD, PROVIDED. EDUCATED PROVIDED ON DISEASE PROCESS WELL DIET ADVANCEMENT TODAY. PT VERBALIZES UNDERSTANDING. PT STATES PAIN REMAINS AT 2/10 AND DENIES NEED FOR PAIN MEDICATION, ABDOMEN SOFT AND TENDER IN LLQ. MD CONSULTED, NEW ORDERS GIVEN, ORDERS ENTERED, REPEAT BACK PERFORMED. FOOD REMOVED FROM BEDSIDE, CLEAR LIQUIDS PROVIDED. PT UPDATED ON PLAN OF CARE, PT AND VERBALIZE UNDERSTANDING AND STATE ALL QUESTIONS HAVE BEEN ANSWERED AT THIS TIME. CALL LIGHT WITHIN REACH, BED RAILS UP, AT THE BEDSIDE.
--- NOTE | 2023-06-16 16:56 | NUR ---
PT HERE FOR ACUTE PANCREATITIS. INDEPENDENT IN ROOM, STEADY ON FEET, A+O TO ALL. PT NOT TOLERATING REGULAR DIET, INCREASED NAUSEA THIS AFTERNOON UNRESOLVED BY NAUSEA MEDICATIONS. MD NOTIFIED AND REGRESSED TO CLEAR LIQUID DIET. MILD ABDOMINAL DISTENTION PER PT. ABDOMEN SOFT, TENDER IN LLQ TO TOUCH, PRN PAIN MEDICATIONS GIVEN. PT SWITCHED TO PO MEDICATION THIS SHIFT. AT BEDSIDE THROUGHOUT SHIFT, EXTENSIVE EDUCATION ON DISEASE PROCESS PROVIDED. PT VOIDING QUANTITY SUFFICIENT, PT USES CALL LIGHT AND MAKES NEEDS KNOWN.
--- NOTE | 2023-06-16 17:41 | NUR ---
HOURLY ROUNDING. PT LYING IN BED WITH EYES CLOSED, AWAKENS TO THIS RN ENTERING THE ROOM. PT REPORTS NAUSEA AND STATES "IT FEELS LIKE IM GOING TO VOMIT AGAIN". MD NOTIFIED, NEW ORDERS GIVEN, ORDERS PLACED, REPEAT BACK PERFORMED. PT UPDATED ON PLAN OF CARE, VERBALIZES UNDERSTANDING. PT STATES PAIN IS UNCHANGED AT THIS TIME. MEDICATION GIVEN FOR NAUSEA. PT STATES NO FURTHER NEEDS AT THIS TIME, CALL LIGHT WITHIN REACH, BED RAILS UP.
[2023-06-16 17:55] VITALS: BP 147/77
--- NOTE | 2023-06-16 18:02 | NUR ---
PT DRY HEAVES WHILE THIS RN IN ROOM. IVF RESTARTED PER ORDER (SEE EMAR). PT REPORTS HE HAS HAD A "25 POUND WEIGHT LOSS IN THE LAST 8 WEEKS". PT REPORTS HE HAS BEEN EXPERIENCING PREDICTABLE CYCLES OF VOMITING WITH EACH CYCLE LASTING APPROXIMATELY 8 DAYS. PT STATES HE WOULD BE VOMITING FOR 2-3 DAYS AND THEN HAVE A DAY OF "FEELING BETTER" BEFORE THE CYCLE WOULD REPEAT ITSELF. PT STATES THE PHASES OF VOMITING HAVE BECOME CLOSER TOGETHER AND "MORE FREQUENT" OVER THE LAST 2-3 WEEKS. PT REPORTS BMs HAVE BEEN NORMAL DURING THIS TIME, APPROXIMATELY DAILY. NOTED PT HAS NOT HAD A BM DURING THIS HOSPITAL STAY. PT DENIES FEELINGS OF CONSTIPATION. PT REPORTS 1/10 MID LEFT ABDOMINAL PAIN. ABDOMEN REMAINS SOFT, REMAINS TENDER TO TOUCH. BOWEL TONES RARE ON LEFT SIDE, HYPOACTIVE ON RIGHT SIDE. DRY HEAVES STOP 10-15 MINUTES AFTER NAUSEA MEDICATION ADMINISTRATION (SEE LAST RN NOTE AND EMAR). VSS. PT RETURNS TO RESTING ON R SIDE HOB 27 DEGREES, CALL LIGHT WITHIN REACH, BED RAILS UP, PT STATES NO FURTHER NEEDS AT THIS TIME.
--- NOTE | 2023-06-16 18:29 | NUR ---
DR DOAN CALLED AND UPDATED ON PT STATUS AND ASSESSMENT. NEW ORDERS PLACED BY DR. DOAN. DR. DOAN STATES HE WILL COME TO SEE PT.
--- NOTE | 2023-06-16 18:47 | NUR ---
THIS RN TO ROOM WITH DR. DOAN FOR ROUNDS. PT UPDATED ON NEW ORDERS AND PLAN OF CARE. PT MADE NPO AT THIS TIME PER MD ORDER. X-RAY TO BEDSIDE FOR IMAGING. NO ADDITIONAL NEW ORDERS AT THIS TIME. PT VERBALIZES UNDERSTANDING OF PLAN OF CARE. PT RETURNS TO RESTING WITH EYES CLOSED. RESPIRATIONS EVEN AND UNLABORED. BED RAILS UP. CALL LIGHT WITHIN REACH.
--- NOTE | 2023-06-16 19:26 | NUR ---
REPORT RECEIVED FROM NATHANAEL ZENG. pt RESTING IN BED, NO DISTRESS NOTED. LIGHTS OFF IN ROOM.
[2023-06-16 21:03] VITALS: BP 130/58
--- NOTE | 2023-06-16 21:12 | NUR ---
pt SLEEPING, AWAKENS TO VOICE. ASSESSMENT COMPLETE. ABDOMEN DISTENDED, TENDER WITH PALPATION. BOWEL TONES HYPOACTIVE. pt DENIES PAIN. DENIES NAUSEA. IVF INFUSING WNL. CALL LIGHT IN REACH.
--- NOTE | 2023-06-16 23:00 | NUR ---
CALL LIGHT ANSWERED. pt PROVIDED WITH MORE COVERS. NO ADDITIONAL REQUESTS.
--- NOTE | 2023-06-17 00:51 | NUR ---
CALL LIGHT ANSWERED. pt COMPLAINS OF 6/10 PAIN IN ABDOMEN. BOWEL TONES ACTIVE X 4, ABD SOFT, GUARDED WITH PALPATION, ABD DISTENDED. PRN PAIN MEDICATION ADMINISTERED. IVF INFUSING WNL. CALL LIGHT IN REACH.
--- NOTE | 2023-06-17 01:15 | NUR ---
CALL LIGHT ANSWERED, pt WANTING HELP WITH HIS GOWN, THIS RN IN ROOM TO ASSIST AND FOUND pt AWAKE AND SITTING ON EDGE OF BED, NEW GOWN IN PLACE. pt REPORTS HE HAD AN OLD EMESIS SPOT ON GOWN AND NEEDED HELP SNAPPING HIS NEW ONE IN PLACE, ASSISTANCE PROVIDED. HAT ALSO EMPTIED WITH 1,000 MLS OUTPUT, pt REPORTS THIS INCLUDES "MY LAST TWO VOIDS". NO FURTHER NEEDS, CALL LIGHT IN REACH. PRIMARY RN LAST UPDATED AND AWARE.
--- NOTE | 2023-06-17 02:46 | NUR ---
CHECKED ON pt. pt RESTING ON RIGHT SIDE, BREATHING EQUAL AND UNLABORED. NO DISTRESS NOTED. LIGHTS OFF IN ROOM.
--- NOTE | 2023-06-17 03:57 | NUR ---
call light answered, pt reports pain 4/10 at rest and requesting pain medication-see emar. iv site wnl pre and post pain medication administration, iv fluids infusing wnl. no additional needs or concerns, call light in reach.
[2023-06-17 04:51] VITALS: BP 134/69
--- NOTE | 2023-06-17 04:57 | NUR ---
CALL LIGHT ANSWERED. pt STATES EMESIS CAME OUT OF NO WHERE. 100 ML GREEN/YELLOW EMESIS IN BAG. NEW EMESIS BAG PROVIDED. COOL WASH CLOTH PROVIDED. PRN ANTIEMETIC ADMINISTERED. VSS. CALL LIGHT IN REACH. pt DENIES ADDITIONAL NEEDS.
--- NOTE | 2023-06-17 05:25 | NUR ---
CALL LIGHT ANSWERED. pt REPORTS EMESIS AFTER UP TO RESTROOM. SMALL AMT EMESIS IN BAG, pt STATES "I HEAVED AND SPIT AT LITTLE". DENIES PAIN. IVF INFUSING WNL. URINE EMPTIED FROM HAT. CALL LIGHT IN REACH.
[2023-06-17 05:26] LABS: BASOPHILS 0.3 % (0-2); EOSINOPHILS 3.4 % (0-6); HEMATOCRIT 38.9 % (35.0-50.0); HEMOGLOBIN 13.2 g/dL (12.0-18.0); LYMPHOCYTES 28.3 % (24-44); MCH 30.6 (27-36); PLATELET COUNT 109 K/uL (140-440); RBC 4.32 M/ul (4.3-5.7); RDW 14.1 (10.5-15.0)
[2023-06-17 05:41] LABS: ALBUMIN 2.7 g/dL (3.4-5.0); ANION GAP 14.4 (7-21); BILIRUBIN, TOTAL 0.5 ng/dL (0.2-1.0); BUN/CREATININE RATIO 7.52 (6.0-28.6); CALCIUM 8.6 mg/dL (8.5-10.1); CREATININE, SERUM 0.93 mg/dL (0.70-1.30); POTASSIUM 3.4 mmol/L (3.5-5.1); PROTEIN, TOTAL 5.4 g/dL (6.4-8.2)
--- NOTE | 2023-06-17 05:59 | NUR ---
pt RESTING IN BED ON LEFT SIDE, EYES CLOSED, BREATHING UNLABORED. NEW BAG IVF INFUSING WNL.
--- NOTE | 2023-06-17 07:07 | NUR ---
REPORT RECEIVED FROM NATHANAEL NI. PT RESTING ON LEFT SIDE WITH EYES CLOSED. RESPIRATIONS EVEN AND UNLABORED. BED RAILS UP. CALL LIGHT WITHIN REACH. PT ALLOWED TO REST. THIS RN ASSUMING CARE OF PT WITH NATHANAEL CABRERA.
--- NOTE | 2023-06-17 07:09 | NUR ---
RECIEVED REPORT FROM NATHANAEL NI. PT LEFT SIDE LYING RESTING WITH EYES CLOSED, BREATHING EVEN AND UNLABORED. CALL LIGHT WITHIN REACH, BED RAILS UP. ASSUMING CARE WITH NATHANAEL ZENG.
--- NOTE | 2023-06-17 08:15 | NUR ---
MORNING ASSESSMENT DUE. PT RESTING ON LEFT SIDE WITH EYES CLOSED, BREATHING EVEN AND UNLABORED. PT AWAKENS TO VOICE. PT REPORTS NO NAUSEA AT THIS TIME, NO PAIN AT THIS TIME. IVF CONTINUOUS PER ORDER, IV SITE PATENT AND FLUSHED. LUNG SOUNDS CLEAR IN ALL LOBES, NO SOB OR WORK OF BREATHING. NO EDEMA PRESENT, SCDs NOT IN USE PT IS AMBULATING IN ROOM INDEPENDENTLY. MODERATE ABDOMINAL DISTENTION CONTINUES, ABDOMEN IS TENDER AND GUARDED. ACTIVE BOWEL TONES IN ALL QUADRANTS. PT STATES HE HAS NOT HAD A BM SINCE 06/13/23. PT NPO BUT FOR PO MEDICATION. PT VOIDING QUANTITY SUFFICIENT, AMBULATING TO BATHROOM INDEPENDENTLY. NO CHANGES IN SKIN. EDUCATION PROVIDED TO PT AND SPOUSE, ISH, ON CURRENT ILLNESS, DISEASE PROCESS, MEDICATIONS, NPO DIET, UPDATE ON PLAN OF CARE. PTs ENTERED THE ROOM AND STATED "I WAS REALLY MAD ALL NIGHT BECAUSE I WAS TOLD LAST NIGHT THAT I HAD TO TAKE HIM HOME UNDER NO UNCERTAIN CONDITIONS TODAY". PTs SPOUSE UPDATED ON PLAN OF CARE AND DISCUSSION ON PT STATUS THROUGH THE NIGHT. PT AND SPOUSE VERBALIZE UNDERSTANDING AT THIS TIME. PT USED I.S. DEVICE AND GOT TO 250 X5. EDUCATION ON I.S. DEVICE, PT VERBALIZES UNDERSTANDING. PT STATES NO FURTHER NEEDS AT THIS TIME, CALL LIGHT WITHIN REACH, BED RAILS UP, ISH AT THE BEDSIDE.
--- NOTE | 2023-06-17 10:07 | NUR ---
HOURLY ROUNDING. PT RESTING WITH EYES CLOSED, AWAKENS TO SOUND. PT STATES PAIN IS 4/10 AND REQUESTS PAIN MEDICATION, GIVEN. PT REPORTS NO FURTHER NEEDS AT THIS TIME, CALL LIGHT WITHIN REACH, BED RAILS UP.
--- NOTE | 2023-06-17 10:30 | NUR ---
In room to speak with pt. He is nauseated. Does not feel he can dc today.
[2023-06-17 10:31] VITALS: BP 126/58
--- NOTE | 2023-06-17 11:14 | NUR ---
PT DECLINED PASTORAL CARE VISIT. PRAYED FOR ONGOING HEALING AND ABIDING PEACE.
--- NOTE | 2023-06-17 11:22 | NUR ---
THIS RN TO ROOM WITH NATHANAEL CABRERA. FOR HOUR ROUNDS. PT DENIES PAIN AND NAUSEA. CALL LIGHT ON 5 MINUTES LATER. THIS RN BACK TO ROOM AND PT FOUND TO BE VOMITING. 75ML YELLOW EMESIS IN BAG. PT CONTINUES TO DRY HEAVE. SEE MAR FOR MEDICATION GIVEN. DR DOAN TO BEDSIDE FOR ROUNDS, UPDATED ON PT STATUS, ASSESSMENT, PAIN AND NAUSEA. PT AND PTS UPDATED ON PLAN OF CARE. BOTH VERBALIZE UNDERSTANDING AND STATE THEIR QUESTIONS HAVE BEEN ANSWERED. DRY HEAVES STOP WITH MEDICATION ADMINISTRATION. ORAL CARE DONE. IV DRESSING LOOSE AND COVERED WITH ADHESIVE TAPE. DRESSING CHANGED PER PROTOCOL. NO ADDITONAL REQUESTS OR COMPLAINTS. CALL LIGHT WITHIN REACH. BED RAILS UP.
--- NOTE | 2023-06-17 12:02 | NUR ---
CT ARRIVED TO TAKE PT. IV SALINE LOCKED TO GO TO CT, LEAKING FROM IV NOTED. NEW IV START PER PROTOCOL, DC'D R FOREARM IV. PT TRANSFERS SELF TO WHEELCHAIR, STEADY ON FEET. PT TO CT. LINENS CHANGED.
--- NOTE | 2023-06-17 12:29 | NUR ---
PT ARRIVES FROM CT. PT HAVING EMESIS UPON ARRIVAL, REQUESTING NAUSEA MEDICATION, GIVEN. PT AMBULATES BACK TO BED FROM WHEELCHAIR, STEADY ON FEET. IVF RESTARTED PER ORDER. PT STATES NO FURTHER NEEDS AT THIS TIME. CALL LIGHT WITHIN REACH, BED RAILS UP, ISH AT THE BEDSIDE.
--- NOTE | 2023-06-17 13:02 | NUR ---
HOURLY ROUNDING. PT RESTING WITH EYES CLOSED, EVEN AND UNLABORED BREATHING. CALL LIGHT WITHIN REACH, BED RAILS UP, ISH AT THE BEDSIDE.
[2023-06-17 13:27] VITALS: BP 146/61
--- NOTE | 2023-06-17 14:21 | NUR ---
AFTERNOON ASSESSMENT DUE. PT LYING IN BED, AWAKENS TO VOICE. PT DENIES NAUSEA AND RATES HIS ABDOMINAL PAIN AT 0-1/10. PT STATES HE DOES NOT NOTICE ANY FEELINGS OF CONSTIPATION, PT STATES NO CHANGE IN DISTENTION. ABDOMEN TENDER ON LUQ AND LLQ, BOWEL TONES ACTIVE IN ALL BUT FOR THE LLQ. PT BEGINS TO HICCUP WITH ACTIVITY, STATES "I AM HOPING IT IS JUST A HICCUP AND NOT ANOTHER EPISODE" REFERRING TO BECOMING NAUSEAS, NAUSEA MEDICATION NOT YET DUE, PT DENIES NEED FOR MEDICATION AT THIS TIME. IVF CONTINUOUS PER ORDER. PT REMAINS NPO. PT STATES NO FURTHER NEEDS AT THIS TIME. PT UP TO BATHROOM AND BACK TO BED INDEPENDENTLY WITH LINE AND TUBE MANAGEMENT. PT LYING ON RIGHT SIDE AND STATES HE IS "GOING TO REST". CALL LIGHT WITHIN REACH, BED RAILS UP. NO LONGER AT THE BEDSIDE.
--- NOTE | 2023-06-17 15:13 | NUR ---
PATIENT APPEARS TO BE RESTING, APPEARS CALM. BREATHING EVEN, 02 SAT 98% ON ROOM AIR. CONTINIOUS PULSE OX IN PLACE. REPOSITIONED WEIGHT TO LEFT. NO CHANGE TO SURGICAL DRESSING, INTACT. NEW ICE PACKS APPLIED. CMS INTACT.
--- NOTE | 2023-06-17 15:16 | NUR ---
PT CALL LIGHT ON. PT REQUESTS PAIN MEDICATION FOR 4/10 LEFT ABDOMINAL PAIN. PT REPORTS NAUSEA IS WELL CONTROLLED AT THIS TIME. SEE MAR FOR MEDICATION GIVEN. PT RESTING ON LEFT SIDE WITH EYES CLOSED. NO ADDITIONAL REQUESTS OR COMPLAINTS. RESPRIATIONS EVEN AND UNLABORED. BED RAILS UP. CALL LIGHT WITHIN REACH.
--- NOTE | 2023-06-17 15:30 | NUR ---
THIS RN TO ROOM WITH DR. DOAN FOR ROUNDS. PT UPDATED ON IMAGING. 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 OCCATIONAL HICCUPS HEARD. PT UPDATED ON POSSIBILITY AND RISKS FOR CONSTIPATION. PT REPORTS HE IS PASSING GAS. PT REPORTS IS IS OPEN TO A SUPPOSITORY. ORDERS PLACED. PTS ARRIVED TO BEDSIDE, CONTINUES TO BE FORGETFUL "WHAT WAS A CT." PT UPDATES AND REORIENTS HIS . PT REPORTS LEFT ABDOMINAL PAIN IS NOW 1/10 AND TOELRABLE. PT DENIES NEED FOR ADDITIONAL PAIN MEDICAITON. PT VERBALIZES UNDERSTANDING OF PLAN OF CARE AND STATES HIS QUESTIONS HAVE BEEN ANSWERED. NO ADDITIONAL REQUESTS OR COMPLAINTS. CALL LIGHT WITHIN REACH. BED RAILS UP.
--- NOTE | 2023-06-17 16:43 | NUR ---
HOURLY ROUNDING. PT LYING ON RIGHT SIDE, AWAKENS WHEN THIS RN ENTERS ROOM. PT STATES PAIN IS 2/10 AND STATES IT IS "MANAGEABLE", DENIES NEED FOR PAIN MEDICATION. PT STATES HE IS EXPERIENCING NAUSEA AT THIS TIME, REQUESTS NAUSEA MEDICATION, GIVEN. PT EDUCATION ON ADMINISTRATION OF SUPPOSITORY MEDICATION, PT STATES HE WOULD LIKE TO INSERT MEDICATION HIMSELF, PT SELF ADMINISTERED SUPPOSITORY MEDICATION. EDUCATION ON MEDICATIONS DUE, PT VERBALIZES UNDERSTANDING. PT STATES NO FURTHER NEEDS AT THIS TIME, CALL LIGHT WITHIN REACH, BED RAILS UP.
--- NOTE | 2023-06-17 16:55 | NUR ---
PT HERE FOR ACUTE PANCREATITIS. INDEPENDENT IN ROOM, STEADY ON FEET, A+O TO ALL. PT REMAINS NPO THIS SHIFT. CONTINUES TO HAVE N/V WITH 2 EMESIS EPISODES NOTED THIS SHIFT, PRN NAUSEA MEDICATIONS GIVEN. REPEAT CT SCAN THIS SHIFT, RESULTS REVIEWED WITH PT BY MD. MILD ABDOMINAL DISTENTION PER PT. ABDOMEN SOFT, TENDER IN LUQ AND LLQ TO TOUCH, PRN PAIN MEDICATIONS GIVEN. BOWEL TONES HYPOACTIVE AT TIMES, PT HAS NOT HAD BOWEL MOVEMENT SINCE 06/13/23, PT HAD NO COMPLAINTS OF CONSTIPATION BUT FOR THE LLQ TENDERNESS. AT BEDSIDE THROUGHOUT SHIFT, EXTENSIVE EDUCATION ON DISEASE PROCESS PROVIDED. PT VOIDING QUANTITY SUFFICIENT, PT USES CALL LIGHT AND MAKES NEEDS KNOWN.
[2023-06-17 17:00] VITALS: BP 127/56
--- NOTE | 2023-06-17 17:07 | NUR ---
ASKED PATIENT ONE MORE TIME IF HE WOULD LIKE TO TAKE A SHOWER IN CASE HE CHANGED HIS MIND AND HE SAID NO.
--- NOTE | 2023-06-17 17:09 | NUR ---
PATIENT IS TRYING TO SLEEP.
--- NOTE | 2023-06-17 17:34 | NUR ---
HOURLY ROUNDING, PT LEFT SIDE LYING, RESTING WITH EYES CLOSED. BREATHING EVEN AND UNLABORED RR 16. PT AWAKENED BY THIS RN, PT STATES NAUSEA IS "MUCH BETTER" AFTER MEDICATION PROVIDED. PT STATES NO FURTHER NEEDS AT THIS TIME, CALL LIGHT WITHIN REACH, BED RAILS UP.
--- NOTE | 2023-06-17 18:54 | NUR ---
HOURLY ROUNDING. PT LEFT SIDE LYING RESTING WITH EYES CLOSED, RR 16 EVEN AND UNLABORED BREATHING. CALL LIGHT WITHIN REACH, BED RAILS UP.
--- NOTE | 2023-06-17 19:24 | NUR ---
REPORT GIVEN WITH NATHANAEL ZENG TO NATHANAEL LESLIE AND NATHANAEL RODRIGUEZ.
--- NOTE | 2023-06-17 19:31 | NUR ---
PT CALL LIGHT ON. PT REPORTS HE HAS COLLECTED A STOOL SAMPLE THAT HE WOULD LIKE SENT TO [facility]. PT HAS COLLECTED A SMALL SMEAR INTO A BOTTLE. INSTRUCTIONS WITH BOTTLE STATE A "WALNUT" SIZED SAMPLE WILL BE NEEDED. PT ADVISED THAT HE WILL NEED MORE STOOL FOR THIS SAMPLE. PT STATES HE WOULD LIKE A SAMPLE SENT ONCE ENOUGH IS COLLECTED "BECAUSE MAYBE IT WILL CHANGE WHAT IS DONE IN THE FUTURE." EDUCATION DONE WITH PT. PT VERBALIZES UNDERSTANDING. PT REQUESTS NAUSEA MEDICATION, SEE MAR FOR MEDICATION GIVEN. PT REPORTS PAIN IS "NOT THAT BAD." AND DENIES NEED FOR PAIN MEDICATION AT THIS TIME. NEW IV FLUID BAG HUNG. PT DENIES ADDITIONAL REQUESTS OR COMPLAINTS. CALL LIGHT WITHIN REACH. BED RAILS UP.
--- NOTE | 2023-06-17 19:46 | NUR ---
RECEIVED REPORT FROM DAY SHIFT RN. PATIENT IS RESTING IN BED. PATIENT DENIES ANY NEEDS AT THIS TIME. CALL LIGHT IN REACH.
--- NOTE | 2023-06-17 20:20 | NUR ---
PRN PAIN MEDICATION GIVEN PER REQUEST OF PRIMARY RN, pt REPORTS PAIN 4-5/10-SEE EMAR FOR PAIN MEDICATION GIVEN. IV SITE WNL PRE AND POST PAIN MEDICATION ADMINISTRATION, IV FLUIDS INFUSING DIRECTED. CALL LIGHT IN REACH AND BOARD UPDATED. NO ADDITIONAL NEEDS OR CONCERNS VERBALIZED BY pt WHEN ASKED.
[2023-06-17 21:11] VITALS: BP 117/56
--- NOTE | 2023-06-17 21:35 | NUR ---
PATIENTS VITALS TAKEN AND RECORDED. INTAKE AND OUTPUT RECORDED. ASSESMENT COMPLETED. PATIENTS ABD IS MILDLY DISTENDED, TENDER, AND BOWEL TONES ARE ACTIVE. PATIENT DENIES ANY NAUSEA. PATIENTS IV INFUSING PER ORDER. PATIENT REMAINS NPO A THIS TIME. PATIENT DENIES THE NEED FOR ORAL CARE. PATIENT DENIES ANY FURTHER NEEDS. CALL LIGHT AND BELONGINGS ARE WITHIN REACH.
--- NOTE | 2023-06-17 22:15 | NUR ---
PATIENT IS RESTING IN BED ON HIS RIGHT SIDE WITH EYES CLOSED, RR 17. CALL LIGHT IN REACH.
--- NOTE | 2023-06-17 23:58 | NUR ---
PATIENT IS RESTING IN BED WITH EYES CLOSED, RR 17. CALL LIGHT IN REACH.
[2023-06-18] VITALS (7 sets, daily range): BP systolic 15–167; BP diastolic 64–84
--- NOTE | 2023-06-18 00:14 | NUR ---
PATIENT REPORTS 5/10 PAIN IN HIS ABD. PATIENT GIVEN PRN PAIN MEDICATION PER ORDER. PATIENT DENIES ANY NAUSEA. PATIENT DENIES ANY FURTHER NEEDS. CALL LIGHT IN REACH. IV INFUSING PER ORDER.
--- NOTE | 2023-06-18 02:10 | NUR ---
PATIENT IS RESTING IN BED WITH EYES CLSOED, RR 15. PATIENTS IV INFUSIGN PER ORDER. CALL LIGHT AND BELONGINGS ARE WITHIN REACH.
--- NOTE | 2023-06-18 04:15 | NUR ---
PATIENT IS RESTING IN BED WITH EYES CLOSED, RR 15. CALL LIGHT IN REACH.
[2023-06-18 05:40] LABS: BASOPHILS 0.5 % (0-2); EOSINOPHILS 2.3 % (0-6); HEMATOCRIT 39.3 % (35.0-50.0); HEMOGLOBIN 13.4 g/dL (12.0-18.0); LYMPHOCYTES 24.7 % (24-44); MCH 30.5 (27-36); MCV 89.8 fl (81-99); MONOCYTES 8.3 % (0-12); NEUTROPHILS 64.2 % (39-80); PLATELET COUNT 142 K/uL (140-440); RBC 4.38 M/ul (4.3-5.7); RDW 14.2 (10.5-15.0)
[2023-06-18 05:55] LABS: ALBUMIN 2.7 g/dL (3.4-5.0); ALBUMIN/GLOBULIN RATIO 0.87 (1.1-2.4); ANION GAP 9.9 (7-21); BILIRUBIN, TOTAL 0.5 ng/dL (0.2-1.0); BUN/CREATININE RATIO 6.86 (6.0-28.6); CALCIUM 8.8 mg/dL (8.5-10.1); CREATININE, SERUM 1.02 mg/dL (0.70-1.30); POTASSIUM 3.9 mmol/L (3.5-5.1); PROTEIN, TOTAL 5.8 g/dL (6.4-8.2)
--- NOTE | 2023-06-18 06:14 | NUR ---
LAB IN ROOM. PATIENTS VITALS TAKEN AND RECORDED. INTAKE AND OUTPUT RECORDED. PATIENT HAD SMALL YELLOW GELATINOUS BOWEL MOVEMENT. PATIENT DENIES ANY PAIN OR NAUSEA. PATIENT DENIES ANY NEEDS. CALL LIGHT AND BELONGINGS ARE WITHIN REACH. IV INFUSING PER ORDER.
--- NOTE | 2023-06-18 07:18 | NUR ---
REPORT RECEIVED FROM NATHANAEL LESLIE. PT REQUESTING PRN PAIN MEDICATION WILL RETURN WITH PRN PAIN MEDICATION. NO OTHER NEEDS AT THIS TIME. CALL LIGHT IN REACH.
--- NOTE | 2023-06-18 08:49 | NUR ---
IN TO ADMINISTER MEDICATIONS, SEE MAR. PT REPORTING PAIN 4/10 IN ABD. PRN PAIN MEDICATION ADMINISTERED, SEE MAR. ASSESSMENT COMPLETE. LUNG SOUNDS CLEAR. BOWEL TONES ACTIVE. ABD DISTENTION NOTED. ABD SOFT WITH PALPATION. PT DENIES PAIN OR TENDERNESS WITH ABD PALPATION. PT DENIES ANY NUMBNESS OR TINGLING AT THIS TIME. IV IN LEFT FOREARM NOTED TO BE LEAKING, REMOVED, SEE VASCULAR ACCESS. NEW IV STARTED IN RIGHT FOREARM, SEE VASCULAR ACCESS. PT DENIES ANY OTHER NEEDS AT THIS TIME. CALL LIGHT IN REACH.
--- NOTE | 2023-06-18 09:25 | NUR ---
RESPOND TO CALL LIGHT FOR IV PUMP ALARMING. PT'S IN ROOM. IV FLUIDS COMPLETE. ADVISED PRIMARY RN WHO WAS ON HER WAY TO START A NEW BAG OF FLUIDS. ADVISED PT THAT HIS NURSE WOULD BE RETURNING. PT STATES HE WOULD LIKE TO SHOWER IN A WHILE. ADVISED PT TO USE HIS CALL LIGHT WHEN HE'S READY.
--- NOTE | 2023-06-18 09:28 | NUR ---
IN IV PUMP ALARMING. NEW BAG OF FLUIDS STARTED, SEE MAR. PT DENIES ANY OTHER NEEDS AT THIS TIME. PT LAYING IN BED READING BOOK. IN ROOM. CALL LIGHT IN REACH.
--- NOTE | 2023-06-18 12:34 | NUR ---
IN TO ROUND ON PT. PT LAYIN IN BED. PT REPORTS SEEING DR. DOAN RECENTLY. PT DENIES PAIN AT THIS TIME. PT DENIES NAUSEA AT THIS TIME. HAT EMPTIED. PT USES IS. PT DENEIS ANY OTHER NEEDS AT THIS TIME. CALL LIGHT IN REACH.
--- NOTE | 2023-06-18 13:21 | NUR ---
PT DECLINED VISIT. PRAYED FOR TENRIISM OF HEALTH AND ABIDING PEACE.
--- NOTE | 2023-06-18 13:42 | NUR ---
IN TO ROUND ON PT. PT LAYING IN BED ON RIGHT SIDE. PT RESPONDS WHEN ADDRESSED AND SITS UP IN BED. PT DENIES PAIN AT THIS TIME. ASSESSMENT COMPLETE. LUNG SOUNDS CLEAR. BOWEL TONES ACTIVE. ABD DISTENTION NOTED. ABD SOFT TO PALPATION. PT REPORTS TENDERNESS WITH ABD PALPATION ON LEFT SIDE. PT REPORTS PASSING FLATUS. PT REPORTS HAVING A "VERY LITTLE BM" THIS MORNING. IN ROOM. PT DENIES ANY NEEDS AT THIS TIME. CALL LIGHT IN REACH.
--- NOTE | 2023-06-18 14:45 | NUR ---
FOCUSED ABDOMINAL ASSESSMENT COMPLETE. BOWEL TONES IN ALL FOUR QUADRENTS, WNL. ABDOMEN SOFT, APPEARS SLIGHTLY DISTENDED. PATIENT REPORTS TENDERNESS IN LUQ, PATIENT DECLINED PAIN MEDICATION. PATIENT STATES TENDERNESS IS WITHIN PAIN GOAL. PATIENT STATES HE HAD A BOWEL MOVEMENT AT 0600 THIS MORNING. VITAL SIGNS OBTAINED. PATIENT AMBULATED IN [place] AND IS INDEPENDENT IN ROOM. PATIENT HAS AMBULATED TO BATHROOM. PATIENT STATES HE PERFORMED ORAL CARE AND TOOK A SHOWER. PATIENT TOLORATED AMBULATION WELL. STEADY GAIT. PATIENT STATES HE WOULD LIKE TO REST. PATIENT REPORTS NO QUESTIONS OR CONCERNS AT THIS TIME. ASSESSED PATIENT COPING MECHANISMS. IN ROOM VISITING. CALL LIGHT WITHIN REACH. SAFTEY EQUIPTMENT IN PLACE.
--- NOTE | 2023-06-18 15:45 | NUR ---
PATIENT RESTING IN BED, CONVERSING WITH . RESPIRATIONS EVEN AND UNLABORED. PATIENT EDUCATED ON IS USE. PATIENT DEMONSTRATED IS USE WITH PROPER TECHNIQUE. PATIENT WOULD LIKE TO REST, NO QUESTIONS OR CONCERNS AT THIS TIME. CALL LIGHT WITHIN REACH. PERSONAL ITEMS WITHIN REACH. SAFTEY EQUIPTMENT IN PLACE.
--- NOTE | 2023-06-18 15:54 | NUR ---
IN TO ROUND ON PT. PT LAYING IN BED. PT RESPONDS WHEN ADDRESSED. PT DENIES NAUSEA AT THIS TIME. PT DENIES ANY NEEDS AT THIS TIME. CALL LIGHT IN REACH. IN ROOM.
--- NOTE | 2023-06-18 16:18 | NUR ---
PATIENT IN BED, RESPIRATIONS EVEN AND UNLABORED. PATIENT REPORTS NO PAIN OR NAUSEA. PATIENT STATES HE IS COMFORTABLE IN BED. PATIENT IS INDEPENDENT IN ROOM, DOES NOT REPORT ANY SHORTNESS OF BREATH, WEAKNESS, OR DIZZINESS WITH ACTIVITY. PATIENT PERSONAL ITEMS WITHIN REACH. PATIENT REPORTS NO CONCERNS OR NEEDS AT THIS TIME. CALL LIGHT WITHIN REACH. SAFTEY EQUIPTMENT IN PLACE.
--- NOTE | 2023-06-18 16:40 | NUR ---
IN PUMP ALARMING. NEW BAG OF FLUIDS STARTED. IV FLUSHES WNL. PT DENIES PAIN AT THIS TIME. PT REPORTS "SMALL VOMITING EPISODE" 50ML NOTED IN EMESIS BAG. PT DENIES FEELING NAUSEOUS AT THIS TIME. HAT EMPTIED. PT DENIES ANY OTHER NEEDS AT THIS TIME. CALL LIGHT IN REACH.
--- NOTE | 2023-06-18 17:38 | NUR ---
IN WITH SN LITZY. PT LAYING ON RIGHT SIDE. PT REQUESTING PRN ZOFRAN. PRN ZOFRAN ADMINISTERED, SEE MAR. PT DENIES ANY OTHER NEEDS AT THIS TIME. CALL LIGHT IN REACH.
--- NOTE | 2023-06-18 17:40 | NUR ---
PATIENT REPORTED NAUSEA. ADMINISTERED MEDICATION WITH PRIMARY RN, SEE EMAR. PATIENT REPORTS NO OTHER NEEDS AT THIS TIME. PATIENT VS OBTAINED, SEE FLOWSHEET. IV FLUSHED WNL. LR FLUIDS RUNNING 150 ML/HR. PATIENT RESTING IN BED, RESPIRATIONS EVEN AND UNLABORED. PATIENT PERSONAL ITEMS WITHIN REACH, CALL LIGHT WITHIN REACH. SAFTEY EQUIPTMENT IN PLACE.
--- NOTE | 2023-06-18 18:10 | NUR ---
FOCUSED ABDOMINAL ASSESSMENT COMPLETE. BOWEL SOUNDS IN ALL FOUR QUADRENTS, WNL. PATIENT REPORTS SLIGHT TENDERNESS IN RLQ AND LLQ WITH PALPATION, PATIENT STATES NO PAIN. OFFERED REPOSITIONING AND HEAT COMPRESS, PATIENT DECLINED. PATIENT STATES HIS DISCOMFORT IS WITHIN PAIN GOAL RANGE. PRIMARY RN NOTIFIED. ABDOMEN SLIGHTLY DISTENDED. PATIENT REPORTS NO BOWEL MOVEMENTS SINCE THIS MORNING AT 0600. ABDOMEN IS SOFT. REASSESSED PATIENT NAUSEA, PATIENT STATES NAUSEA HAS IMPROVED AND HE IS NOT EXPERIENCING PAIN. RESPIRATIONS EVEN AND UNLABORED. PATIENT RESTING IN BED WITH EYES OPEN. PATIENT WATCHING TELEVISION. PATIENT REPORTS NO NEEDS AT THIS TIME. PERSONAL ITEMS AND CALL LIGHT WITHIN REACH. SAFTEY EQUIPTMENT IN PLACE.
--- NOTE | 2023-06-18 19:00 | NUR ---
REPORT RECEIVED FROM IVETT UHFFMAN. PT RESTING IN BED. IV FLUIDS INFUSING PER ORDER. NO NEEDS AT THIS TIME. CALL LIGHT IN REACH.
--- NOTE | 2023-06-18 21:30 | NUR ---
ASSESSMENT, VS AND I&O COMPLETED. GCS 15, A&O X4. LUNGS CLEAR, HEART TONES REGULAR. ABD FIRM, MILDLY DISTENDED, BOWEL TONES ACTIVE. PT STATES PAIN IS "TOLERABLE" AND DECLINES PAIN MEDS. PT DENIES NAUSEA. CMS INTACT. IV FLUIDS INFUSING PER ORDER. IV WNL, FLUSHED WELL. PT STATES NO NEEDS AT THIS TIME. CALL LIGHT IN REACH.
--- NOTE | 2023-06-18 22:36 | NUR ---
call light answered, pt reports pain 3-4/10, prn pain medication given-see emar. iv site wnl, new bag iv fluids hung and infusing as directed. no additional needs, call light in reach.
--- NOTE | 2023-06-18 23:52 | NUR ---
PT RESTING IN BED, EYES CLOSED. RR EVEN, UNLABORED. CALL LIGHT IN REACH.
--- NOTE | 2023-06-19 00:20 | NUR ---
PT RESTING IN BED, EYES CLOSED. RR EVEN, UNLABORED. CALL LIGHT IN REACH.
--- NOTE | 2023-06-19 02:00 | NUR ---
PT RESTING IN BED. PT DENIES ABD PAIN OR NAUSEA. PT DENIES NEEDS AT THSI TIME. CALL LIGHT IN REACH. IV FLUIDS INFUSING PER ORDER.
--- NOTE | 2023-06-19 03:54 | NUR ---
PT CALLS TO REPORT 5/10 PAIN IN HIS "BACK BEHIND THE KIDNEYS", PRN PAIN AND NAUSEA MED PROVIDED. NAUSEA MED PROVIDED PT IS CONCERNED THE PAIN MED WILL CAUSE NAUSEA. PT STATES NO OTHER NEEDS AT THIS TIME. CALL LIGHT IN REACH.
--- NOTE | 2023-06-19 04:51 | NUR ---
PT RESTING IN BED, EYES CLOSED. RR EVEN, UNLABORED. IV FLUIDS IFUSING PER ORDER. CALL LIGHT IN REACH.
[2023-06-19 05:22] VITALS: BP 115/48
[2023-06-19 05:22] LABS: BASOPHILS 0.4 % (0-2); EOSINOPHILS 2.4 % (0-6); HEMATOCRIT 35.7 % (35.0-50.0); HEMOGLOBIN 12.3 g/dL (12.0-18.0); LYMPHOCYTES 19.3 % (24-44); MCH 30.5 (27-36); MCHC 34.6 g/dl (30-36); MCV 88.2 fl (81-99); NEUTROPHILS 67.9 % (39-80); PLATELET COUNT 145 K/uL (140-440); RBC 4.05 M/ul (4.3-5.7)
--- NOTE | 2023-06-19 05:23 | NUR ---
LAB IN ROOM. VS AND I&O COMPLETED. PT STATES HIS PAIN IS "MUCH BETTER". PT STATES NO NEEDS AT THIS TIME. CALL LIGHT IN REACH.
[2023-06-19 05:35] LABS: ALBUMIN 2.3 g/dL (3.4-5.0); ALBUMIN/GLOBULIN RATIO 0.77 (1.1-2.4); ANION GAP 12.6 (7-21); BILIRUBIN, TOTAL 0.5 ng/dL (0.2-1.0); BUN/CREATININE RATIO 8.51 (6.0-28.6); CALCIUM 8.3 mg/dL (8.5-10.1); CREATININE, SERUM 0.94 mg/dL (0.70-1.30); POTASSIUM 3.6 mmol/L (3.5-5.1); PROTEIN, TOTAL 5.3 g/dL (6.4-8.2)
--- NOTE | 2023-06-19 06:27 | NUR ---
PT RESTING IN BED, EYES CLOSED. RR EVEN, UNLABORED. CALL LIGHT IN REACH.
--- NOTE | 2023-06-19 07:00 | NUR ---
REPORT RECEIVED FROM NATHANAEL BAPTISTE. PT LAYING ON RIGHT SIDE. RR EVEN AND UNLBAORED. NO NEEDS IDENTIFIED AT THIS TIME. CALL LIGHT IN REACH.
--- NOTE | 2023-06-19 07:15 | NUR ---
BEDSIDE REPORT COMPLETE. PATIENT IN BED, RESTING. RESPIRATIONS EVEN AND UNLABORED. LR FLUIDS RUNNING AT 150 ML/HR. PATIENT BELONGINGS WITHIN REACH. CALL LIGHT WITHIN REACH. SAFTEY EQUIPTMENT IN PLACE.
--- NOTE | 2023-06-19 07:45 | NUR ---
PATIENT PHYSICAL ASSESSMENT COMPLETE. DIMINISHED LUNG SOUNDS IN RLQ. CLEAR LUNG SOUNDS IN ALL FOUR QUADRENTS. PRIMARY RN NOTIFIED. PATIENT REPORTS SLIGHT TENDERNESS UPON ABDOMINAL PALPATION. PRIMARY RN NOTIFIED. IV SITE ASSESSED, WNL. IV FLUIDS RUNNING AT 150 ML/HR. PATIENT AMBULATED TO RESTROOM. PATIENT REPORTS INCREASED WEAKNESS WITH ACTIVITY, PRIMARY RN NOTIFIED. PATIENT RESTING IN BED. PATIENT REPORTS NO OTHER CONCERNS AT THIS TIME. PATIENT DECLINED ORAL CARE AT THIS TIME. PATIENT REPORTS NO OTHER NEEDS AT THIS TIME. PATIENT STATES HE WOULD LIKE TO REST. PERSONAL ITEMS WITHIN REACH. CALL LIGHT WITHIN REACH. SAFTEY EQUIPTMENT IN PLACE.
[2023-06-19 08:41] VITALS: BP 132/69
--- NOTE | 2023-06-19 08:46 | NUR ---
IN WITH SN BRITTANY AND AGGIE RN TO ADMINISTER MEDICATIONS, SEE MAR. PT TAKES PO MEDICATION WITH NO ISSUES. PT REQUESTING TO TRY CLEAR LIQUID THIS MORNING. TRAY PROVIDED. ASSESSMENT COMPLETE. PT DENIES NAUSEA OR PAIN AT THIS TIME. LUNG SOUNDS CLEAR IN RUL, FILIBERTO AND LLL. DIMINISHED IN RLL. BOWEL TONES ACTIVE. ABD DISTENTION NOTED. ABD FIRM WITH PALPATION. PT DENIES TENDERNESS OR PAIN WITH PALPATION. PT DENIES ANY NEEDS AT THIS TIME. CALL LIGHT IN REACH.
--- NOTE | 2023-06-19 09:00 | NUR ---
ROUNDING ON PATIENT. PATIENT SITTING ON SIDE OF BED. PATIENT VISITING WITH . PATIENT EATING BREAKFAST, CLEAR LIQUID DIET. PATIENT RESPIRATIONS EVEN AND UNLABORED. PATIENT REPORTS NO PAIN OR NAUSEA. PATIENT STATES HE IS COMFORTABLE. PATIENT REPOSITIONS INDEPENDENTLY. PATIENT REPORTS NO NEEDS AT THIS TIME. CALL LIGHT AND PERSONAL ITEMS WITHIN REACH. SAFTEY EQUIPTMENT IN PLACE.
--- NOTE | 2023-06-19 09:41 | NUR ---
THIS RN NOTIFIED MD THAT PT AND ARE ASKING ABOUT TALKING TO A FILTER HELPER. AWARE. STATES "IT WAS DISCUSSED IN THE MORNING MEETING AND THE FILTER HELPER IS AWARE."
--- NOTE | 2023-06-19 09:51 | NUR ---
THIS RN TALKED TO DR. DOAN REGARDING BOWEL REGIMEN FOR PT. PER DR. DOAN "WE WILL SEE HOW PT DOES WITH CLEAR LIQUID DIET AND THEN WE CAN TALK TO THE PT AND SEE IF THE PT WOULD LIKE TO HAVE MIRALAX OR SENNA." THIS RN ALSO CLARIFIED WITH MD REGARDING PTs BP MEDICATION. PER MD "OKAY TO FOR ADMINISTRATION."
--- NOTE | 2023-06-19 09:55 | NUR ---
PATIENT'S , RENAE, HAS BEEN ASKING IF I COULD COME AND TALK TO THEM ABOUT THE PATIENT'S DIET FOR WHEN HE GOES HOME. SHE STATES THE DIET FOR H.PYLORI AND PANCREATITIS ARE CONFLICTING. I EXPLAINED THAT AFTER A BOUT OF PANCREATITIS, A LOW-FAT DIET IS BEST, WHICH WILL ACTUALLY WORK JUST FINE FOR H.PYLORI INFECTION TOO. I ALSO EXPLAINED THAT EASY TO DIGEST FOODS SUCH COOKED VEGETABLES, APPLESAUCE, CANNED FRUIT, BAKED POTATO, ETC. ARE RECOMMENDED. I PRINTED A HANDOUT FROM THE [facility] ON PANCREATITIS NUTRITION THERAPY WHICH HAS A LIST OF FOODS RECOMMENDED AND FOODS NOT RECOMMENDED. I MENTIONED THAT IF HE DOESN'T THINK ACIDIC FOODS/BEVERAGES SOUND GOOD, THEN AVOID THEM. ACIDIC OR SPICY FOODS CAN IRRITATE THE STOMACH SO HE MAY WANT TO AVOID THEM FOR AWHILE. THEY ASKED GOOD QUESTIONS WHICH I DID ANSWER. MY NAME AND OFFICE # ARE ON THE HANDOUT. PATIENT IS GOING SLOW ON A CLEAR LIQUID DIET RIGHT NOW. I MENTIONED FOR HIM TO DRINK THE ENSURE CLEAR SINCE WHICH WILL PROVIDE HIM WITH VITAMINS, MINERALS AND 8 GM PROTEIN PER BOTTLE. HIS CAN BUY THEM AT THE STORE, TOO. HE SAID HE LOST ABOUT 25 LBS IN THE LAST 2 MONTHS DEALING WITH THE H.PYLORI AND NOW PANCREATITIS. THIS RD WILL REMAIN AVAILABLE IF NEEDED.
[2023-06-19 10:00] VITALS: BP 128/66
--- NOTE | 2023-06-19 10:00 | NUR ---
VITAL SIGNS OBTAINED. SEE FLOWSHEET. PATIENT VISITING WITH . PATIENT RESPIRATIONS EVEN AND UNLABORED. PATIENT ABULATED TO RESTROOM, PATIENT REPORTS NO WEAKNESS WITH ACTIVITY. PATIENT TOLORAED ACTIVITY WELL. PRIMARY RN NOTIFIED. PATIENT FINISHING CLEAR LIQUID BREAKFAST. PATIENT PERFORMED ORAL CARE. BED LINENS CHANGED. PATIENT REPORTED LOWER BACK ACHE, STATES HE IS NOT IN PAIN. PRIMARY RN NOTIFIED. PATIENT PROVIDED A HEAT COMPRESS. PATIENT REPORTS NO NAUSEA OR PAIN AT THIS TIME. PATIENT EDUCATED ON IS USE, PATIENT DEMONSTRATED PROPER USE. PATIENT REPORTS NO QUESTIONS OR CONCERNS AT THIS TIME. CALL LIGHT AND PERSONAL ITEMS WITHIN REACH. SAFTEY EQUIPTMENT IN PLACE. PATIENT SITTING ON SIDE OF BED.
--- NOTE | 2023-06-19 10:23 | NUR ---
EXERCISED MINISTRY OF PRESENCE PT AND TALKED OF PT HEALTH JOURNEY. CONSTENTED TO PRAYER. PRAYED FOR CONTINUED HEALING AND ONGOING BLESSING.
--- NOTE | 2023-06-19 10:36 | NUR ---
IN TO ROUND ON PT. PT SITTING UP IN BED. PT TALKING WITH VISITORS. NO NEEDS IDENTIFIED AT THIS TIME. CALL LIGHT IN REACH.
--- NOTE | 2023-06-19 10:45 | NUR ---
UR NOTE: MCG VARIANCE 06/17/23 GL DAY 3 VARIANCE 06/18/23 GL DAY 3 VARIANCE 06/19/23 GL DAY 3
--- NOTE | 2023-06-19 11:27 | NUR ---
IN TO ROUND ON PT. PT AMBULATING IN ROOM AND AMBULATES TO BED. PT DENIES PAIN OR NAUSEA AT THIS TIME. PT REQUESTING TO HAVE FLUDS DECREASED WILL TALK TO MD. PT DENIES ANY NEEDS AT THIS TIME. CALL LIGHT IN REACH.
--- NOTE | 2023-06-19 11:32 | NUR ---
THIS RN TALKED TO DR. DOAN REGARDING PTs FLUIDS PT IS REPORTING INCREASE IN NEED IN VOIDING. PER DR. DOAN "SL PT AT THIS TIME" VERIFIED WITH READBACK.
--- NOTE | 2023-06-19 11:35 | NUR ---
ROUNDING ON PATIENT. PATIENT REPORTS NO NAUSEA OR VOMITING. PATIENT REPORTS NO PAIN AT THIS TIME. PATIENT REPORTS A DECREASE IN LOWER BACK DISCOMFORT WITH HEAT COMPRESS. IV SITE ASSESSED, WNL. PATIENT REPORTS NO CONCERNS AT THIS TIME.
--- NOTE | 2023-06-19 11:40 | NUR ---
THIS RN IN WITH SN BRITTANY TO RONY PT. PT SL AT THIS TIME. PT DENIES ANY OTHER NEEDS AT THIS TIME. CALL LIGHT IN REACH. HAT IN TOILET EMPTIED.
--- NOTE | 2023-06-19 11:43 | NUR ---
PATIENT ABDOMEN SLIGHTLY DISTENDED. BOWEL TONES PRESENT IN ALL FOUR QUADRENTS. PATIENT REPORTED SLIGHT TENDERNESSS WITH PALPATION, PATIENT STATES TENDERNESS IS ONLY WITH PALPATION. PATIENT STATES DISCOMFORT IS WITHIN ACCEPTED PAIN GOAL. ABDOMEN CONTINUES TO BE DISTENDED. PATIENT REPORTS PASSING GAS. PATIENT DENIES NAUSEA. WITH PRIMARY RN, SALINE LOCKED IV. PATIENT TOLORATED WELL. PATIENT IS AMBULATING TO RESTROOM INDEPENDENTLY. PATIENT STATES HE IS COMFORTABLE WITH CURRENT PLAN OF CARE.
--- NOTE | 2023-06-19 13:15 | NUR ---
IN TO ROUND ON PT. PT REPORTING THAT THE BEEF BROTH ON LUNCH TRAY IS NO GOOD AND WOULD LIKE TO TRY THE VEGETABLE BROTH. PROVIDED PT WITH VEGETABLE BROTH. PT REPORTS "THAT IS BETTER." PT DENIES ANY NEEDS AT THIS TIME. CALL LIGHT IN REACH. FAMILY MEMBER IN ROOM.
[2023-06-19 13:54] VITALS: BP 145/74
--- NOTE | 2023-06-19 13:59 | NUR ---
AGGIE RN REPORTED TO THIS RN THAT PT IS REQUESTING PRN PAIN MEDICATION. PRN PAIN MEDICATION ADMINISTERED, SEE MAR. PT REPORTING PAIN 3/10 IN LOWER ABD. VITALS COMPLETE. PT DENIES ANY OTHER NEEDS AT THIS TIME. CALL LIGHT IN REACH. FAMILY IN ROOM VISITING WITH PT.
--- NOTE | 2023-06-19 15:09 | NUR ---
IN TO ROUND ON PT TO COMPLETE ASSESSMENT. PT RESTING IN BED SEMI-FOWLERS. EYES CLOSED, RR EVEN AND UNLABORED. PT ALLOWED TO REST. NO OTHER NEEDS IDENTIFIED AT THIS TIME. CALL LIGHT IN REACH. IN ROOM.
--- NOTE | 2023-06-19 15:36 | NUR ---
IN TO ANSWER CALL LIGHT. PT REQUESTING PRN NAUSEA MEICATION. AGGIE RN IN ROOM. PRN NAUSEA MEDICATION ADMINISTERED, SEE MAR. PT LAYING IN BED SEMI-FOWLERS. PT DENIES PAIN AT THIS TIME. LUNG SOUNDS CLEAR. BOWEL TONES ACTIVE. PT DENIES PAIN OR TENDERNESS WITH ABD PALPATION. ABD FIRM ON LUQ WITH PALPATION. ABD SOFT ON LLQ, RUQ AND RLQ. PT REPORTS PASSING FLATUS. PT DENIES ANY BM TODAY SO FAR. PT DENIES ANY OTHER NEEDS AT THIS TIME. CALL LIGHT IN REACH. IN ROOM.
--- NOTE | 2023-06-19 15:48 | NUR ---
IN TO ANSWER CALL LIGHT. PT ASKING ABOUT BP MEDICATION. EDUCATED PT ON THE MEDICATION PT IS RECEIVING IN THE HOSPITAL FOR BP. PT ASKING TO INCREASE DOSE TO HIS NORMAL HOME DOSE. PT ALSO ASKING FOR SOMETHING FOR HEADACHE RATHER THAN THE PRN DILAUDID. VITALS AND I&Os COMPLETE. THIS RN WILL TALK TO MD. PT DENIES ANY OTHER NEEDS AT THIS TIME. CALL LIGHT IN REACH.
--- NOTE | 2023-06-19 16:48 | NUR ---
IN TO ROUND ON PT. PT LAYING IN BED ON LEFT SIDE. EYES CLOSED, RR EVEN AND UNLABORED. NO NEEDS IDENTIFIED AT THIS TIME. CALL LIGHT IN REACH.
[2023-06-19 17:42] VITALS: BP 160/85
--- NOTE | 2023-06-19 18:02 | NUR ---
THIS RN TALKED TO DR. ROMANO REGARDING PT REQUESTING TO HAVE BP MEDICATION INCREASED TO HOME DOSE OF 100MG DAILY. PER DR. ROMANO "COZAAR 100MG PO DAILY" VERIFIED WITH READBACK. THIS RN ALSO ASKED DR. ROMANO FOR SOMETHING ELSE FOR PAIN/HEADACHE RATHER THAN DILAUDID. PER DR. ROMANO "TYLENOL 650MG PO Q6 HOURS FOR PAIN" VERIFIED WITH READBACK.
--- NOTE | 2023-06-19 18:14 | NUR ---
IN TO ADMINISTER PRN PAIN MEDICATION. PT REPORTING HEADACHE 01/07. PT TAKES PO MEDICATION WITH NO ISSUES. PT INFORMED OF MEDICATION UPDATED. PT VERBALIZES UNDERSTANDING. PT DENIES ANY OTHER NEEDS AT THIS TIME. CALL LIGHT IN REACH.
--- NOTE | 2023-06-19 19:30 | NUR ---
RECEIVED REPORT FROM DAY SHIFT RN. PATIENT IS RESTING IN BED WATCHING TV. PATIENT DENIES ANY NEEDS. CALL LIGHT IN REACH.
--- NOTE | 2023-06-19 19:41 | NUR ---
MD ON THE FLOOR. REQUESTED PO PAIN MEDICATION FOR PATIENT. NEW VERBAL ORDER RECEIVED FRO DECREASED IV PAIN MEDICATION, VERIFIED VERBAL ORDER USING THE REPEATBACK METHOD. MD TO ADDRESS PO PAIN MEDICATION IN AM. BOWEL CARE INITATIED PER PROTOCOL.
[2023-06-19 21:00] VITALS: BP 118/60
--- NOTE | 2023-06-19 21:23 | NUR ---
PATIENT IS RESTING IN BED ON LEFT SIDE. PATIENTS ASSESMENT COMPLETED. PATIENT HAS ACTIVE DOWEL TONES. PATIENTS ABD IS MOD DISTENDED. PATIENT REPORTS PASSING GAS. PATIENT DENIES ANY PAIN OR NAUSEA. PM MEDS PER ORDER. PATIENTS IV FLUSHED AND SL PER ORDER. PATIENT DENIES ANY NEEDS. CALL LIGHT AND BELONGINGS ARE WITHIN REACH.
--- NOTE | 2023-06-19 22:07 | NUR ---
PATIENT IS RESTING IN BED WITH EYES CLSOED, RR 16. CALL LIGHT IN REACH.
--- NOTE | 2023-06-19 23:15 | NUR ---
PATIENT REPORTS 3/10 ABD PAIN, PRN PAIN MEDICATION GIVEN PER ORDER. PATIENT DENIES ANY NAUSEA. NO FURTHER NEEDS NOTED. CALL LIGHT IN REACH.
--- NOTE | 2023-06-20 00:20 | NUR ---
PATIENT IS RESTING IN BED ON RIGHT SIDE WITH EYES CLOSED, RR 16. CALL LIGHT IN REACH.
--- NOTE | 2023-06-20 02:49 | NUR ---
PATIENT CALLED AND REPORTED HEADACHE. PRN PAIN MEDICATION FOR HEADACHE GIVEN PER ORDER. PATIENT DENIES ANY ABD PAIN. PATIENT DENIES ANY NAUSEA. FRESH ICE WATER PROVIDED. PATIENT DENIES ANY FURTHER NEEDS. CALL LIGHT IN REACH.
--- NOTE | 2023-06-20 04:03 | NUR ---
PATIENT IS RESTING IN BED WITH EYES CLOSED, RR 15. CLAL LIGHT IN REACH.
[2023-06-20 05:39] VITALS: BP 136/80
--- NOTE | 2023-06-20 06:31 | NUR ---
PATIENTS VITALS TAKEN AND RECORDED. PATIENTS INTAKE AND OUTPUT RECORDED. PATIENT DENIES ANY PAIN OR NAUSEA. PATIENTS IV FLUSHED AND SL PER ORDER. CALL LIGHT IN REACH.
--- NOTE | 2023-06-20 08:03 | NUR ---
report received from night rn - pt resting in bed on side with eyes closed, rr even and unlabored. call light in reach.
--- NOTE | 2023-06-20 09:03 | NUR ---
assessment complete - pt reports improvement in pain and symptoms. abd less tender, denies need for pain medication at this time. requests to advance diet - md in room rounding.
[2023-06-20 09:23] VITALS: BP 123/70
--- NOTE | 2023-06-20 09:56 | NUR ---
pt resting in bed, ate cream of wheat without pain or nausea. denies further needs, call light in reach, in room.
--- NOTE | 2023-06-20 10:55 | NUR ---
PT UP AMBULATING IN HALLWAY WITH .
--- NOTE | 2023-06-20 11:57 | NUR ---
pt resting on side with eyes closed, rr even and unlabored. call light in reach.
--- NOTE | 2023-06-20 13:20 | NUR ---
pt resting in bed after lunch, no acute distress. call light in reach.
[2023-06-20 14:04] VITALS: BP 119/64
--- NOTE | 2023-06-20 15:17 | NUR ---
prn pain medication administered for 6/10 lower left quadrant pain. pt noted to have chills, afebrile. warm blanket provided. resting in bed after ambulation to bathroom, voiding independently.
--- NOTE | 2023-06-20 16:00 | NUR ---
pt rates pain 2/10 in abd after prn pain medication. and female friend at bedside concerned about taking pt home without home health to "help lift him and bathe him". pt has been independent in room and hallway entire stay. this rn attempts to communicate that home health is not anticipated after dc home. pt resting in bed and denies further needs.
--- NOTE | 2023-06-20 17:23 | NUR ---
rn in room to answer call light. pt resting in bed and asks to discuss condition and treatment plan. all questions answered. dinner delivered.
[2023-06-20 18:45] VITALS: BP 123/63
--- NOTE | 2023-06-20 19:37 | NUR ---
RECEIVED REPORT FROM DAY SHIFT RN. PATIENT IS RESTING IN BED. PATIENT ENCOURAGED TO DO IS AND AMBULATE IN THE MAGDALENO. PATIENT DENIES ANY FURTHER NEEDS. CALL LIGHT IN REACH.
[2023-06-20 19:52] VITALS: BP 110/77
--- NOTE | 2023-06-20 20:12 | NUR ---
PATIENT NOTED BY DAYSHIFT TO HAVE ELEVATED TEMP. PATIENT DENIES ANY CHILLS OR BEING OVERHEATED. PATIENT COMPLETED IS X4, TEMP TURNED DOWN IN ROOM TO 71 FROM 76, ALL BLANKETS REMOVED, AND PATIENT UP AMBULATING IN ROOM. AFTER COMPLETION OFR INTERVENTIONS PATIENTS TEMP IS WNL. PATIENTS VITALS TAKEN AND RECORDED. INTAKE AND OUTPUT RECORDED. PATIENTS IV NOTED TO HAVE REDNESS AT INSERTION SITE. IV DC'D AND NEW IV PLACED. PATIENT DENIES ANY PAIN OR NAUSEA. ASSEMENT COMPLETED. PATIENTS PM MEDS GIVEN PER ORDER. PATIENT DENIES ANY FURTHER NEEDS. PATIENT REPORTS BEING FRUSTRATED WTIH HIS WIFES BEHAVIOR. PATIENT REASSURED AND SUPPORT PROVIDED.
--- NOTE | 2023-06-20 22:07 | NUR ---
PATIENT IS RESTING IN BED WITH EYES CLOSED, RR 15. CALL LIGHT IN REACH.
[2023-06-20 22:15] VITALS: BP 138/84
--- NOTE | 2023-06-20 22:48 | NUR ---
PATIENT COULD BE HEARD FROM RN STATION. WHEN THIS RN ENTERED ROOM PATIENT WAS NOTED TO BE DRY HEAVING. NO EMESIS NOTED. PATIENT GIVEN PRN NAUSEA MEDICATION PER ORDER. PATIENT STATED "THIS IS MILD COMPARED TO MY EPISODES AT HOME". PATIENT DENIES ANY PAIN. PATIENT PROVIDED WITH WARM RAG TO WASH FACE. PATIENT IS NOW LAYING BACK IN BED. PATIENT DENIES ANY FURTHER NEEDS. CALL LIGHT IN REACH.
--- NOTE | 2023-06-21 00:33 | NUR ---
SUSSY IS RESTING IN BED WITH EYES CLOSED, RR 16. CALL LIGHT IN REACH.
--- NOTE | 2023-06-21 01:57 | NUR ---
PATIENT CALLED AND REQUEST NAUSEA MEDICATION, PRN MEDICATION GIVEN PER ORDER. PATIENT REQUESTED WARM BLANKET. TEMP CHECKED AND IS WNL. PATIENT DENIES ANY PAIN. PATIENT DENIES ANY FURTHER NEEDS. CALL LIGHT IN REACH.
--- NOTE | 2023-06-21 04:08 | NUR ---
PATIENT IS RESTING IN BED WITH EYES CLOSED, RR 16. CALL LIGHT IN REACH.
[2023-06-21 05:54] VITALS: BP 121/69
--- NOTE | 2023-06-21 05:55 | NUR ---
PATIENT UP TO BR IND. PATIENT IS ABCK IN BED RESTING. PATIENT DENIES ANY PAIN OR NAUSEA. PATIENT STATED "I SLEPT REALLY GOOD AND ALL NIGHT". PATIENTS VITALS TAKEN AND RECORDED. PATIENTS INTAKE AND OUTPUT RECORDED. PATIENT DENIES ANY NEEDS. IV FLUSHED AND SL PER ORDER. PATIENTS CALL LIGHT AND BLEONGINGS ARE WITHIN REACH.
[2023-06-21 08:35] VITALS: BP 126/68
--- NOTE | 2023-06-21 08:46 | NUR ---
Pt in bed, cooperative wth asessments, denies c/o pain or N?V. SL patent, on room air, fluids and call light at hands reach. Pt aware of need to ambulate after breakfast at least 2 laps, stated understanding.
--- NOTE | 2023-06-21 09:49 | NUR ---
PT WALKED 2 FULL LAPS ACOMPANIED BY , TOLERATED WELL, BACK TO ROOM, NO C/O PAIN
--- NOTE | 2023-06-21 10:07 | NUR ---
PT USES CALL LIGHT TO REPORT EMESIS CONSISTING OF HOT CEREAL HE ATE AFTER HIS WALK. PT DENIES NAUSEA - STATES IT "JUST CAME UP WITH SOME BILE". PT DENIES WANTING ANTIEMETIC AT THIS TIME. FURTHER EDUCATION ON HPYLORI AND GASTROPARESIS. AT BEDSIDE AND DOES NOT ASK ANY QUESTIONS AT THIS TIME.
--- NOTE | 2023-06-21 10:52 | NUR ---
PT USES CALL LIGHT TO REPORT EMESIS - YELLOW/GREEN BILE APPROX 75ML, PRN COMPAZINE ADMINISTERED. AWARE.
--- NOTE | 2023-06-21 11:28 | NUR ---
pt resting in bed on side with eyes closed, rr even and unlabored. no sign of further emesis or distress. at bedside, call light in reach.
--- NOTE | 2023-06-21 12:30 | NUR ---
resting, eyes closed, laying on left side, room air, no s/sx distress
[2023-06-21 13:46] VITALS: BP 124/79
--- NOTE | 2023-06-21 13:52 | NUR ---
pt in bed, eyes closed, awakes easily. room air, coop with assessment. no further c/o dry heaving or n/v. cont on full liquids. Up walking hallways with primary RN.
--- NOTE | 2023-06-21 14:08 | NUR ---
pt ambulating in hallway with this rn - 3 large laps complete, no pain reported. back to bed, further ambulation encouraged. call light in reach.
--- NOTE | 2023-06-21 17:02 | NUR ---
AWAKE, LAYING IN BED, NO C/O N/V OR PAIN. CALL LIGHT AT HANDS REACH. INDEPENDENT IN ROOM
[2023-06-21 17:41] VITALS: BP 145/90
--- NOTE | 2023-06-21 19:21 | NUR ---
SHIFT REPORT RECEIVED FROM AGGIE HUFFMAN, PT ALERT AND ORIENTED, WITHOUT REQUESTS AT THIS TIME, DENIES N/V AT THIS TIME.
[2023-06-21 21:19] VITALS: BP 142/86
--- NOTE | 2023-06-21 22:25 | NUR ---
PT LAYING ON RIGHT SIDE WITH EYES CLOSED, AWAKEN FOR ASSESSMENT, PT ALERT AND WITHOUT REQUESTS, SL FLUSHES WELL IN LEFT FOREARM, SITE INTACT, NOTED MIRALX REMAINS AT BEDSIDE, PT STATES HE KNOWS. PT RESTING.
--- NOTE | 2023-06-21 22:33 | NUR ---
VS AND I/O COMPLETED PER NIKHIL RN, VS REVIEWED, PT WITHOUT REQUESTS REPORTED AT THIS TIME.
--- NOTE | 2023-06-21 23:30 | NUR ---
RN CALLED TO ROOM, PT REQUESTING TYLENOL FOR FRONTAL HEADACHE, MEDICATED PER ORDER, PT FEELS HE MAY NOT BE DRINKING ENOUGH WATER, PT WITHOUT OTHER REQUESTS AT THIS TIME.
--- NOTE | 2023-06-22 00:57 | NUR ---
PT APPEARS TO SLEEP, LAYING ON LEFT SIDE, RESP EVEN AND REG
--- NOTE | 2023-06-22 01:44 | NUR ---
PT ASLEEP, RESP EVEN AND REG, WITHOUT DISTRESS.
--- NOTE | 2023-06-22 03:40 | NUR ---
PT LAYING ON RIGHT SIDE, RESP EVEN AND REG, WITHOUT DISTRESS.
--- NOTE | 2023-06-22 05:10 | NUR ---
PT ASLEEP, RESP EVEN AND REG, WITHOUT DISTRESS.
[2023-06-22 06:20] VITALS: BP 144/82
--- NOTE | 2023-06-22 06:20 | NUR ---
PT AWAKE AND ALERT, TEXTING ON PHONE, RECENTLY UP TO VOID 300ML JE[place] YELLOW URINE, CURRENTLY IN BED, VS STABLE, DENIES LUGO, ABDOMINAL DISCOMFORT OR OTHER PAIN, ASSESSMENT COMPLETED AND UNCHANGED, PT PLANNING TO ORDER BRECKFAST.
--- NOTE | 2023-06-22 07:35 | NUR ---
PT SLEEPING SOUNDLY AT TIME OF SHIFT REPORT, LEFT UNDISTURBED. FRESH H20 TO BEDSIDE CALL LIGHT IN REACH
[2023-06-22 08:23] VITALS: BP 174/86
[2023-06-22 09:19] VITALS: BP 117/64
--- NOTE | 2023-06-22 09:25 | NUR ---
PT TOLERATING BITES OF MORNING MEAL WITH NO PAIN SO FAR. PT IS BEING VERY CAUTIOUS DUE TO CONCERN OF ONGOING PAIN WITH FOOD INTAKE. IS PRESENT IN THE ROOM PT DENIES FURTHER NEEDS FROM THIS REGULATOR TESTER
--- NOTE | 2023-06-22 10:32 | NUR ---
PATIENT INDEPENDENT IN SHOWER, IN ROOM. AM CARE, VANNESSA CARE, SKIN CARE, SHAMPOO DONE. NEW GOWN PROVIDED. PATIENT NOW BACK TO SITTING UP IN BED. CALL LIGHT IN REACH. NO FURTHER NEEDS AT THIS TIME.
--- NOTE | 2023-06-22 10:41 | NUR ---
SPOKE TO PATIENT ABOUT THE DISCHARGE PLAN. THE PATIENT IS FEELING BETTER TODAY. PATIENT WILL BE HERE 1-2 DAYS MORE. PATIENT HAS FRIENDS AND FAMILY THAT ARE WILLING TO HELP WHEN THE PATIENT GOES HOME. CM WILL CONTINUE TO MONITOR CLOSELY FOR ANY NEW ISSUES OR CONCERNS.THE PATIENT WILL DC HOME WHEN MEDICALLY STABLE.
--- NOTE | 2023-06-22 11:07 | NUR ---
Patient now on a Soft Diet. He was sitting on the edge of bed talking to his who is visiting in the room. He had a full liquid breakfast and tolerated it well. I wanted to make sure he was ok with meatloaf, mashed potatoes and steamed carrots for lunch and he said "yes, that all sounds good." He and his asked a couple more questions about his diet for when he goes home. I provided answers and suggested he avoid a large amount of raw fruits and veggies for a few more days as he is reintroducing solid food now after 8 days of liquids. He likes coffee, no milk to drink, no OJ. I will make a note to not send tomato soup or tomato sauce to keep the diet more bland. Will continue to monitor while here.
--- NOTE | 2023-06-22 11:16 | NUR ---
PT HAD SHOWER EARLIER, WELL TOLERATED. RESTING IN BED NOW PRESENT IN THE ROOM. PT AGREES TO AMBULATE THE HALLS THIS SHIFT. DENIES DISCOMFORTS OR NEEDS. REPORTS DR OGDEN IN EARLIER DIET ADVANCED
--- NOTE | 2023-06-22 13:00 | NUR ---
PT UP INDEPENDANTLY IN THE ROOM HAS A BOWEL MOVEMENT. AMBULATES THE MAGDALENO SEVERAL ROUNDS WITH HIS RETURNS TO RESTING IN BED
[2023-06-22 14:15] VITALS: BP 133/73
--- NOTE | 2023-06-22 14:17 | NUR ---
PATIENT SITTING UP IN BED TALKING WITH . VITALS AND I&O'S CHARTED. CALL LIGHT IN REACH. NO FURTHER NEEDS AT THIS TIME.
--- NOTE | 2023-06-22 14:18 | NUR ---
UR NOTE: MCG PANCREATITIS (ISC) INPATIENT 06/21/23 VARIANCE GL DAY 3 06/22/23 VARIANCE GL DAY 3
--- NOTE | 2023-06-22 14:32 | NUR ---
PT AMBULATES THE MAGDALENO AGAIN REPORTS A 2ND BM THIS SHIFT. HE HAS NO C/O DISCOMFORT SINCE NOON MEAL OF MEATLOAF. RESTING IN BED NOW DENIES NEEDS OF
--- NOTE | 2023-06-22 18:00 | NUR ---
PT AMBULATES THE MAGDALENO AGAIN EATS 2/3 OF EVENING MEAL WITHOUT PAIN OR NAUSEA. REMAINS UP IN THE ROOM DENIES NEEDS OF
[2023-06-22 18:02] VITALS: BP 146/75
--- NOTE | 2023-06-22 18:07 | NUR ---
PATIENT IND. IN ROOM. PATIENT SITTING UP IN BED AT THIS TIME. VITALS AND I&O'S CHARTED. CALL LIGHT IN REACH. NO FURTHER NEEDS AT THIS TIME.
--- NOTE | 2023-06-22 19:20 | NUR ---
REPORT RECEIVED FROM NATHANAEL JAQUEZ. pt RESTING IN BED AWAKE. DENIES NEEDS. CALL LIGHT IN REACH.
[2023-06-22 20:03] VITALS: BP 150/94
--- NOTE | 2023-06-22 20:16 | NUR ---
CALL LIGHT ANSWERED. pt COMPLAINS OF "UNWELL FEELING" "I THINK I OVER DID THE FOOD TODAY, NOT NAUSEOUS, BUT FEEL CRUMMY." PRN ZOFRAN ADMINISTERED. ASSESSMENT COMPLETE. BOWEL TONES ACTIVE, ABD SOFT, DISTENDED, pt DENIES ANY PAIN. VSS. CALL LIGHT IN REACH. ICE WATER REFILLED.
--- NOTE | 2023-06-22 23:18 | NUR ---
IN ROOM TO CHECK ON pt. pt REQUESTING NAUSEA MEDICATION. PRN MEDICATION ADMINISTERED. NO EMESIS. pt STATES "NOT SURE IF IT'S REALLY NAUSEA OR JUST WANTING TO GET A GOOD NIGHT SLEEP". CALL LIGHT IN REACH. LIGHTS OFF IN ROOM.
--- NOTE | 2023-06-23 02:32 | NUR ---
CHECKED ON pt. RESTING IN BED WITH EYES CLOSED. BREATHING EQUAL AND UNLABORED. NO DISTRESS NOTED.
[2023-06-23 05:59] VITALS: BP 131/79
--- NOTE | 2023-06-23 06:02 | NUR ---
pt SLEEPING, AWAKENS TO VOICE. VSS. URINE EMPTIED FROM HAT. BREAKFAST ORDER PLACED FOR pt. GI ASSESSMENT COMPLETE. pt DENIES PAIN OR NAUSEA. pt REQUESTING TO SLEEP. IV D/C'D PER pt REQUEST FOR COMFORT. CALL LIGHT IN REACH.
[2023-06-23] MEDS ORDERED: PROTONIX40 MG PO (06:35)
--- NOTE | 2023-06-23 07:42 | NUR ---
PT RESTING ON HIS SIDE EYES CLOSED AT TIME OF SHIFT REPORT, LEFT UNDISTURBED. FRESH H20 AND CALL LIGHT AT BEDSIDE. HE CONTINUES RESTING AT THIS TIME
--- NOTE | 2023-06-23 08:59 | NUR ---
PT FEELING WELL THIS MORNING STATES HE FEELS LIKE HE'S READY TO GO HOME.
--- NOTE | 2023-06-23 09:30 | NUR ---
Spoke with Monty and his . He denies needs. Feeling better and states he is no longer + for H pylori. Plans on dc to home with today, NO need.
[2023-06-23 09:40] VITALS: BP 128/72
== END 2023-06-23 09:45 | disposition home or self-care (01) | DRG 440 ==
LOC: ED 20:24 → MS 20:25
PROVIDERS: Emergency Medicine; ADMIT Family Medicine; ATTEND Family Medicine
DX: K85.90 Acute pancreatitis without necrosis or infection, unspecified (principal); I10 Essential (primary) hypertension; E78.00 Pure hypercholesterolemia, unspecified; Z11.52 Encounter for screening for COVID-19; B96.81 Helicobacter pylori [H. pylori] as the cause of diseases classified elsewhere; K59.00 Constipation, unspecified; Z79.899 Other long term (current) drug therapy; Z79.2 Long term (current) use of antibiotics
CPT/HCPCS: 36415; 74018; 74177; 76705; 80053; 80061; 81003; 83690; 85025; 87502; 94762; 96361; 96372; 96375; 96376; 99285-25; A9270; C9113; C9803; G0378; J0780; J1170; J1650; J2405; J2765; J3480; J3490; J7030; J7060; J7121; Q9967; U0002